=== PATIENT | male | born 1950 | race Caucasian/White ===

== ENCOUNTER 2024-03-02 19:30 | Inpatient (IN) | payer MEDICARE, OTHER, SELFPAY ==
[2024-03-02] VITALS (10 sets, daily range): BP systolic 67–115; BP diastolic 34–63; PULSE 114–160; RESP 18–39; TEMP 37.8–38.9; O2SAT 92–97; BMI 25.2; BMI 23.6
[2024-03-02] MEDS: sodium chloride 0.9% 1,000 ML 999 ML IV ×3 (20:09→20:54)
[2024-03-02] MEDS: ondansetron 2 mg/ML SDV 2 mL 4 MG IVP (20:19)
[2024-03-02] MEDS: morphine 4 mg/mL SDV 1 mL IVP (20:19)
--- NOTE | 2024-03-02 20:19 | XRR_ITS ---
PROCEDURE INFORMATION: Exam: XR Chest Exam date and time: 03/02/2024 8:23 PM Age: 73 years old Clinical indication: Central line, non-tunnelled; TECHNIQUE: Imaging protocol: Radiologic exam of the chest. Views: 1 view. COMPARISON: No relevant prior studies available. FINDINGS: Tubes, catheters and devices: Central venous catheter tip projects over the cavoatrial junction. Lungs: There are prominent interstitial markings. Pleural spaces: Unremarkable. No pleural effusion. No pneumothorax. Heart/Mediastinum: Unremarkable. No cardiomegaly. Bones/joints: Unremarkable. XR/XR chest 1V portable [id number] IMPRESSION: 1. Central venous catheter tip projects over the cavoatrial junction. 2. There are prominent interstitial markings.
[2024-03-02] MEDS: norepinephrine 4 MG/250 ML BAG 18.75 MG IV (20:25)
--- NOTE | 2024-03-02 20:30 | W.ED.AMS ---
HPI - Altered Mental Status General: Chief Complaint: Altered Mental Status Stated Complaint: n/v Time Seen by Provider: 03/02/24 19:32 History of Present Illness: 73-year-old male Evidently with a history of hemolytic anemia. He presents with fever, vomiting, and lethargy. The patient himself is not giving much more history. He did have a large bowel movement on arrival here. Fever is 102. Related Data Home Medications Medication Instructions Recorded Confirmed atorvastatin 20 mg tablet 20 mg PO EVERY OTHER DAY 12/03/23 03/03/24 omeprazole 20 mg capsule,delayed 20 mg PO DAILY 12/03/23 03/03/24 release tamsulosin 0.4 mg capsule 0.4 mg PO DAILY 12/03/23 03/03/24 warfarin 5 mg tablet 7.5 mg PO DAILY 12/03/23 03/03/24 warfarin 5 mg tablet See Rx Instructions .Route .COMPLEX 03/03/24 03/03/24 Previous Rx's Medication Instructions Recorded prednisone 20 mg tablet 40 mg (2 x 20 mg) PO daily #10 tabs 12/03/23 Allergies Allergy/AdvReac Type Severity Reaction Status Date / Time ceftriaxone Allergy rash Verified 12/03/23 11:05 iodine Allergy rash Verified 12/03/23 11:05 Penicillins Allergy Rash Verified 12/03/23 11:01 sertraline Allergy Swelling Verified 12/03/23 11:05 [facility] [place] [facility] PFSH: Medical History GERD (gastroesophageal reflux disease) BPH (benign prostatic hyperplasia) Abnormal cystoscopy Pulmonary embolism Surgical History S/P cholecystectomy Social History Smoking and tobacco/nicotine status: former use of tobacco/nicotine Physical Exam Const: COMMON NORMALS: no acute distress EXAM LIMITATIONS: altered mental status GENERAL APPEARANCE: cooperative, ill appearing and frail appearing ORIENTATION/CONSCIOUSNESS: Yes awake and Yes oriented to person HENMT: COMMON NORMALS: normocephalic and atraumatic HEAD & SCALP: normocephalic and atraumatic FACE & SINUS: normal facial exam Eye: COMMON NORMALS: Equal, round and reactive pupils present and EOMs intact bilaterally PUPIL: Yes Equal, round and reactive pupils present Chest: CHEST: Yes Symmetrical chest wall rise Resp: COMMON NORMALS: clear to auscultation bilaterally EFFORT & INSPECTION: Yes tachypneic, Yes labored and No retractions AUSCULTATION: clear to auscultation bilaterally Cardio: COMMON NORMALS: regular rhythm RATE: tachycardic RHYTHM: regular rhythm GI: COMMON NORMALS: Soft to palpation INSPECTION: Yes normal to inspection and No abdominal wall ecchymosis PALPATION: Yes Soft to palpation, Yes Tenderness to palpation present (GI) (diffusely) and Yes Guarding due to palpation present (GI) Extremity: NARRATIVE EXTREMITY EXAM: cool, atraumatic Neuro: SENSORIUM/ORIENTATION: Yes oriented to person Procedures Central Line Placement Right IJ: Time Out Performed: No Patient Placed on Monitor/Pulse Ox: Yes MD Prep: mask, gown and gloves Central Line Prep: Chlorhexidine scrub Local Anesthetic: lidocaine 1% Amount of anesthesia used (mL): 3 Ultrasound Used for Placement: Yes Central Line Lumen Inserted: triple Post Procedure: sutured in place, good blood return, all ports aspirated, flushed, capped and sterile dressing applied Post Procedure X-Ray: tip of catheter in good position and no pneumothorax seen Patient Tolerated Procedure: well and no complications Complications: none Additional Comments: completed by Dr. Toney Course Vital Signs: Vital signs: Vital Signs Temperature 99.3 F 03/03/24 02:20 Pulse Rate 109 H 03/03/24 02:15 Respiratory Rate 26 H 03/03/24 02:15 Blood Pressure 78/50 03/03/24 02:15 Pulse Oximetry 93 03/03/24 02:15 Oxygen Delivery Me thod Nasal Cannula 03/02/24 23:45 Oxygen Flow Rate 2 03/02/24 21:53 MDM - Altered Mental Status Medical Decision Making 73-year-old patient presenting with vomiting and diarrhea and an elevated temperature. He has mild mental status changes as well, and is in unreliable historian at the point of exam. His blood pressure is significantly low, in the 60s and 70s systolic. He is given well over a 30 mL/kg sepsis bolus IV. He started on pressors, Levophed and vasopressin at 1 point. Levaquin and vancomycin are given. Central line placed. The patient is significantly improved after these interventions. Is now normotensive. CBC is normal. His potassium is 3.1. His bicarb is 17. His lactic is significantly elevated. However, CT of the chest abdomen pelvis does not reveal a cause of sepsis. His CRP is only 3. Leukocyte esterase is negative. Hematuria is present, but there are no obstructive stones present. He would have the ICU. Continue blood pressure support with fluid and pressors as needed. Continue antibiotics. Hospitalist has seen the patient in the ER. Lab Data 03/02/24 20:09 03/02/24 20:09 Radiology Impressions Chest X-Ray 03/02/24 20:19 IMPRESSION: 1. Central venous catheter tip projects over the cavoatrial junction. 2. There are prominent interstitial markings. Chest/Abdomen/Pelvis CT 03/02/24 21:12 IMPRESSION: 1. No pulmonary emboli. 2. Retained secretions in the esophagus up to the level of the thoracic inlet. IMPRESSION: 1. No bowel obstruction or inflammatory process associated with the bowel. 2. No free air or significant free fluid in the abdomen or pelvis. 3. No evidence of appendicitis. 4. Periportal edema which can be seen the setting of acute hepatitis. Laboratory Results WBC 11.13 10^3/uL (3.29-11.43) 03/02/24 20:09 RBC 3.91 10^6/uL (3.85-5.65) 03/02/24 20:09 Hgb 12.60 g/dL (11.27-16.99) 03/02/24 20:09 Hct 38.0 % (37-53) 03/02/24 20:09 MCV 97.2 fl (82-101) 03/02/24 20:09 MCH 32.2 pg (27-33) 03/02/24 20:09 MCHC 33.2 g/dL (30-55) 03/02/24 20: RDW 13.5 % (12.1-15.1) 03/02/24 20:09 Plt Count 346 10^3/cmm (157-399) 03/02/24 20:09 MPV 10.4 fL (7.4-10.4) 03/02/24 20:09 Neut % (Auto) 95.6 % 03/02/24 20:09 Lymph % (Auto) 2.2 % 03/02/24 20:09 [place] % (Auto) 0.4 % 03/02/24 20:09 Eos % (Auto) 0.1 % 03/02/24 20:09 Baso % (Auto) 0.2 % 03/02/24 20:09 Neut # (Auto) 10.64 10^3/uL (1.8-7.7) H 03/02/24 20:09 Lymph # (Auto) 0.2 10^3/uL (0.8-4.8) L 03/02/24 20:09 [place] # (Auto) 0.1 10^3/uL (0.2-0.9) L 03/02/24 20:09 Eos # (Auto) 0.0 10^3/uL (0.0-0.8) 03/02/24 20:09 Baso # (Auto) 0.0 10^3/uL (0.0-0.1) 03/02/24 20:09 Nucleated RBC % (auto) 0.3 % 03/02/24 20:09 Nucleated RBCs # 0.0 /100WBC 03/02/24 20:09 Sodium 139 mmol/L (136-145) 03/02/24 20:09 Potassium 3.1 mmol/L (3.5-5.1) L 03/02/24 20:09 Chloride 106 mmol/L (98-107) 03/02/24 20:09 Carbon Dioxide 17 mmol/L (22-29) L 03/02/24 20:09 Anion Gap 19.1 (5-19) H 03/02/24 20:09 BUN 23 mg/dL (8-23) 03/02/24 20:09 Creatinine 1.1 mg/dL (0.7-1.2) 03/02/24 20:09 GFR Calculation Not Reportable 03/02/24 20:09 Glucose 121 mg/dL (65-115) H 03/02/24 20:09 Estimat Average Glucose 94 03/02/24 20:09 Hemoglobin A1c 4.9 % (4.0-6.0) 03/02/24 20:09 Calculated Osmolality 293 mOsm/kg (285-295) 03/02/24 20:09 Lactic Acid 6.7 mmol/L (0.5-2.2) H* 03/02/24 20:09 Lactic Acid (Sepsis) 7.2 mmol/L (0.5-2.2) H* 03/02/24 22:06 Calcium 8.4 mg/dL (8.5-10.5) L 03/02/24 20:09 Total Bilirubin 0.7 mg/dL (0.15-1.2) 03/02/24 20:09 AST 19 U/L (0-40) 03/02/24 20:09 ALT 20 U/L (0-41) 03/02/24 20:09 Alkaline Phosphatase 77 U/L (40-130) 03/02/24 20:09 Troponin T Baseline 17 ng/L (0-15) H 03/02/24 20:31 Troponin T 120 Minute 36.91 ng/L (0-15) H 03/02/24 22:06 Delta Troponin T 19.91 ABS# (0-10) H* 03/02/24 22:06 C-Reactive Protein 3.0 mg/L (0.0-4.9) 03/02/24 20:09 NT-Pro-B Natriuret Pep 256 pg/mL (0-450) 03/02/24 20:31 Total Protein 5.4 g/dL (6.6-8.7) L 03/02/24 20:09 Albumin 3.3 g/dL (3.5-5.2) L 03/02/24 20:09 Globulin 2.1 g/dL (1.3-4.6) 03/02/24 20:09 Lipase 28 U/L (13-60) 03/02/24 20:09 Vitamin B12 238 pg/mL (232-1245) 03/02/24 20:31 TSH 6.53 uIU/mL (0.27-4.20) H 03/02/24 20:31 Urine Color Yellow (Yellow) 03/02/24 20:41 Urine Appearance Clear (CLEAR) 03/02/24 20:41 Urine pH 5.5 (5-7) 03/02/24 20:41 Ur Specific [place] 1.021 (1.005-1.030) 03/02/24 20:41 Urine Protein 1+ (Negative) A 03/02/24 20:41 Urine Glucose (UA) 2+ (Normal) H 03/02/24 20:41 Urine Ketones Negative (Negative) 03/02/24 20:41 Urine Blood 3+ (Negative) A 03/02/24 20:41 Urine Nitrate Negative (Negative) 03/02/24 20:41 Urine Bilirubin Negative (Negative) 03/02/24 20:41 Urine Urobilinogen 0.2 mg/dL (Negative) 03/02/24 20:41 Ur Leukocyte Esterase Negative (Negative) 03/02/24 20:41 Urine RBC 10-15 /hpf (0-2) H 03/02/24 20:41 Urine WBC 0-4 /hpf (0-5) H 03/02/24 20:41 Ur Squamous Epith Cells 0-4 /hpf (0-5) H 03/02/24 20:41 Amorphous Sediment Not Reportable 03/02/24 20:41 Urine Bacteria Trace /hpf (NONE) 03/02/24 20:41 Coronavirus (PCR) Negative (Negative) 03/02/24 20:05 Influenza A (PCR) Negative (Negative) 03/02/24 20:05 Influenza Type B (PCR) Negative (Negative) 03/02/24 20:05 RSV (PCR) Negative (Negative) 03/02/24 20:05 All radiology interpretation(s) finalized by discharge Critical Care Time Critical Care Time: Critical Care Time: Yes Total Critical Care Time: 40 Attestation: This case had a high probability of a clinically significant, sudden, or life threatening deterioration of this patient's condition which required my full and direct attention, intervention and personal management. Time spent does not include any procedures performed. Discharge Plan Discharge Patient Disposition: Admitted As Inpatient Admit Provider: Addis Nath Clinical Impression: Non-STEMI (non-ST elevated myocardial infarction), Septic shock Condition: Critical Coding Level of Care Code ED Field Clinical Engineer for José Antonio Vasquez
[2024-03-02] MEDS: levofloxacin-dextrose 5 % 750 MG/150 ML PREMIX 100 MG IV (20:31)
[2024-03-02 20:32] LABS: Basophils % 0.2 %; Eosinophils % 0.1 %; Lymphocytes # 0.2 10^3/uL (0.8-4.8); Lymphocytes % 2.2 %; Mean Corpuscular HGB Conc 33.2 g/dL (30-55); Mean Corpuscular Hemoglobin 32.2 pg (27-33); Mean Corpuscular Volume 97.2 fl (82-101); Mean Platelet Volume 10.4 fL (7.4-10.4); Monocytes # 0.1 10^3/uL (0.2-0.9); Monocytes % 0.4 %; Neutrophils # 10.64 10^3/uL (1.8-7.7); Neutrophils % 95.6 %; Nucleated Red Blood Cells % 0.3 %; Platelet Count 346 10^3/cmm (157-399); Red Blood Count 3.91 10^6/uL (3.85-5.65); Red Cell Distribution Width 13.5 % (12.1-15.1); White Blood Count 11.13 10^3/uL (3.29-11.43)
[2024-03-02 20:46] LABS: Alanine Aminotransferase 20 U/L (0-41); Albumin Level 3.3 g/dL (3.5-5.2); Alkaline Phosphatase 77 U/L (40-130); Aspartate Amino Transferase 19 U/L (0-40); Blood Urea Nitrogen 23 mg/dL (8-23); Calcium 8.4 mg/dL (8.5-10.5); Carbon Dioxide 17 mmol/L (22-29); Chloride 106 mmol/L (98-107); Creatinine Clr Calc Pharmacy 64.0316; Globulin 2.1 g/dL (1.3-4.6); Glucose 121 mg/dL (65-115); Lipase 28 U/L (13-60); Osmolality Calculated 293 mOsm/kg (285-295); Sodium 139 mmol/L (136-145); Total Bilirubin 0.7 mg/dL (0.15-1.2); Total Protein 5.4 g/dL (6.6-8.7)
[2024-03-02 20:46] LABS: Bilirubin Urine Negative (Negative); Blood Urine 3+ (Negative); Glucose Urine UA 2+ (Normal); Ketones Urine Negative (Negative); Leukocyte Esterase Urine Negative (Negative); Nitrate Urine Negative (Negative); Protein Urine 1+ (Negative); Specific Gravity, Urine 1.021 (1.005-1.030); Urine Appearance Clear (CLEAR); Urine Color Yellow (Yellow); Urobilinogen Urine 0.2 mg/dL (Negative); pH Urine 5.5 (5-7)
[2024-03-02 20:47] LABS: Anion Gap 19.1 (5-19); Potassium 3.1 mmol/L (3.5-5.1)
[2024-03-02 20:58] LABS: Lactic Sepsis W/Reflex 6.7 mmol/L (0.5-2.2)
[2024-03-02 21:01] LABS: Add Urine Microscopic? YES; Bacteria Urine TRACE /hpf; Squamous Epithelial Cell Urine 0-4 /hpf (0-5); UA Manual Slide Review YES; WBC Urine 0-4 /hpf (0-5)
[2024-03-02] MEDS: ketorolac 30 mg/mL INJ 15 MG IVP (21:05)
[2024-03-02] MEDS: vasopressin 40 UNIT/100 ML PREMIX IV (21:10)
--- NOTE | 2024-03-02 21:12 | CTR_ITS ---
PROCEDURE INFORMATION: Exam: CTA Chest With Contrast Exam date and time: 03/02/2024 9:37 PM Age: 73 years old Clinical indication: Nausea and vomiting; Abdominal pain; Generalized; Shortness of breath; Other: N/a; Prior surgery; Surgery date: 6+ months; Surgery type: Splenectomy. Gb. Patient HX: Tachycardia with hypoxia and hypotension. Diffuse abd pain with n/v. History of lymphoma. ; Additional info: Tachycardia, hypoxia, abd pain vomiting TECHNIQUE: Imaging protocol: Computed tomographic angiography of the chest with contrast. Exam focused on the arteries. 3D rendering (Not supervised by radiologist): MIP and/or 3D reconstructed images were created by the technologist. Radiation optimization: All CT scans at this facility use at least one of these dose optimization techniques: automated exposure control; mA and/or kV adjustment per patient size (includes targeted exams where dose is matched to clinical indication); or iterative reconstruction. Contrast material: OMNI 350; Contrast volume: 167 ml; Contrast route: INTRAVENOUS (IV); COMPARISON: CR (CHEST, ) 03/02/2024 8:23 PM RADIATION DOSE METRICS: Total DLP (mGy-cm): 2409.1 FINDINGS: Pulmonary arteries: No pulmonary emboli. Aorta: Unremarkable. No aortic aneurysm. No aortic dissection. Lungs: Unremarkable. No consolidation. No masses. Pleural spaces: Unremarkable. No pneumothorax. No pleural effusion. Heart: Unremarkable. No cardiomegaly. No pericardial effusion. Coronary arteries: Coronary arterial atherosclerotic calcifications are present. Esophagus: Air-fluid level in the esophagus up to the level of the thoracic inlet. Small hiatal hernia Lymph nodes: Multiple prominent left axillary lymph nodes measuring up to 9 mm in short axis which may be reactive in nature. Bones/joints: Unremarkable. No acute fracture. Soft tissues: Unremarkable. PROCEDURE INFORMATION: Exam: CT Abdomen And Pelvis With Contrast Exam date and time: 03/02/2024 9:37 PM Age: 73 years old Clinical indication: Nausea and vomiting; Abdominal pain; Generalized; Shortness of breath; Other: N/a; Prior surgery; Surgery date: 6+ months; Surgery type: Splenectomy. Gb. Patient HX: Tachycardia with hypoxia and hypotension. Diffuse abd pain with n/v. History of lymphoma. ; Additional info: Tachycardia, hypoxia, abd pain vomiting TECHNIQUE: Imaging protocol: Computed tomography of the abdomen and pelvis with contrast. Radiation optimization: All CT scans at this facility use at least one of these dose optimization techniques: automated exposure control; mA and/or kV adjustment per patient size (includes targeted exams where dose is matched to clinical indication); or iterative reconstruction. Contrast material: OMNI 350; Contrast volume: 167 ml; Contrast route: INTRAVENOUS (IV); COMPARISON: CR (CHEST, ) 03/02/2024 8:23 PM RADIATION DOSE METRICS: Total DLP (mGy-cm): 2409.1 FINDINGS: Liver: Periportal edema. No mass. Gallbladder and biliary ducts: The gallbladder is absent. Pancreas: Normal. No ductal dilation. Spleen: The spleen is absent. Adrenal glands: Normal. No mass. Kidneys and ureters: Multiple nonobstructing stones in the right kidney measuring up to 7 mm and multiple nonobstructing stones in the left kidney measuring up to 6 mm. No hydronephrosis. Stomach and bowel: Unremarkable. No obstruction. No mucosal thickening. Appendix: No evidence of appendicitis. Intraperitoneal space: Unremarkable. No free air. No significant fluid collection. Vasculature: Unremarkable. No abdominal aortic aneurysm. Lymph nodes: Unremarkable. No enlarged lymph nodes. Urinary bladder: There is a Burroughs catheter in the bladder. The bladder is decompressed. Reproductive: Unremarkable as visualized. Bones/joints: Unremarkable. No acute fracture. Soft tissues: Unremarkable. CT/CT angio chest w abd pel w con IMPRESSION: 1. No pulmonary emboli. 2. Retained secretions in the esophagus up to the level of the thoracic inlet. IMPRESSION: 1. No bowel obstruction or inflammatory process associated with the bowel. 2. No free air or significant free fluid in the abdomen or pelvis. 3. No evidence of appendicitis. 4. Periportal edema which can be seen the setting of acute hepatitis.
[2024-03-02 21:22] LABS: Covid PCR NEGATIVE (Negative); Influenza A NEGATIVE (Negative); Influenza B NEGATIVE (Negative); Respiratory Syncytial Virus Ce NEGATIVE (Negative)
[2024-03-02 21:26] LABS: Troponin(5th) Baseline 17 ng/L (0-15)
[2024-03-02 21:28] LABS: Reflex Lactate Order REFLEX LACTIC ORDERD
[2024-03-02 21:35] LABS: NT Pro B Type Natriuretic Pept 256 pg/mL (0-450)
[2024-03-02] MEDS: iohexol 350 mg/mL 500 mL Btl (per mL) IV (21:40)
[2024-03-02] MEDS: methylPREDNISolone sod succ 40 mg/mL INJ IVP (21:52)
[2024-03-02] MEDS: diphenhydrAMINE 50 mg/mL SDV 1mL IVP (21:52)
--- NOTE | 2024-03-02 22:00 | ECG_ITS ---
[facility] Test Date: 2024-03-02 Pat Name: Solis Johnston Department: Room: Gender: Male Psychiatrist: : 1950 Requested By: Manuel Toney Order Number: [id number] Reading MD: HENRY IYER Measurements Intervals [place] Rate: 138 P: 85 UT: 168 QRS: 12 QRSD: 86 T: 84 QT: 329 QTc: 499 Interpretive Statements SINUS TACHYCARDIA POSSIBLE RIGHT VENTRICULAR CONDUCTION DELAY [RSR (QR) IN V1/V2] NONSPECIFIC ST & T-WAVE ABNORMALITY ABNORMAL RHYTHM ECG No previous ECG available for comparison Electronically Signed On 03-04-2024 16:16:58 SCREEN PRINTER HELPER by HENRY IYER [email or web address]
[2024-03-02] MEDS: VANCOMYCIN ADD-Vantage 1,000 MG in 0.9% NaCl ADD-Vantage 250 ML 250 MG IV (22:15)
[2024-03-02 22:45] LABS: Troponin 5 2HR 36.91 ng/L (0-15)
[2024-03-02 22:46] LABS: Troponin 5 2HR Delta 19.91 ABS# (0-10)
[2024-03-02 22:51] LABS: Lactic Acid level (Lactate) 7.2 mmol/L (0.5-2.2)
--- NOTE | 2024-03-02 22:53 | P.HP_ITS ---
Providers/Chief Complaint 2 Chief Complaint: n/v History of Present Illness Solis Johnston is a 73 year old male with history of kidney stones, urine incontinence recently had cystoscopy at [facility], history of PE takes Coumadin presented to the hospital with chief complaint of generalized weakness fatigue rigors and chills. Family is at the bedside, is stating that Solis was working all day outside because it was very pleasant today, he came inside around 6 PM and then started complaining of weakness fatigue lethargy with chills. He was shivering. Patient is not endorsing any dysuria. Patient had 1-2 episode of emesis. Patient not endorsing shortness of breath or chest pain. Patient is showing signs of sepsis, no source has been identified, as per the he had similar incident in the past and no source was identified as well he had a CT chest abdomen pelvis which is showing nonobstructive kidney stones no signs of appendicitis, patient does not have a gallbladder, he was put on vasopressors in the ER by the time I saw him he was taken off pressors, he is getting IV fluids, Patient is not encephalopathic, suspicion for meningitis is low Review of Systems 2 Const: Reports: fever(s), chills, body aches and fatigue Eyes: Denies: change in vision ENMT: Denies: throat pain Card: Denies: chest pain Resp: Denies: dyspnea GI: Reports: nausea and vomiting; Denies: abdominal pain : Denies: flank pain Musc: Denies: neck pain Medications/Allergies Home Medications Medication Instructions Recorded Confirmed Last Taken Type atorvastatin 20 mg tablet 20 mg PO DAILY 12/03/23 12/03/23 Unknown History azithromycin 250 mg tablet See Rx Instructions PO .COMPLEX #6 12/03/23 12/03/23 Unknown Rx tabs omeprazole 20 mg capsule,delayed 20 mg PO DAILY 12/03/23 12/03/23 Unknown History release potassium chloride 10 mEq 10 meq PO DAILY 12/03/23 12/03/23 Unknown History capsule,extended release prednisone 20 mg tablet 40 mg (2 x 20 mg) PO daily #10 tabs 12/03/23 12/03/23 Unknown Rx tamsulosin 0.4 mg capsule 0.4 mg PO DAILY 12/03/23 12/03/23 Unknown History warfarin 5 mg tablet 5 mg PO DAILY 12/03/23 12/03/23 Unknown History Allergies Allergy/AdvReac Type Severity Reaction Status Date / Time ceftriaxone Allergy rash Verified 12/03/23 11:05 iodine Allergy rash Verified 12/03/23 11:05 Penicillins Allergy Rash Verified 12/03/23 11:01 sertraline Allergy Swelling Verified 12/03/23 11:05 PFSH Acute 2 PFSH: Medical History GERD (gastroesophageal reflux disease) BPH (benign prostatic hyperplasia) Abnormal cystoscopy Pulmonary embolism Surgical History S/P cholecystectomy Social History Smoking and tobacco/nicotine status: former use of tobacco/nicotine Vitals/I&O/Wt Last Vital Signs Temp 100.1 F H 03/02/24 21:53 Pulse 140 H 03/02/24 21:53 Resp 35 H 03/02/24 21:53 BP 115/56 03/02/24 21:53 Pulse Ox 95 03/02/24 21:53 O2 Del Method Nasal Cannula 03/02/24 21:53 O2 Flow Rate 2 03/02/24 21:53 03/02/24 03/02/24 03/02/24 06:59 14:59 22:59 Intake Total 2197.363 / 2197.363 Balance 2197.363 / 2197.363 Weight last 48 hrs Weight 82.1 kg Physical Exam 2 Narrative: Patient is awake and alert GCS 15 I do not suspect meningitis Clinical looks dehydrated Abdomen soft No active chest pain Currently on 2 L nasal cannula Febrile with tachycardia Stable blood pressure off pressors Tachypneic tachycardic Able to answer my questions Family at the bedside Burroughs catheter in place Cap refill less than 3 seconds No signs of encephalopathy Urinary Catheter Management: Burroughs: Cath Placed During This Visit: yes Urinary Catheter Date of Insertion: 03/02/24 Urinary Catheter Time of Insertion: 21:00 Data 03/02/24 20:09 03/02/24 20:09 Micro: Microbiology 03/02/24 20:31 Blood Culture - Preliminary Blood SPECIMEN COLLECTED 03/02/24 20:09 Blood Culture - Preliminary Blood SPECIMEN COLLECTED A&P Assessment and plan (1) Septic shock: (2) Bilateral kidney stones: (3) Lymph nodes enlarged: (4) Esophagitis: (5) Hiatal hernia: (6) Non-STEMI (non-ST elevated myocardial infarction): Plan Septic shock Patient required pressors in the ER for couple of hours, Criteria met with tachypnea tachycardia fever high lactic acid, Patient is not encephalopathic Does not suspect meningitis Nonobstructing kidney stones no significant signs of UTI Start patient on broad-spectrum antibiotics Patient has been taken off pressors in the ER, admit to ICU Left axillary lymphadenitis Esophagitis Add Protonix Non-STEMI No active chest pain EKG showing sinus tachycardia Serial troponin EKG Start ACS protocol Requested echo Hematuria related to kidney stones nonobstructing no sign of hydronephrosis, white count is not high on urinalysis to either Acute hypoxia: Interstitial markings on lung imaging: Currently requiring 2 L, Currently on broad-spectrum antibiotics for atypical pneumonia Patient worked outside all day today, Resp panel negative Full code GI soft diet GI prophylaxis Protonix DVT prophylaxis covered with therapeutic Lovenox Admit to ICU Attestations 2 Medical Necessity Statement*: More than 2 midnights anticipated Diagnoses Septic shock A41.9; R65.21 Bilateral kidney stones N20.0 Lymph nodes enlarged R59.9 Esophagitis K20.90 Hiatal hernia K44.9 Non-STEMI (non-ST elevated myocardial infarction) I21.4
[2024-03-03] VITALS (100 sets, daily range): BP systolic 78–115; BP diastolic 42–67; PULSE 105–136; RESP 15–47; TEMP 36.6–37.4; O2SAT 88–96
[2024-03-03 00:16] LABS: Estmated Average Glucose 94; Hemoglobin A1C 4.9 % (4.0-6.0)
[2024-03-03] MEDS: aspirin 325 mg EC Tablet PO (00:30)
[2024-03-03] MEDS: sodium chloride 0.9% 1,000 ML 999 ML IV (00:32)
[2024-03-03 00:35] LABS: Thyroid Stimulating Hormone 6.53 uIU/mL (0.27-4.20); Vitamin B12 238 pg/mL (232-1245)
[2024-03-03] MEDS: aztreonam 2,000 MG in sodium chloride 0.9% (plus) 100 ML 200 MG IV (00:39)
[2024-03-03] MEDS: acetaminophen 500 mg Tablet PO (00:53)
[2024-03-03 01:20] LABS: INR 3.04 (0.8-1.2)
[2024-03-03] MEDS: clopidogrel 300 mg Tablet PO (01:32)
[2024-03-03] MEDS: sodium chloride 0.9% 1,000 ML 75 ML IV ×2 (01:33→14:23)
[2024-03-03] MEDS: norepinephrine 4 MG/250 ML BAG 7.5 MG IV (02:05)
[2024-03-03] MEDS: hydrocortisone 100 mg/2 mL SDV IVP ×4 (03:28→22:09)
[2024-03-03 03:36] LABS: Hematocrit 32.2 % (37-53); Mean Corpuscular HGB Conc 32.3 g/dL (30-55); Mean Corpuscular Hemoglobin 32.1 pg (27-33); Mean Corpuscular Volume 99.4 fl (82-101); Mean Platelet Volume 10.6 fL (7.4-10.4); Platelet Count 235 10^3/cmm (157-399); Red Blood Count 3.24 10^6/uL (3.85-5.65); Red Cell Distribution Width 13.6 % (12.1-15.1); White Blood Count 21.05 10^3/uL (3.29-11.43)
--- NOTE | 2024-03-03 03:49 | ECG_ITS ---
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
[2024-03-03 03:50] LABS: INR 3.03 (0.8-1.2)
[2024-03-03 03:59] LABS: Alanine Aminotransferase 200 U/L (0-41); Albumin Level 2.7 g/dL (3.5-5.2); Alkaline Phosphatase 82 U/L (40-130); Anion Gap 17.1 (5-19); Aspartate Amino Transferase 461 U/L (0-40); Blood Urea Nitrogen 24 mg/dL (8-23); C Reactive Protein 31.3 mg/L (0.0-4.9); Calcium 7.6 mg/dL (8.5-10.5); Carbon Dioxide 18 mmol/L (22-29); Chloride 109 mmol/L (98-107); Creatinine Clr Calc Pharmacy 47.4603; Globulin 1.7 g/dL (1.3-4.6); Glucose 42 mg/dL (65-115); Magnesium 1.2 mg/dL (1.7-2.3); Osmolality Calculated 293 mOsm/kg (285-295); Phosphorus 2.1 mg/dL (2.5-4.5); Potassium 3.1 mmol/L (3.5-5.1); Sodium 141 mmol/L (136-145); Total Bilirubin 2.2 mg/dL (0.15-1.2); Total Protein 4.4 g/dL (6.6-8.7)
[2024-03-03 04:09] LABS: Procalcitonin 62.33 ng/mL (0-0.5)
[2024-03-03 04:11] LABS: Troponin 5 6HR 147.5 ng/L (0-15); Troponin 5 6HR Delta 130.5 ng/L (0-12)
[2024-03-03 04:20] LABS: Absolute Neutrophil 19.4 10^3/cmm (1.4-6.5); Absolute Segmented Neutrophil 15.8 10/cmm (1.6-7.1); Band Neutrophils Absolute 3.6 10^3/cmm (0.0-1.2); Eosinophils 0 %; Lymphocytes 1 %; Lymphocytes Absolute 0.2 10^3/cmm (1.2-3.4); Monocytes Absolute 0.4 10^3/cmm (0.1-0.6); Platelet Estimate Normal (Normal); Segmented Neutrophils 75 %; Slide Review Slide Review Perform; Total Cells Counted 100 (0-100)
[2024-03-03] MEDS: norepinephrine 4 MG/250 ML BAG 45 MG IV ×4 (08:34→23:40)
[2024-03-03] MEDS: VANCOMYCIN ADD-Vantage 1,000 MG in 0.9% NaCl ADD-Vantage 250 ML 250 MG IV ×2 (08:34→20:06)
[2024-03-03] MEDS: tamsulosin 0.4 mg Capsule PO (08:35)
[2024-03-03] MEDS: pantoprazole 40 mg SDV IVP ×2 (08:35→16:43)
[2024-03-03] MEDS: aspirin 81 mg EC Tablet PO (08:35)
[2024-03-03] MEDS: clopidogrel 75 mg Tablet PO (08:35)
--- NOTE | 2024-03-03 08:55 | PHA.VACGOAL ---
Vancomycin Goal - Goal Vancomycin Goal:: 15-20 mg/L Vancomycin Indication:: Other (SEPSIS) - Therapy Current therapy:: Other Antibiotic (AZTREONAM) Day of therpy:: Day []of [] . Actual body weight (kg): 165 lb 5.547 oz - Data Labs: WBC 21.05 10^3/uL (3.29-11.43) H 03/03/24 02:52 RBC 3.24 10^6/uL (3.85-5.65) L 03/03/24 02:52 Hgb 10.40 g/dL (11.27-16.99) L 03/03/24 02:52 Hct 32.2 % (37-53) L 03/03/24 02:52 MCV 99.4 fl (82-101) 03/03/24 02:52 MCH 32.1 pg (27-33) 03/03/24 02:52 MCHC 32.3 g/dL (30-55) 03/03/24 02:52 RDW 13.6 % (12.1-15.1) 03/03/24 02:52 Sodium 141 mmol/L (136-145) 03/03/24 02:52 Potassium 3.1 mmol/L (3.5-5.1) L 03/03/24 02:52 Chloride 109 mmol/L (98-107) H 03/03/24 02:52 Carbon Dioxide 18 mmol/L (22-29) L 03/03/24 02:52 Anion Gap 17.1 (5-19) 03/03/24 02:52 BUN 24 mg/dL (8-23) H 03/03/24 02:52 Creatinine 1.4 mg/dL (0.7-1.2) H 03/03/24 02:52 GFR Calculation Not Reportable 03/03/24 02:52 Last dialysis session:: N/A Treatment plan:: new consult Regimen:: TELEPHARMACY: INITIAL DOSE 1000mg Q12H Follow up:: WILL CONTINUE TO MONITOR AND FOLLOW UP DAILY
[2024-03-03 09:27] LABS: Glucose Point of Care 90 mg/dL (70-110)
--- NOTE | 2024-03-03 10:10 | P.PN_ITS ---
Subjective 2 Subjective: Overnight labs and H&P reviewed. 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 It appears that his biopsy in May of this year was inconclusive but due to high suspicion of lymphoma he has started chemotherapy with rituximab. He received cycle 3 of rituximab on Monday (today is Monday). 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 He is up-to-date with all postsplenectomy immunizations and follows with infectious disease at [facility] typically. He was recently diagnosed with autoimmune hemolytic anemia for which he is on a steroid taper currently. About 3 weeks ago he started treatment with prednisone 80 mg daily and has been tapered down gradually to prednisone 20 mg daily currently. Review of his LFTs from [facility] show that his AST ALT T. bili were elevated with maximum numbers of 170, 70, 3.5 respectively in January of this year, with treatment all of the above numbers had normalized by March 01, 2024. Patient appears to have some degree of chronic leukocytosis with white blood cell count ranging between 10-17 most recently. His states that high leukocyte count predates the use of steroids. He is on long-term warfarin due to a history of DVT and inability to afford Eliquis. He has been having intermittent diarrhea over the past few days. No known past history of C. difficile. History of strep gallolyticus bacteremia in January 2023 for which she received several weeks of ceftriaxone which she tolerated well. Ceftriaxone was listed as an allergy in his chart. Given this updated information, ceftriaxone has now been removed as an allergy. Patient also has a prescription for amoxicillin 1 g 3 times daily as needed to be initiated with onset of fever given he is high risk however states he has not had to use the prescription in the past year. His reported allergic reaction in the past was that of a rash. There is no underlying cardiac or orthopedic hardware. Medications: Reviewed: Yes Vitals/I&O/Wt Last Vital Signs Temp 98.8 F 03/03/24 06:00 Pulse 111 H 03/03/24 08:30 Resp 22 H 03/03/24 08:30 BP 103/51 03/03/24 08:30 Pulse Ox 96 03/03/24 08:30 O2 Del Method Nasal Cannula 03/02/24 23:45 O2 Flow Rate 2 03/02/24 21:53 03/02/24 03/03/24 03/03/24 22:59 06:59 14:59 Intake Total 2197.363 / 2197.363 575.875 / 2773.238 1514.125 / 1514.125 Output Total 900 / 900 Balance 2197.363 / 2197.363 -324.125 / 8728.397 7188.125 / 1514.125 Weight last 48 hrs Weight 75 kg Weight 74.5 kg Weight 82.1 kg Physical Exam 2 Narrative: General: No acute distress, AO x3 HEENT: PERRLA, pupils bilaterally equal and reactive, dry parched mucous membranes with coated tongue. Chest: Normal vesicular breath sounds, no added sounds, equal good air entry bilaterally CVS: S1-S2 regular, no murmurs, no tachycardia, no gallops, no rubs Abdomen: Soft, nontender, no organomegaly, bowel sounds present Neuro: No focal deficits, no facial deformity, AO x3, power 5/5 in all limbs lines: RIJ placed at admission Urinary Catheter Management: Burroughs: Cath Placed During This Visit: yes Reason for Continuing Indwelling Catheter: Accurate Measurement of Urinary Output in Critically Ill Patients Urinary Catheter Date of Insertion: 03/02/24 Urinary Catheter Time of Insertion: 21:00 Data 03/03/24 02:52 03/03/24 02:52 Micro: Microbiology 03/02/24 20:31 Blood Culture - Preliminary Blood Streptococcus species 03/02/24 20:09 Blood Culture - Preliminary Blood Streptococcus species A&P Assessment and plan (1) Septic shock: 73-year-old male with lymphoma, currently on chemotherapy with rituximab, 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 Please see admitting hospitalist note with regards to criteria for septic shock. Overnight blood cultures have revealed presence of Streptococcus species, pending further identification. History of strep gallolyticus bacteremia 1 year ago. Currently patient continues to be on Levophed at 12 mics. Continued need for fluids with normal saline at 75 cc an hour at patient is clinically hypovolemic. Discontinue aztreonam. Change antibiotics to meropenem 2 g IV every 12 hours until blood cultures finalized. Continue vancomycin for now until streptococcal susceptibility available. Review of patient's prior notes from [facility] showed that he has tolerated ceftriaxone in the past without issues. He also has a as needed prescription for amoxicillin. Repeat blood cultures with a.m. labs to determine clearance. Given recent history of high-dose steroid use, will place patient on stress dose steroids with hydrocortisone 100 mg IV every 6 hours until clinically improving. 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 CT of the chest abdomen and pelvis without any obvious consolidation or other abdominal source. Patient had several teeth extracted in May of this year and now wears dentures due to suspected source of Streptococcus gallolyticus bacteremia in the past related to poor dentition. He has had several fittings for dentures throughout this year but none recently. There are noted to be some shallow excoriations over his hard palate. He denies any mucositis with recent rituximab use. UA unremarkable. No recent urinary intervention. Last cystoscopy was 1 month ago which appears close a routine procedure for surgical planning for a bladder lift. He has prostatomegaly without any history of prostatitis. He does not have a port, he gets his Rituxan infusions via peripheral line. No replaced cardiac valves, no orthopedic hardware. (3) Non-STEMI (non-ST elevated myocardial infarction): Denies any chest pain currently EKG without acute ST-T wave changes 6-hour troponin delta at nearly 140. Suspect this to be type II [place] from septic shock No known history of CAD He has received aspirin 325 mg overnight, will continue with aspirin 81 mg p.o. daily. Patient typically on warfarin, current INR is 3. He has been transitioned to Lovenox 1 mg/kg every 12 hours subcutaneously. Discontinue Plavix for now pending cardiology assessment. Has a history of ? Presumed GI bleeding last year. Will consult cardiology. 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 Protonix 40 mg IV every 12 hours (5) Transaminitis: Elevated AST ALT T. bili. Patient has a history of autoimmune hemolytic anemia. Check LDH, check haptoglobin. High-dose steroids hydrocortisone 100 mg every 6 hours Most recent LFTs from outpatient review were normal. Currently transaminitis may be related to shock liver. Will closely monitor for any changes. Plan DVT prophylaxis: Currently on therapeutic anticoagulation Full code Attestations 2 Medical Necessity Statement*: Needs continued ICU admission for pressor support, IV antibiotics, stress dose steroids, patient critically ill Critical Care Time: The high probability of a clinically significant, sudden or life threatening deterioration of the patient's [GI, ID, heme] system(s) required my full and direct attention, intervention and personal management. The critical care time is as shown. 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
[2024-03-03] MEDS: MEROPENEM 2,000 MG in sodium chloride 0.9% (plus) 50 ML 100 MG IV ×2 (10:37→22:08)
[2024-03-03] MEDS: diphenhydrAMINE 12.5 mg/5 mL UDC 10 mL 25 MG PO ×2 (14:12→22:46)
[2024-03-03] MEDS: morphine IR 15 mg Tablet PO (15:17)
--- NOTE | 2024-03-03 16:06 | P.CONIM_ITS ---
Providers/Reason For Consult 2 Consulting Physician/Specialty*: Addis Tolliver MD Reason for Consult*: Elevated cardiac markers and the patient with sepsis Requesting Physician: Dr. Pena Attending Physician: Tania Naranjo MD History of Present Illness History of Present Illness Solis Johnston is a 73 year old male past medical history significant for no major cardiac problem such as coronary artery disease cardiomyopathy CHF atrial fibrillation recently had renal stone underwent cystoscopy and removal, history of pulmonary embolism on Coumadin presented with generalized weakness fatigue noted to be in sepsis, troponin came back trending up with delta increasing, EKG showed sinus rhythm right bundle branch block incomplete otherwise no significant ST's ST changes, patient continues to remain stable hemodynamically denies categorically chest pain, it is the reason we have been asked to assist in his care. Medications/Allergies Home Medications Medication Instructions Recorded Confirmed Last Taken Type atorvastatin 20 mg tablet 20 mg PO EVERY OTHER DAY 12/03/23 03/03/24 03/01/24 07:00 History omeprazole 20 mg capsule,delayed 20 mg PO DAILY 12/03/23 03/03/24 03/02/24 07:00 History release prednisone 20 mg tablet 40 mg (2 x 20 mg) PO daily #10 tabs 12/03/23 03/03/24 03/02/24 07:00 Rx tamsulosin 0.4 mg capsule 0.4 mg PO DAILY 12/03/23 03/03/24 03/02/24 07:00 History warfarin 5 mg tablet 7.5 mg PO DAILY 12/03/23 03/03/24 03/01/24 07:00 History warfarin 5 mg tablet See Rx Instructions .Route .COMPLEX 03/03/24 03/03/24 03/02/24 07:00 History Allergies Allergy/AdvReac Type Severity Reaction Status Date / Time iodine Allergy rash Verified 12/03/23 11:05 Penicillins Allergy Rash Verified 12/03/23 11:01 sertraline Allergy Swelling Verified 12/03/23 11:05 Current Medications Generic Name Dose Route Start Last Admin Trade Name Freq PRN Reason Stop Dose Admin Acetaminophen 500 mg 03/02/24 23:55 03/03/24 00:53 Acetaminophen 500 Mg Tablet PO 500 mg Q4H PRN Administration fever Aspirin 81 mg 03/03/24 09:00 03/03/24 08:35 Aspirin 81 Mg Ec Tablet PO 81 mg DAILY ENIO Administration Diphenhydramine HCl 25 mg 03/03/24 10:06 03/03/24 14:12 Diphenhydramine 12.5 Mg/5 Ml Udc 10 Ml PO 25 mg Q8H PRN Administration sleep Hydrocortisone Sodium Succinate 100 mg 03/03/24 10:30 03/03/24 10:50 Hydrocortisone 100 Mg/2 Ml Sdv IVP Not Given Q6H ENIO Norepinephrine Bitartrate 4 mg in 250 mls @ 0 mls/hr 03/02/24 20:00 03/03/24 14:12 Levophed IV 12 mcg/min .Q0M ENIO 45 mls/hr Administration Protocol Per Protocol Sodium Chloride 1,000 mls @ 75 mls/hr 03/02/24 23:55 03/03/24 14:23 Sodium Chloride 0.9% IV 75 mls/hr .[id number] ENIO Administration Vancomycin HCl 1,000 mg/ 250 mls @ 250 mls/hr 03/03/24 09:00 03/03/24 10:05 Sodium Chloride IV Infused Q12H ENIO Infusion Meropenem 2,000 mg/ Sodium 50 mls @ 100 mls/hr 03/03/24 10:30 03/03/24 11:15 Chloride IV Infused Q12H ENIO Infusion Protocol Morphine Sulfate 15 mg 03/02/24 23:55 03/03/24 15:17 Morphine Ir 15 Mg Tablet PO 15 mg Q6H PRN Administration MODERATE PAIN Pantoprazole Sodium 40 mg 03/03/24 08:00 03/03/24 08:35 Pantoprazole 40 Mg Sdv IVP 40 mg BID@08,16 ENIO Administration Tamsulosin HCl 0.4 mg 03/03/24 09:00 03/03/24 08:35 Tamsulosin 0.4 Mg Capsule PO 0.4 mg DAILY ENIO Administration PFSH Acute 2 PFSH: Medical History GERD (gastroesophageal reflux disease) BPH (benign prostatic hyperplasia) Abnormal cystoscopy Pulmonary embolism Surgical History S/P cholecystectomy Social History Smoking and tobacco/nicotine status: former use of tobacco/nicotine Vitals/I&O/Wt Last Vital Signs Temp 98 F 03/03/24 15:00 Pulse 118 H 03/03/24 15:15 Resp 28 H 03/03/24 15:17 BP 96/63 03/03/24 15:15 Pulse Ox 92 03/03/24 15:15 O2 Del Method Nasal Cannula 03/03/24 10:42 O2 Flow Rate 2 03/03/24 10:42 03/03/24 03/03/24 03/03/24 06:59 14:59 22:59 Intake Total 575.875 / 2773.238 3076.625 / 3076.625 Output Total 900 / 900 Balance -324.125 / 8693.706 2410.625 / 3076.625 Weight last 48 hrs Weight 165 lb 5.547 oz Weight 164 lb 3.91 oz Weight 181 lb Physical Exam 2 Const: OTHER: GENERAL: Patient is alert, awake and oriented x3. HEART: Regular S1 and S2. No murmur, rub or gallop. LUNGS: Clear to auscultate bilaterally. CENTRAL NERVOUS SYSTEM: Grossly nonfocal. EXTREMITIES: Lower extremities with out edema bilaterally. Urinary Catheter Management: Burroughs: Cath Placed During This Visit: yes Reason for Continuing Indwelling Catheter: Accurate Measurement of Urinary Output in Critically Ill Patients Urinary Catheter Date of Insertion: 03/02/24 Urinary Catheter Time of Insertion: 21:00 Data 03/03/24 02:52 03/03/24 02:52 Micro: Microbiology 03/02/24 20:31 Blood Culture - Preliminary Blood Streptococcus species 03/02/24 20:09 Blood Culture - Preliminary Blood Streptococcus species A&P Assessment and plan (1) Non-STEMI (non-ST elevated myocardial infarction): Given not mended risk factor for acute coronary syndrome no prior personal history of heart problem it appeared to me that non-STEMI could be type II and secondary to sepsis will ask for echocardiogram to assess LV function any wall motion abnormality. Further plan be devised then. (2) Septic shock: Continue treatment with antibiotics as recommended Consult Attestations 2 Medical Necessity Statement: As per medicine Coding Level of Care Code Acute Code for [facility] Fwd Diagnoses Non-STEMI (non-ST elevated myocardial infarction) I21.4 Septic shock A41.9; R65.21
[2024-03-03 17:12] LABS: Glucose Point of Care 98 mg/dL (70-110)
[2024-03-03] MEDS: lidocaine 5% Patch 1 PATCH TOPICAL (18:00)
[2024-03-03 20:26] LABS: Glucose Point of Care 160 mg/dL (70-110)
[2024-03-03] MEDS: ipratropium-albuterol 3 mL Neb INHALATION (23:35)
[2024-03-04] VITALS (97 sets, daily range): BP systolic 84–117; BP diastolic 58–81; PULSE 101–163; RESP 14–36; TEMP 36.4–37.2; O2SAT 89–97; BMI 24.3
--- NOTE | 2024-03-04 00:22 | XRR_ITS ---
PROCEDURE INFORMATION: Exam: XR Chest Exam date and time: 03/04/2024 12:49 AM Age: 73 years old Clinical indication: Shortness of breath; Prior surgery; Surgery date: 6+ months; Surgery type: Gb. Splenectomy. Patient HX: SOB with audible rales. History of lymphoma. RT central line in place. ; Additional info: Crackles in lungs TECHNIQUE: Imaging protocol: Radiologic exam of the chest. Views: 1 view. COMPARISON: CT angio chest w abd pel w con 03/02/2024 9:37 PM FINDINGS: Tubes, catheters and devices: Right IJ catheter terminates at the superior cavoatrial junction. Lungs: Left basilar atelectasis. Slightly increased bilateral interstitial thickening. New small focal density in the right midlung. Pleural spaces: No pleural effusion. No pneumothorax. Heart/Mediastinum: Cardiomegaly. Bones/joints: No acute findings. XR/XR chest 1V portable [id number] IMPRESSION: 1. New small focal airspace opacity in the right midlung. 2. Similar background of increased bilateral interstitial thickening which may represent a mild component of interstitial pulmonary edema or atypical infection.
--- NOTE | 2024-03-04 00:30 | PC.NURSE ---
Crackles Patient short of breath with a RR in the mid 20s with visible use of accessory muscles and new crackles auscultated in the right lung. Nasal cannula titrated from 2 L to 4 L previously in shift, RT notified of increased work of breathing. NS administering at 75 ml/hr. Dr. Nath contacted; orders received for a chest xray and to hold the maintenance fluids.
[2024-03-04] MEDS: morphine IR 15 mg Tablet PO (00:57)
--- NOTE | 2024-03-04 03:35 | PC.NURSE ---
Lasix/Bipap Patient's respiratory effort still labored with accessory muscle use and a RR maintaining in the mid 20s. Patient still stating that he feels short of breath and is uncomfortable. Dr. Nath contacted, xray results discussed; order received to place patient on bipap and give 20 mg lasix IVP once.
[2024-03-04] MEDS: hydrocortisone 100 mg/2 mL SDV IVP ×3 (04:42→18:07)
[2024-03-04] MEDS: FUROsemide 10 mg/mL SDV 2mL 20 MG IVP (04:42)
[2024-03-04] MEDS: norepinephrine 4 MG/250 ML BAG 37.5 MG IV ×2 (05:26→12:16)
[2024-03-04 05:46] LABS: Basophils # 0.2 10^3/uL (0.0-0.1); Basophils % 0.5 %; Eosinophils % 0.1 %; Lymphocytes # 0.1 10^3/uL (0.8-4.8); Lymphocytes % 0.3 %; Mean Platelet Volume 10.2 fL (7.4-10.4); Monocytes # 1.1 10^3/uL (0.2-0.9); Monocytes % 2.7 %; Neutrophils # 35.99 10^3/uL (1.8-7.7); Neutrophils % 86.3 %; Nucleated Red Blood Cells # 0.1 /100WBC; Nucleated Red Blood Cells % 0.1 %; Platelet Count 171 10^3/cmm (157-399); Red Cell Distribution Width 14.1 % (12.1-15.1)
[2024-03-04 05:55] LABS: INR 2.39 (0.8-1.2)
[2024-03-04 06:03] LABS: Alanine Aminotransferase 162 U/L (0-41); Albumin Level 2.9 g/dL (3.5-5.2); Alkaline Phosphatase 78 U/L (40-130); Anion Gap 17.6 (5-19); Aspartate Amino Transferase 154 U/L (0-40); Blood Urea Nitrogen 38 mg/dL (8-23); Calcium 7.2 mg/dL (8.5-10.5); Carbon Dioxide 17 mmol/L (22-29); Chloride 110 mmol/L (98-107); Creatinine Clr Calc Pharmacy 41.6406; Globulin 2.4 g/dL (1.3-4.6); Glucose 148 mg/dL (65-115); Lactate Dehydrogenase 336 U/L (135-225); Magnesium 1.5 mg/dL (1.7-2.3); Osmolality Calculated 304 mOsm/kg (285-295); Potassium 3.6 mmol/L (3.5-5.1); Sodium 141 mmol/L (136-145); Total Bilirubin 0.9 mg/dL (0.15-1.2); Total Protein 5.3 g/dL (6.6-8.7)
[2024-03-04 06:29] LABS: White Blood Count 41.72 10^3/uL (3.29-11.43)
[2024-03-04 06:30] LABS: Slide Review Slide Review Perform
[2024-03-04] MEDS: tamsulosin 0.4 mg Capsule PO (08:49)
[2024-03-04] MEDS: pantoprazole 40 mg SDV IVP ×2 (08:49→16:31)
[2024-03-04] MEDS: aspirin 81 mg EC Tablet PO (08:49)
[2024-03-04] MEDS: lidocaine 5% Patch 1 PATCH TOPICAL (08:49)
[2024-03-04] MEDS: VANCOMYCIN ADD-Vantage 1,000 MG in 0.9% NaCl ADD-Vantage 250 ML 250 MG IV ×2 (09:10→21:41)
--- NOTE | 2024-03-04 10:00 | PM.PN ---
Subjective Subjective: Leukocytosis worsening today. Overnight patient became hypoxic, short of breath. Needed to be placed on BiPAP. IV fluids were discontinued. X-ray showed bilateral infiltrates appearing to be pulmonary edema. He received Lasix. Creatinine at 1.6 today. Urine output has been over 2500 cc. Patient more lethargic today. LFTs are stable. Medications: Reviewed: Yes Vitals/I&O/Wt Last Vital Signs Temp 99.0 F 03/04/24 16:00 Pulse 105 H 03/04/24 16:30 Resp 21 H 03/04/24 16:30 BP 112/76 03/04/24 16:30 Pulse Ox 95 03/04/24 16:30 O2 Del Method Nasal Cannula 03/04/24 16:00 O2 Flow Rate 4 03/04/24 16:00 FiO2 40 03/04/24 06:15 03/04/24 03/04/24 03/04/24 06:59 14:59 22:59 Intake Total 1236.50 / 5051.375 825 / 825 157.25 / 982.25 Output Total 1550 / 2550 1100 / 1100 Balance -313.50 / 2501.375 825 / 825 -942.75 / -117.75 Weight last 48 hrs Weight 77 kg Weight 75 kg Weight 74.5 kg Weight 82.1 kg Physical Exam Narrative: General: Appearing to be more lethargic today. HEENT: PERRLA, pupils bilaterally equal and reactive, dry parched mucous membranes with coated tongue. Chest: Normal vesicular breath sounds, no added sounds, equal good air entry bilaterally CVS: S1-S2 regular, no murmurs, no tachycardia, no gallops, no rubs Abdomen: Soft, nontender, no organomegaly, bowel sounds present Neuro: No focal deficits, no facial deformity, AO x3, power 5/5 in all limbs lines: RIJ placed at admission Urinary Catheter Management: Ubrroughs: Cath Placed During This Visit: yes Reason for Continuing Indwelling Catheter: Accurate Measurement of Urinary Output in Critically Ill Patients Urinary Catheter Date of Insertion: 03/02/24 Urinary Catheter Time of Insertion: 21:00 Data 03/04/24 05:31 03/04/24 05:31 Micro: Microbiology 03/04/24 05:31 Blood Culture - Preliminary Blood SPECIMEN COLLECTED 03/04/24 05:37 Blood Culture - Preliminary Blood SPECIMEN COLLECTED A&P Assessment and plan (1) Septic shock: 73-year-old male with lymphoma, currently on chemotherapy with rituximab, 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 Please see admitting hospitalist note with regards to criteria for septic shock. Overnight blood cultures have revealed presence of Streptococcus species, pending further identification. History of strep gallolyticus bacteremia 1 year ago. Currently patient continues to be on Levophed at 12 mics. Continued need for fluids with normal saline at 75 cc an hour at patient is clinically hypovolemic. Discontinue aztreonam. Change antibiotics to meropenem 2 g IV every 12 hours until blood cultures finalized. Continue vancomycin for now until streptococcal susceptibility available. Review of patient's prior notes from [facility] showed that he has tolerated ceftriaxone in the past without issues. He also has a as needed prescription for amoxicillin. Repeat blood cultures with a.m. labs to determine clearance. Given recent history of high-dose steroid use, will place patient on stress dose steroids with hydrocortisone 100 mg IV every 6 hours until clinically improving. 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 CT of the chest abdomen and pelvis without any obvious consolidation or other abdominal source. Patient had several teeth extracted in May of this year and now wears dentures due to suspected source of Streptococcus gallolyticus bacteremia in the past related to poor dentition. He has had several fittings for dentures throughout this year but none recently. There are noted to be some shallow excoriations over his hard palate. He denies any mucositis with recent rituximab use. UA unremarkable. No recent urinary intervention. Last cystoscopy was 1 month ago which appears close a routine procedure for surgical planning for a bladder lift. He has prostatomegaly without any history of prostatitis. He does not have a port, he gets his Rituxan infusions via peripheral line. No replaced cardiac valves, no orthopedic hardware. (3) Non-STEMI (non-ST elevated myocardial infarction): Denies any chest pain currently EKG without acute ST-T wave changes 6-hour troponin delta at nearly 140. Suspect this to be type II [place] from septic shock No known history of CAD He has received aspirin 325 mg overnight, will continue with aspirin 81 mg p.o. daily. Patient typically on warfarin, current INR is 3. He has been transitioned to Lovenox 1 mg/kg every 12 hours subcutaneously. Discontinue Plavix for now pending cardiology assessment. Has a history of ? Presumed GI bleeding last year. Will consult cardiology. 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 Protonix 40 mg IV every 12 hours (5) Transaminitis: Elevated AST ALT T. bili. Patient has a history of autoimmune hemolytic anemia. Check LDH, check haptoglobin. High-dose steroids hydrocortisone 100 mg every 6 hours Most recent LFTs from outpatient review were normal. Currently transaminitis may be related to shock liver. Will closely monitor for any changes. Plan DVT prophylaxis: Currently on therapeutic anticoagulation Full code 03/04/2024 Patient continues to be critically ill. Currently on Levophed at 10 mics. White blood cell count worsened at 41,000 today. May potentially also be contributed by high-dose steroids. Tmax 99 Fahrenheit. Overnight events as above. IV fluids discontinued. With elevated WBC count, concern for potential tumor lysis. Check uric acid, phosphorus, ionized calcium levels to further assess. Additionally check ammonia levels, check C. difficile PCR from stool. He is yet to have a bowel movement since admission. INR down to 2.3 today. Will be starting Lovenox 1 mg/kg subcutaneously. Slightly worsening kidney function however urine output remains adequate at over 2500 cc Continuing meropenem and vancomycin for now while pending final identification from blood cultures. Continue stress dose steroids hydrocortisone 100 mg IV every 8 hours. Discontinue Benadryl as needed which was started yesterday as patient appearing to be more lethargic today. Hypomagnesemia replaced. Transaminitis improving. T. bili normal. Haptoglobin normal. Less likely to be hemolysis. awaiting echocardiogram for NSTEMI. Attestations Medical Necessity Statement*: continued ICU asmission , pt critically illl Critical Care Time: The high probability of a clinically significant, sudden or life threatening deterioration of the patient's [cardiac, resp, heme, ID] system(s) required my full and direct attention, intervention and personal management. The critical care time is as shown. 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
[2024-03-04] MEDS: MEROPENEM 2,000 MG in sodium chloride 0.9% (plus) 50 ML 100 MG IV ×2 (10:23→21:29)
[2024-03-04] MEDS: magnesium sulfate premix 1 GM/100 ML PIGGYBACK IV (10:34)
[2024-03-04 10:54] LABS: LAB Peripheral Smear Sent for Review
[2024-03-04 11:02] LABS: Phosphorus 5.3 mg/dL (2.5-4.5); Uric Acid 4.6 mg/dL (3.4-7.0)
[2024-03-04] MEDS: enoxaparin 80 mg/0.8 mL Syringe 70 MG SUBCUT ×2 (11:04→21:51)
[2024-03-04 12:50] LABS: ABG PCO2 34.6 mmHg (35-45); ABG PH Result 7.32 (7.35-7.45); Arterial Blood Gas Hematocrit 38.8 % (42-52); Base Excess ABG -7.4 mmol/L (-2.0-2.0); Blood Gas Allen Test Pos; Blood Gas Operator Identificat GD; Blood Gas Sample Site Radial, left; Blood Gas Sample Type Arterial; HCO3 ABG 17.9 mmol/L (22-26); Oxygen Device NC; PO2 FiO2 Ratio Arterial Blood 217
[2024-03-04 14:29] LABS: Lactate (Lactic Acid level) 2.7 mmol/L (0.5-2.2)
[2024-03-04 14:30] LABS: Ammonia 154 umol/L (16-60)
--- NOTE | 2024-03-04 14:36 | P.PN_ITS ---
<Statement entered by Addis Tolliver MD - 03/04/24 22:23> Patient was evaluated and cared for in conjunction with an advanced practice practitioner. I personally examined the patient and reviewed the chart and all pertinent data including imaging, telemetry, and laboratory results. I discussed the patient in detail with the advanced practice practitioner. Please see their note for complete H&P testing result and agreed upon plan of care for the patient. Subjective 2 Subjective: Patient continues to remain chest pain-free. WBC continues to climb. Vitals/I&O/Wt Last Vital Signs Temp 97.8 F 03/04/24 12:00 Pulse 104 H 03/04/24 12:30 Resp 16 03/04/24 12:30 BP 104/71 03/04/24 12:30 Pulse Ox 94 03/04/24 12:30 O2 Del Method Nasal Cannula 03/04/24 12:00 O2 Flow Rate 4 03/04/24 12:00 FiO2 40 03/04/24 06:15 03/03/24 03/04/24 03/04/24 22:59 06:59 14:59 Intake Total 738.25 / 3814.875 1236.50 / 5051.375 825 / 825 Output Total 1000 / 1000 1550 / 2550 Balance -261.75 / 2814.875 -313.50 / 2501.375 825 / 825 Weight last 48 hrs Weight 169 lb 12.095 oz Weight 165 lb 5.547 oz Weight 164 lb 3.91 oz Weight 181 lb Physical Exam 2 Narrative: General: No apparent distress, Muskuloskeletal: Full ROM Lymphatic: no lymphedema noted Respiratory: Normal respiratory effort, left lower lobe diminished right lobe clear, no use of accessory muscles Cardio: No JVD, regular rate, regular rhythm, S1 S2 normal, no murmurs, peripheral pulses 2+ throughout GI: Normal to inspection, nondistended Extremities: Full ROM, normal, normal capillary refill, no cyanosis or edema Neuro: Alert and oriented x4, no focal motor deficits Psych: Affect normal, denies suicidal ideation, mental status grossly normal Skin: No rashes or lesions noted, no wounds Urinary Catheter Management: Burroughs: Cath Placed During This Visit: yes Reason for Continuing Indwelling Catheter: Accurate Measurement of Urinary Output in Critically Ill Patients Urinary Catheter Date of Insertion: 03/02/24 Urinary Catheter Time of Insertion: 21:00 Data 03/04/24 05:31 03/04/24 05:31 Micro: Microbiology 03/04/24 05:31 Blood Culture - Preliminary Blood SPECIMEN COLLECTED 03/04/24 05:37 Blood Culture - Preliminary Blood SPECIMEN COLLECTED 03/02/24 20:31 Blood Culture - Preliminary Blood Streptococcus species 03/02/24 20:09 Blood Culture - Preliminary Blood Streptococcus species A&P Assessment and plan (1) Non-STEMI (non-ST elevated myocardial infarction): Given not mended risk factor for acute coronary syndrome no prior personal history of heart problem it appeared to me that non-STEMI could be type II and secondary to sepsis Awaiting echo. Further recommendations after this. Patient did have diminished left lower lobe. X-ray showed possible pulmonary edema. Patient given lasix 20 mg. (2) Septic shock: Continue treatment with antibiotics as recommended Plan As stated above. Attestations 2 Medical Necessity Statement*: Deferred to primary Coding Level of Care Code Acute Code for [facility] Diagnoses Non-STEMI (non-ST elevated myocardial infarction) I21.4 Septic shock A41.9; R65.21
[2024-03-04] MEDS: lactulose oral liq 20 gm/30 mL UDC PO (18:07)
--- NOTE | 2024-03-04 22:28 | ECG_ITS ---
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 Measurements Intervals [place] Rate: 161 P: 0 UT: 0 QRS: -15 QRSD: 89 T: -15 QT: 273 QTc: 447 Interpretive Statements ATRIAL FIBRILLATION WITH RAPID VENTRICULAR RESPONSE WITH ABERRANT CONDUCTION OR VENTRICULAR PREMATURE COMPLEXES NONSPECIFIC T-WAVE ABNORMALITY CRITICAL TEST RESULT INTERPRETATION BASED ON A DEFAULT AGE OF 40 YEARS Compared to ECG 03/03/2024 03:49:05 Ventricular premature complex(es) now present Aberrant conduction of supraventricular beat(s) now present Sinus tachycardia no longer present Incomplete right bundle-branch block no longer present T-wave abnormality still present Electronically Signed On 03-06-2024 01:01:31 [employer]AL TEMPLATE [employer] by Mana Multani M.D. [id number]
--- NOTE | 2024-03-04 22:30 | PC.NURSE ---
AFib Patient's heart rate increased into the 160s. EKG obtained resulting afib with RVR. Dr. Nath on unit; order received to administer an amio bolus followed by an amio drip per protocol.
[2024-03-04] MEDS: amiodarone 150 MG/100 ML PREMIX 400 MG IV (22:38)
[2024-03-04 23:33] LABS: Glucose Point of Care 196 mg/dL (70-110)
--- NOTE | 2024-03-04 23:40 | PC.NURSE ---
Digoxin Patient's heart rhythm still afib RVR with a rate in the 140-150s. Additionally, patient complaining of blurry vision. Patient alert and oriented with equal bilateral setter cold rolling machine strength and no facial droop noted. Dr. Nath notified; physician to place order for digoxin IVP. No other orders received.
[2024-03-04] MEDS: digoxin 250 mcg/ml INJ 2 mL IVP (23:47)
[2024-03-05] VITALS (91 sets, daily range): BP systolic 80–131; BP diastolic 60–85; PULSE 105–157; RESP 14–34; TEMP 36.6–36.8; O2SAT 93–99; BMI 24.3
--- NOTE | 2024-03-05 01:40 | PC.NURSE ---
Afib Patient's heart rate maintaining 140-150s while patient complaining of additional shortness of breath. Patient's oxygen saturation remaining in the low 90s on 4L NC. Dr. Nath notified; no additional orders received.
[2024-03-05] MEDS: norepinephrine 4 MG/250 ML BAG 22.5 MG IV (01:49)
[2024-03-05] MEDS: hydrocortisone 100 mg/2 mL SDV IVP ×3 (01:52→23:56)
[2024-03-05 03:26] LABS: C.Diff PCR (Lab) NEGATIVE (Negative)
[2024-03-05 05:39] LABS: Hematocrit 30.5 % (37-53); Mean Corpuscular HGB Conc 31.8 g/dL (30-55); Mean Corpuscular Hemoglobin 31.6 pg (27-33); Mean Corpuscular Volume 99.3 fl (82-101); Mean Platelet Volume 11.8 fL (7.4-10.4); Platelet Count 73 10^3/cmm (157-399); Red Blood Count 3.07 10^6/uL (3.85-5.65); Red Cell Distribution Width 14.3 % (12.1-15.1)
[2024-03-05 05:50] LABS: INR 2.28 (0.8-1.2)
--- NOTE | 2024-03-05 06:00 | USCV_ITS ---
Solis Johnston Age: 73 Gender: M : 1950 Exam Date: 03/05/2024 15:26 Ordering Phys: Addis Nath MD Technologist: Exam Location: [facility] Indication: tach BP: 101 / 69 HR: Rhythm: Sinus Technical Quality: Adequate MEASUREMENTS (Male / Female) Normal Values 2D ECHO LV Diastolic Diameter PLAX 4.6 cm 4.2 - 5.9 / 3.9 - 5.3 cm IVS Diastolic Thickness 1.3 cm 0.6 - 1.0 / 0.6 - 0.9 cm IVS Systolic Thickness 1.8 cm LVPW Diastolic Thickness 1.2 cm 0.6 - 1.0 / 0.6 - 0.9 cm LVPW Systolic Thickness 1.2 cm LVOT Diameter 2.0 cm LV Ejection Fraction 2D Teich 50.3 % LV Ejection Fraction MOD 4C 57.0 % LV Ejection Fraction MOD 2C 42.3 % LV Ejection Fraction 2C AL 46.1 % LA Diameter 3.9 cm RA Systolic Volume 4C AL 23.4 ml RA Systolic Volume 4C MOD 25.3 ml Aorta at Sinotubular Diameter 2.8 cm IVC Diameter 2.1 cm M-MODE LA Ao Ratio MM 1.1 AV Cusp Separation MM 1.7 cm FINDINGS Left Ventricle Right Ventricle Right Atrium Left Atrium Mitral Valve Aortic Valve Tricuspid Valve Pulmonic Valve Pericardium Aorta IVC CONCLUSIONS Limited echocardiogram performed because of patient's tachycardia. Grossly LV systolic function is normal with estimated EF of 50 to 55%. Regional wall motion abnormalities cannot accurately be assessed because of tachycardia. Once patient's heart rate is well-controlled, repeat complete echocardiogram Pérez Vasquez MD (Electronically Signed) Final Date: 05 March 2024 16:10 S
[2024-03-05 06:03] LABS: Ammonia 26 umol/L (16-60)
[2024-03-05 06:13] LABS: Magnesium 2.1 mg/dL (1.7-2.3); Phosphorus 4.4 mg/dL (2.5-4.5)
[2024-03-05 06:14] LABS: Alanine Aminotransferase 170 U/L (0-41); Albumin Level 2.8 g/dL (3.5-5.2); Alkaline Phosphatase 96 U/L (40-130); Anion Gap 17.4 (5-19); Aspartate Amino Transferase 159 U/L (0-40); Blood Urea Nitrogen 48 mg/dL (8-23); Calcium 7.2 mg/dL (8.5-10.5); Carbon Dioxide 18 mmol/L (22-29); Chloride 111 mmol/L (98-107); Creatinine Clr Calc Pharmacy 35.4459; Globulin 1.8 g/dL (1.3-4.6); Glucose 192 mg/dL (65-115); Osmolality Calculated 314 mOsm/kg (285-295); Potassium 3.4 mmol/L (3.5-5.1); Sodium 143 mmol/L (136-145); Total Bilirubin 0.9 mg/dL (0.15-1.2); Total Protein 4.6 g/dL (6.6-8.7)
[2024-03-05 06:16] LABS: NT Pro B Type Natriuretic Pept 22363 pg/mL (0-450)
[2024-03-05 06:17] LABS: Slide Review Slide Review Perform
[2024-03-05 06:19] LABS: Absolute Neutrophil 46.7 10^3/cmm (1.4-6.5); Absolute Segmented Neutrophil 30.8 10/cmm (1.6-7.1); Band Neutrophils Absolute 15.9 10^3/cmm (0.0-1.2); Eosinophils 0 %; Lymphocytes 1 %; Platelet Estimate Decreased (Normal); Segmented Neutrophils 64 %; Total Cells Counted 100 (0-100)
[2024-03-05 08:31] LABS: Vancomycin Trough 25.7 ug/mL (10-15)
[2024-03-05] MEDS: tamsulosin 0.4 mg Capsule PO (09:04)
[2024-03-05] MEDS: pantoprazole 40 mg SDV IVP ×2 (09:04→16:02)
[2024-03-05] MEDS: lidocaine 5% Patch 1 PATCH TOPICAL ×2 (09:04→23:53)
[2024-03-05] MEDS: aspirin 81 mg EC Tablet PO (09:04)
[2024-03-05] MEDS: digoxin 250 mcg/ml INJ 2 mL 125 MCG IVP (10:30)
[2024-03-05] MEDS: MEROPENEM 2,000 MG in sodium chloride 0.9% (plus) 50 ML 100 MG IV ×2 (10:31→23:55)
--- NOTE | 2024-03-05 11:00 | P.PN_ITS ---
Subjective 2 Subjective: levophed requirement down to 2 mcg today. Leukocytosis worsening, macrina worsening but urine output > 1600 cc. overnight went into a fib with rvr . 5Bm overnight after lactulose, ammonia normalized Medications: Reviewed: Yes Vitals/I&O/Wt Last Vital Signs Temp 98 F 03/05/24 12:45 Pulse 130 H 03/05/24 16:00 Resp 16 03/05/24 16:00 BP 103/66 03/05/24 16:00 Pulse Ox 96 03/05/24 16:00 O2 Del Method Nasal Cannula 03/05/24 16:00 O2 Flow Rate 4 03/05/24 16:00 FiO2 40 03/04/24 06:15 03/05/24 03/05/24 03/05/24 06:59 14:59 22:59 Intake Total 714.032 / 1864.720 431.50 / 431.50 177.78 / 609.28 Output Total 500 / 1600 Balance 214.032 / 264.720 431.50 / 431.50 177.78 / 609.28 Weight last 48 hrs Weight 77 kg Weight 77 kg Physical Exam 2 Narrative: General: awake, alert, chronically ill HEENT: PERRLA, pupils bilaterally equal and reactive, dry parched mucous membranes with coated tongue. Chest: Normal vesicular breath sounds, no added sounds, equal good air entry bilaterally CVS: S1-S2 regular, no murmurs, no tachycardia, no gallops, no rubs Abdomen: Soft, nontender, no organomegaly, bowel sounds present Neuro: No focal deficits, no facial deformity, AO x3, power 5/5 in all limbs lines: RIJ placed at admission Urinary Catheter Management: Burroughs: Cath Placed During This Visit: yes Reason for Continuing Indwelling Catheter: Accurate Measurement of Urinary Output in Critically Ill Patients Urinary Catheter Date of Insertion: 03/02/24 Urinary Catheter Time of Insertion: 21:00 Data 03/05/24 05:21 03/05/24 05:21 Micro: Microbiology 03/04/24 05:37 Blood Culture - Preliminary Blood NEGATIVE TO DATE 03/04/24 05:31 Blood Culture - Preliminary Blood NEGATIVE TO DATE A&P Assessment and plan (1) Septic shock: 73-year-old male with lymphoma, currently on chemotherapy with rituximab, 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 Please see admitting hospitalist note with regards to criteria for septic shock. Overnight blood cultures have revealed presence of Streptococcus species, pending further identification. History of strep gallolyticus bacteremia 1 year ago. Currently patient continues to be on Levophed at 12 mics. Continued need for fluids with normal saline at 75 cc an hour at patient is clinically hypovolemic. Discontinue aztreonam. Change antibiotics to meropenem 2 g IV every 12 hours until blood cultures finalized. Continue vancomycin for now until streptococcal susceptibility available. Review of patient's prior notes from [facility] showed that he has tolerated ceftriaxone in the past without issues. He also has a as needed prescription for amoxicillin. Repeat blood cultures with a.m. labs to determine clearance. Given recent history of high-dose steroid use, will place patient on stress dose steroids with hydrocortisone 100 mg IV every 6 hours until clinically improving. 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 CT of the chest abdomen and pelvis without any obvious consolidation or other abdominal source. Patient had several teeth extracted in May of this year and now wears dentures due to suspected source of Streptococcus gallolyticus bacteremia in the past related to poor dentition. He has had several fittings for dentures throughout this year but none recently. There are noted to be some shallow excoriations over his hard palate. He denies any mucositis with recent rituximab use. UA unremarkable. No recent urinary intervention. Last cystoscopy was 1 month ago which appears close a routine procedure for surgical planning for a bladder lift. He has prostatomegaly without any history of prostatitis. He does not have a port, he gets his Rituxan infusions via peripheral line. No replaced cardiac valves, no orthopedic hardware. (3) Non-STEMI (non-ST elevated myocardial infarction): Denies any chest pain currently EKG without acute ST-T wave changes 6-hour troponin delta at nearly 140. Suspect this to be type II MN from septic shock No known history of CAD He has received aspirin 325 mg overnight, will continue with aspirin 81 mg p.o. daily. Patient typically on warfarin, current INR is 3. He has been transitioned to Lovenox 1 mg/kg every 12 hours subcutaneously. Discontinue Plavix for now pending cardiology assessment. Has a history of ? Presumed GI bleeding last year. Will consult cardiology. 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 Protonix 40 mg IV every 12 hours (5) Transaminitis: Elevated AST ALT T. bili. Patient has a history of autoimmune hemolytic anemia. Check LDH, check haptoglobin. High-dose steroids hydrocortisone 100 mg every 6 hours Most recent LFTs from outpatient review were normal. Currently transaminitis may be related to shock liver. Will closely monitor for any changes. Plan DVT prophylaxis: Currently on therapeutic anticoagulation Full code 03/04/2024 Patient continues to be critically ill. Currently on Levophed at 10 mics. White blood cell count worsened at 41,000 today. May potentially also be contributed by high-dose steroids. Tmax 99 Fahrenheit. Overnight events as above. IV fluids discontinued. With elevated WBC count, concern for potential tumor lysis. Check uric acid, phosphorus, ionized calcium levels to further assess. Additionally check ammonia levels, check C. difficile PCR from stool. He is yet to have a bowel movement since admission. INR down to 2.3 today. Will be starting Lovenox 1 mg/kg subcutaneously. Slightly worsening kidney function however urine output remains adequate at over 2500 cc Continuing meropenem and vancomycin for now while pending final identification from blood cultures. Continue stress dose steroids hydrocortisone 100 mg IV every 8 hours. Discontinue Benadryl as needed which was started yesterday as patient appearing to be more lethargic today. Hypomagnesemia replaced. Transaminitis improving. T. bili normal. Haptoglobin normal. Less likely to be hemolysis. awaiting echocardiogram for NSTEMI. 03/05/24: Awake and alert. Ammonia level at ~150 yesterday, overnight had 5 BM post lactulose, ammonia now normalized. improving parameters are reduced pressor requirement with levophed now down to 2 from 12 yesterday. Worsening labs include leukocytosis now at 48K, platelets down to ~75, cr at 1.9. Transaminitis stable. Concern for possible tumor lysis given elevated phos, hypocalcemia, though normal uric acid. Possible TTP , patient is on high dose steroids, pernding peripheral smear to look for schistocytes. 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 Above findings may be related to high dose steroids and post splenectomy state. repeat blood cx negative. d/c vancomycin. continue meropenem. pending susceptibility. continue pressors to maintain MAP > 65. overnight with a fib on amio infusion. continues to have tachycardia, recived digoxin 250 mcg , repeat 125 mcg now. dig level in am . hold lovenox today for falling platelets Attestations 2 Medical Necessity Statement*: needs continued critical care management, need for pressors Critical Care Time: The high probability of a clinically significant, sudden or life threatening deterioration of the patient's [heme,ID,cardiac] system(s) required my full and direct attention, intervention and personal management. The critical care time is as shown. 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
--- NOTE | 2024-03-05 19:48 | PC.NURSE ---
Addendum entered by Mireya Moore RN 03/05/24 19:54: He has picked at his meals. He may have consumed , at most, 50% of each meal. Original Note: Shift summary: Pt rested in bed throughout shift. He remains in A-Fib. Heart rate 135 this am. He is now bouncing between 110-125. Digoxin 125 mcg admin, no change at all in rate or rhythm noted this am. Levophed weaned off, that did decreased heart rate , but only by 10-20 bpm. Amiodarone remains infusing at 0.5mg/min. He is alert and oriented x 4 . He is extremely weak and per him exhausted. Lungs have remained clear throughout this shift. He is using oxygen at 4lpm/NC, no changes in that today. He has had 650ml of lear yellow urinary output. He has been incontinent of very loose stools twice this shift.
--- NOTE | 2024-03-05 20:08 | P.PN_ITS ---
<Statement entered by Addis Tolliver MD - 03/06/24 09:15> Patient was evaluated and cared for in conjunction with an advanced practice practitioner. I personally examined the patient and reviewed the chart and all pertinent data including imaging, telemetry, and laboratory results. I discussed the patient in detail with the advanced practice practitioner. Please see their note for complete H&P testing result and agreed upon plan of care for the patient. Patient appeared to be hypotensive and tachycardic with A-fib He denies any chest pain GENERAL: Patient is lethargic but arousable and oriented x3. HEART: Regular S1 and S2. No murmur, rub or gallop. LUNGS: Clear to auscultate bilaterally. CENTRAL NERVOUS SYSTEM: Grossly nonfocal. EXTREMITIES: Lower extremities with out edema bilaterally. Assessment plan Sepsis Type II non-STEMI Normal left ventricular ejection fraction without significant wall motion abnormality Plan patient can be given IV fluid for hypotension and sepsis, continue antibiotics. IV amiodarone along with digoxin can be used to control the heart rate. Subjective 2 Subjective: Patient white cell continues to rise. At this time, patient is without distress. He did have tachycardia rates in 120s-130s. He was given digoxin IVP, amio bolus with drip. Echo was done that showed normal EF. No signs of fluid overload. Medications: Reviewed: Yes Vitals/I&O/Wt Last Vital Signs Temp 98.3 F 03/05/24 16:45 Pulse 105 H 03/05/24 19:30 Resp 18 03/05/24 19:30 BP 92/73 03/05/24 19:30 Pulse Ox 97 03/05/24 19:30 O2 Del Method Nasal Cannula 03/05/24 19:30 O2 Flow Rate 4 03/05/24 19:30 FiO2 40 03/04/24 06:15 03/05/24 03/05/24 03/05/24 06:59 14:59 22:59 Intake Total 714.032 / 1864.720 431.50 / 431.50 577.78 / 1009.28 Output Total 500 / 1600 650 / 650 Balance 214.032 / 264.720 431.50 / 431.50 -72.22 / 359.28 Weight last 48 hrs Weight 169 lb 12.095 oz Weight 169 lb 12.095 oz Physical Exam 2 Narrative: General: No apparent distress, Muskuloskeletal: Full ROM Lymphatic: no lymphedema noted Respiratory: Normal respiratory effort, left lower lobe diminished right lobe clear, no use of accessory muscles Cardio: No JVD, regular rate, regular rhythm, S1 S2 normal, no murmurs, peripheral pulses 2+ throughout GI: Normal to inspection, nondistended Extremities: Full ROM, normal, normal capillary refill, no cyanosis or edema Neuro: Alert and oriented x4, no focal motor deficits Psych: Affect normal, denies suicidal ideation, mental status grossly normal Skin: No rashes or lesions noted, no wounds Urinary Catheter Management: Burroughs: Cath Placed During This Visit: yes Reason for Continuing Indwelling Catheter: Accurate Measurement of Urinary Output in Critically Ill Patients Urinary Catheter Date of Insertion: 03/02/24 Urinary Catheter Time of Insertion: 21:00 Data 03/05/24 05:21 03/05/24 05:21 Micro: Microbiology 03/04/24 05:37 Blood Culture - Preliminary Blood NEGATIVE TO DATE 03/04/24 05:31 Blood Culture - Preliminary Blood NEGATIVE TO DATE A&P Assessment and plan (1) Non-STEMI (non-ST elevated myocardial infarction): Given not mended risk factor for acute coronary syndrome no prior personal history of heart problem it appeared to me that non-STEMI could be type II and secondary to sepsis Echo with normal EF. Will need repeat complete echo once tachycardia is controlled. He may need another fluid bolus. (2) Septic shock: Continue treatment with antibiotics as recommended Plan As stated above. Attestations 2 Medical Necessity Statement*: Deferred to primary Coding Level of Care Code Acute Code for [facility] Diagnoses Non-STEMI (non-ST elevated myocardial infarction) I21.4 Septic shock A41.9; R65.21
[2024-03-05] MEDS: enoxaparin 80 mg/0.8 mL Syringe 70 MG SUBCUT (23:56)
[2024-03-06] VITALS (73 sets, daily range): BP systolic 89–121; BP diastolic 65–86; PULSE 76–126; RESP 15–26; TEMP 36.3–36.6; O2SAT 92–99
[2024-03-06 05:04] LABS: Eosinophils # 0.1 10^3/uL (0.0-0.8); Eosinophils % 0.1 %; Hematocrit 29.7 % (37-53); Lymphocytes # 0.3 10^3/uL (0.8-4.8); Lymphocytes % 0.8 %; Mean Corpuscular Hemoglobin 31.8 pg (27-33); Mean Corpuscular Volume 99.3 fl (82-101); Mean Platelet Volume 12.6 fL (7.4-10.4); Monocytes # 1.7 10^3/uL (0.2-0.9); Monocytes % 3.8 %; Neutrophils # 38.93 10^3/uL (1.8-7.7); Neutrophils % 88.7 %; Nucleated Red Blood Cells # 0.4 /100WBC; Nucleated Red Blood Cells % 0.9 %; Platelet Count 43 10^3/cmm (157-399); Red Blood Count 2.99 10^6/uL (3.85-5.65); Red Cell Distribution Width 14.4 % (12.1-15.1)
[2024-03-06 05:19] LABS: INR 1.85 (0.8-1.2)
[2024-03-06 05:27] LABS: Alanine Aminotransferase 227 U/L (0-41); Albumin Level 2.5 g/dL (3.5-5.2); Alkaline Phosphatase 107 U/L (40-130); Anion Gap 16.4 (5-19); Aspartate Amino Transferase 176 U/L (0-40); Blood Urea Nitrogen 61 mg/dL (8-23); Carbon Dioxide 19 mmol/L (22-29); Chloride 110 mmol/L (98-107); Creatinine Clr Calc Pharmacy 32.0701; Globulin 2.7 g/dL (1.3-4.6); Glucose 166 mg/dL (65-115); Magnesium 2.3 mg/dL (1.7-2.3); Osmolality Calculated 315 mOsm/kg (285-295); Phosphorus 4.1 mg/dL (2.5-4.5); Potassium 3.4 mmol/L (3.5-5.1); Sodium 142 mmol/L (136-145); Total Bilirubin 0.7 mg/dL (0.15-1.2); Total Protein 5.2 g/dL (6.6-8.7)
[2024-03-06 05:29] LABS: Digoxin 1.2 ng/mL (0.6-1.2)
[2024-03-06 05:39] LABS: Slide Review Slide Review Perform
[2024-03-06 05:40] LABS: White Blood Count 43.88 10^3/uL (3.29-11.43)
[2024-03-06] MEDS: tamsulosin 0.4 mg Capsule PO (08:09)
[2024-03-06] MEDS: aspirin 81 mg EC Tablet PO (08:09)
[2024-03-06] MEDS: lidocaine 5% Patch 1 PATCH TOPICAL ×2 (08:09→21:26)
[2024-03-06] MEDS: pantoprazole 40 mg SDV IVP ×2 (08:09→16:50)
[2024-03-06] MEDS: MEROPENEM 2,000 MG in sodium chloride 0.9% (plus) 50 ML 100 MG IV (10:03)
[2024-03-06] MEDS: enoxaparin 80 mg/0.8 mL Syringe 70 MG SUBCUT (10:05)
[2024-03-06] MEDS: hydrocortisone 100 mg/2 mL SDV IVP (10:05)
--- NOTE | 2024-03-06 12:03 | PC.SOCIAL ---
IMM Update Pg. 2 of IMM updated. Initialed, dated, and timed, copy provided at bedside.
[2024-03-06] MEDS: cefTRIAXone 2,000 mg SDV 2000 MG IVP (14:18)
[2024-03-06] MEDS: sodium chloride 0.9% 1,000 ML 30 ML IV (14:19)
--- NOTE | 2024-03-06 15:15 | P.PN_ITS ---
<Statement entered by Addis Tolliver MD - 03/07/24 22:00> Patient was evaluated and cared for in conjunction with an advanced practice practitioner. I personally examined the patient and reviewed the chart and all pertinent data including imaging, telemetry, and laboratory results. I discussed the patient in detail with the advanced practice practitioner. Please see their note for complete H&P testing result and agreed upon plan of care for the patient. Patient had A-fib with RVR Lethargic but arousable alert, awake and oriented x3. HEART: Regular S1 and S2. No murmur, rub or gallop. LUNGS: Clear to auscultate bilaterally. CENTRAL NERVOUS SYSTEM: Grossly nonfocal. EXTREMITIES: Lower extremities with out edema bilaterally. Assessment and plan Sepsis Type II non-STEMI Atrial fibrillation Continue amiodarone IV fluid can be given since ejection fraction normal IV antibiotic continue IV digoxin can be used Subjective 2 Subjective: Patient doing much better than yesterday. Currently in sinus rhythm with rate controlled after digoxin IVP. Currently on amiodarone drip. Denies any chest pain or shortness of breath at this time. Medications: Reviewed: Yes Vitals/I&O/Wt Last Vital Signs Temp 97.4 F L 03/06/24 09:02 Pulse 80 03/06/24 12:00 Resp 16 03/06/24 12:00 BP 106/80 03/06/24 12:00 Pulse Ox 97 03/06/24 12:00 O2 Del Method Nasal Cannula 03/06/24 08:36 O2 Flow Rate 4 03/06/24 08:36 FiO2 40 03/04/24 06:15 03/06/24 03/06/24 03/06/24 06:59 14:59 22:59 Intake Total 420 / 1741.78 670.3 / 670.3 Output Total 200 / 1050 Balance 220 / 691.78 670.3 / 670.3 Weight last 48 hrs Weight 172 lb Weight 169 lb 12.095 oz Physical Exam 2 Narrative: General: No apparent distress, Muskuloskeletal: Full ROM Lymphatic: no lymphedema noted Respiratory: Normal respiratory effort, left lower lobe diminished right lobe clear, no use of accessory muscles Cardio: No JVD, regular rate, regular rhythm, S1 S2 normal, no murmurs, peripheral pulses 2+ throughout GI: Normal to inspection, nondistended Extremities: Full ROM, normal, normal capillary refill, no cyanosis or edema Neuro: Alert and oriented x4, no focal motor deficits Psych: Affect normal, denies suicidal ideation, mental status grossly normal Skin: No rashes or lesions noted, no wounds Urinary Catheter Management: Burroughs: Cath Placed During This Visit: yes Reason for Continuing Indwelling Catheter: Accurate Measurement of Urinary Output in Critically Ill Patients Urinary Catheter Date of Insertion: 03/02/24 Urinary Catheter Time of Insertion: 21:00 Data 03/06/24 04:35 03/06/24 04:35 Micro: Microbiology 03/02/24 20:09 Blood Culture - Preliminary Blood Streptococcus bovis i#2 A&P Assessment and plan (1) Non-STEMI (non-ST elevated myocardial infarction): Given not mended risk factor for acute coronary syndrome no prior personal history of heart problem it appeared to me that non-STEMI could be type II and secondary to sepsis Complete echo ordered now that heart rate is under control. (2) Septic shock: Continue treatment with antibiotics as recommended (3) Afib: Currently in sinus rhythm rate controlled. Platelets are low so from cardiology standpoint okay to hold Lovenox for now. Recommend transitioning to oral amnio at 400 twice daily x 5 days then decrease to 400 daily for 7 days then 200 daily from then on. Qualifiers: Atrial fibrillation type: paroxysmal Qualified Code(s): I48.0 - Paroxysmal atrial fibrillation Plan As stated above. Attestations 2 Medical Necessity Statement*: Deferred to primary Coding Level of Care Code Acute Code for [facility] Diagnoses Non-STEMI (non-ST elevated myocardial infarction) I21.4 Septic shock A41.9; R65.21 Paroxysmal atrial fibrillation I48.0 Atrial fibrillation type: paroxysmal
--- NOTE | 2024-03-06 16:00 | P.PN_ITS ---
Subjective 2 Subjective: HR is better controlled today, off levophed , more alert Medications: Reviewed: Yes Vitals/I&O/Wt Last Vital Signs Temp 97.8 F 03/07/24 04:00 Pulse 75 03/07/24 04:00 Resp 17 03/07/24 04:00 BP 116/66 03/07/24 04:00 Pulse Ox 97 03/07/24 04:00 O2 Del Method Nasal Cannula 03/07/24 04:00 O2 Flow Rate 4 03/07/24 04:00 FiO2 40 03/04/24 06:15 03/06/24 03/06/24 03/07/24 14:59 22:59 06:59 Intake Total 670.3 / 670.3 90 / 760.3 200 / 960.3 Output Total 850 / 850 300 / 1150 Balance 670.3 / 670.3 -760 / -89.7 -100 / -189.7 Weight last 48 hrs Weight 78.018 kg Physical Exam 2 Narrative: General: No acute distress, AO x3 HEENT: PERRLA, pupils bilaterally equal and reactive, pallors not present Chest: Normal vesicular breath sounds, no added sounds, equal good air entry bilaterally CVS: S1-S2 regular, no murmurs, no tachycardia, no gallops, no rubs Abdomen: Soft, nontender, no organomegaly, bowel sounds present Neuro: No focal deficits, no facial deformity, AO x3, power 5/5 in all limbs Urinary Catheter Management: Burroughs: Cath Placed During This Visit: yes Reason for Continuing Indwelling Catheter: Accurate Measurement of Urinary Output in Critically Ill Patients Urinary Catheter Date of Insertion: 03/02/24 Urinary Catheter Time of Insertion: 21:00 Data 03/06/24 04:35 03/06/24 04:35 Micro: Microbiology 03/02/24 20:09 Blood Culture - Preliminary Blood Streptococcus bovis i#2 A&P Assessment and plan (1) Septic shock: 73-year-old male with lymphoma, currently on chemotherapy with rituximab, 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 Please see admitting hospitalist note with regards to criteria for septic shock. Overnight blood cultures have revealed presence of Streptococcus species, pending further identification. History of strep gallolyticus bacteremia 1 year ago. Currently patient continues to be on Levophed at 12 mics. Continued need for fluids with normal saline at 75 cc an hour at patient is clinically hypovolemic. Discontinue aztreonam. Change antibiotics to meropenem 2 g IV every 12 hours until blood cultures finalized. Continue vancomycin for now until streptococcal susceptibility available. Review of patient's prior notes from [facility] showed that he has tolerated ceftriaxone in the past without issues. He also has a as needed prescription for amoxicillin. Repeat blood cultures with a.m. labs to determine clearance. Given recent history of high-dose steroid use, will place patient on stress dose steroids with hydrocortisone 100 mg IV every 6 hours until clinically improving. 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 CT of the chest abdomen and pelvis without any obvious consolidation or other abdominal source. Patient had several teeth extracted in May of this year and now wears dentures due to suspected source of Streptococcus gallolyticus bacteremia in the past related to poor dentition. He has had several fittings for dentures throughout this year but none recently. There are noted to be some shallow excoriations over his hard palate. He denies any mucositis with recent rituximab use. UA unremarkable. No recent urinary intervention. Last cystoscopy was 1 month ago which appears close a routine procedure for surgical planning for a bladder lift. He has prostatomegaly without any history of prostatitis. He does not have a port, he gets his Rituxan infusions via peripheral line. No replaced cardiac valves, no orthopedic hardware. (3) Non-STEMI (non-ST elevated myocardial infarction): Denies any chest pain currently EKG without acute ST-T wave changes 6-hour troponin delta at nearly 140. Suspect this to be type II [place] from septic shock No known history of CAD He has received aspirin 325 mg overnight, will continue with aspirin 81 mg p.o. daily. Patient typically on warfarin, current INR is 3. He has been transitioned to Lovenox 1 mg/kg every 12 hours subcutaneously. Discontinue Plavix for now pending cardiology assessment. Has a history of ? Presumed GI bleeding last year. Will consult cardiology. 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 Protonix 40 mg IV every 12 hours (5) Transaminitis: Elevated AST ALT T. bili. Patient has a history of autoimmune hemolytic anemia. Check LDH, check haptoglobin. High-dose steroids hydrocortisone 100 mg every 6 hours Most recent LFTs from outpatient review were normal. Currently transaminitis may be related to shock liver. Will closely monitor for any changes. Plan DVT prophylaxis: Currently on therapeutic anticoagulation Full code 03/04/2024 Patient continues to be critically ill. Currently on Levophed at 10 mics. White blood cell count worsened at 41,000 today. May potentially also be contributed by high-dose steroids. Tmax 99 Fahrenheit. Overnight events as above. IV fluids discontinued. With elevated WBC count, concern for potential tumor lysis. Check uric acid, phosphorus, ionized calcium levels to further assess. Additionally check ammonia levels, check C. difficile PCR from stool. He is yet to have a bowel movement since admission. INR down to 2.3 today. Will be starting Lovenox 1 mg/kg subcutaneously. Slightly worsening kidney function however urine output remains adequate at over 2500 cc Continuing meropenem and vancomycin for now while pending final identification from blood cultures. Continue stress dose steroids hydrocortisone 100 mg IV every 8 hours. Discontinue Benadryl as needed which was started yesterday as patient appearing to be more lethargic today. Hypomagnesemia replaced. Transaminitis improving. T. bili normal. Haptoglobin normal. Less likely to be hemolysis. awaiting echocardiogram for NSTEMI. 03/05/24: Awake and alert. Ammonia level at ~150 yesterday, overnight had 5 BM post lactulose, ammonia now normalized. improving parameters are reduced pressor requirement with levophed now down to 2 from 12 yesterday. Worsening labs include leukocytosis now at 48K, platelets down to ~75, cr at 1.9. Transaminitis stable. Concern for possible tumor lysis given elevated phos, hypocalcemia, though normal uric acid. Possible TTP , patient is on high dose steroids, pernding peripheral smear to look for schistocytes. will discuss case with patient's alteration hand today additionally. Above findings may be related to high dose steroids and post splenectomy state. repeat blood cx negative. d/c vancomycin. continue meropenem. pending susceptibility. continue pressors to maintain MAP > 65. overnight with a fib on amio infusion. continues to have tachycardia, recived digoxin 250 mcg , repeat 125 mcg now. dig level in am . hold lovenox today for falling platelets 03/06/2024. more alert, feels slightly better, off levophed today. leukocytosis at 43, platelet dropped to 43K. peripheral smear now available- shows leukamoid reaction, no schistocytes or tear drop cells. Less likely TTP. Discussed the case with oncology SYNTHETIC CHEMIST at [facility] - had requested peripheral smear prior to assess for TTP. Less likely tumor lysis syndrome as patient has possibly low grade lymphoma. HIs biopsy was inconclusive. He is on Rituxan for ITP, not lymphoma. Kidney function with worsening cr at 2.1 today, urine output 1100cc, electrolytes currently WNL. suspect ATN from sepsis. 02 requirement stable at 4lpm today. Start very gentle IVF hydration at 30 cc/hr. Blood cx updated to reflect Strep bovis sensitive to PCN. d/c meropenem. start ceftriaxone 2g iv every 24hrs. Considering recurrent strep bacteremia with no other apparent source, consideration for possible endocarditis. TTE without gross vegetations. MYA deferred due to thrombocytopenia, 02 requirements, unlikely to ticket dispenser changer. Will plan to treat patient with additional 4 weeks of iv Ceftriaxone. Thereafter consideration for chronic suppression given recurrent streptococcal sepsis. OOB today, encourage ambulation. d/c amiodarone gtt. switch to po amiodarone. Attestations 2 Medical Necessity Statement*: transition amio gtt to po amiodarone. narrow abx to ceftriaxone Critical Care Time: The high probability of a clinically significant, sudden or life threatening deterioration of the patient's [ID, cardiac, respiratory] system(s) required my full and direct attention, intervention and personal management. The critical care time is as shown. 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
[2024-03-06] MEDS: amiodarone 200 mg Tablet 400 MG PO (17:13)
[2024-03-07] VITALS (15 sets, daily range): BP systolic 104–138; BP diastolic 62–88; PULSE 67–83; RESP 16–24; TEMP 36.6–36.9; O2SAT 91–98
[2024-03-07 05:48] LABS: INR 1.35 (0.8-1.2)
[2024-03-07] MEDS: amiodarone 200 mg Tablet 400 MG PO ×2 (08:03→17:49)
[2024-03-07] MEDS: predniSONE 20 mg Tablet 40 MG PO (08:03)
[2024-03-07] MEDS: aspirin 81 mg EC Tablet PO (08:04)
[2024-03-07] MEDS: pantoprazole 40 mg SDV IVP ×2 (08:04→17:49)
[2024-03-07] MEDS: tamsulosin 0.4 mg Capsule PO (08:04)
--- NOTE | 2024-03-07 09:37 | PM.PN ---
Subjective Subjective: Leukocytosis improving to 31,000. Platelets down to 30. Patient remains off of Levophed. Creatinine plateaued at 2.0. Medications: Reviewed: Yes Vitals/I&O/Wt Last Vital Signs Temp 97.9 F 03/07/24 06:00 Pulse 68 03/07/24 08:40 Resp 16 03/07/24 08:40 BP 117/62 03/07/24 06:00 Pulse Ox 93 03/07/24 08:40 O2 Del Method Nasal Cannula 03/07/24 08:40 O2 Flow Rate 4 03/07/24 08:40 FiO2 4 03/07/24 06:00 03/06/24 03/07/24 03/07/24 22:59 06:59 14:59 Intake Total 90 / 760.3 200 / 960.3 Output Total 850 / 850 300 / 1150 Balance -760 / -89.7 -100 / -189.7 Weight last 48 hrs Weight 77.836 kg Weight 78.018 kg Physical Exam Narrative: General: No acute distress, AO x3 HEENT: PERRLA, pupils bilaterally equal and reactive, pallors not present Chest: Normal vesicular breath sounds, no added sounds, equal good air entry bilaterally CVS: S1-S2 regular, no murmurs, no tachycardia, no gallops, no rubs Abdomen: Soft, nontender, no organomegaly, bowel sounds present Neuro: No focal deficits, no facial deformity, AO x3, power 5/5 in all limbs Urinary Catheter Management: Burroughs: Cath Placed During This Visit: yes Reason for Continuing Indwelling Catheter: Accurate Measurement of Urinary Output in Critically Ill Patients Urinary Catheter Date of Insertion: 03/02/24 Urinary Catheter Time of Insertion: 21:00 Data 03/08/24 02:48 03/08/24 02:48 Micro: Microbiology 03/02/24 20:09 Blood Culture - Preliminary Blood Streptococcus bovis i#2 A&P Assessment and plan (1) Septic shock: 73-year-old male with lymphoma, currently on chemotherapy with rituximab, 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 Please see admitting hospitalist note with regards to criteria for septic shock. Overnight blood cultures have revealed presence of Streptococcus species, pending further identification. History of strep gallolyticus bacteremia 1 year ago. Currently patient continues to be on Levophed at 12 mics. Continued need for fluids with normal saline at 75 cc an hour at patient is clinically hypovolemic. Discontinue aztreonam. Change antibiotics to meropenem 2 g IV every 12 hours until blood cultures finalized. Continue vancomycin for now until streptococcal susceptibility available. Review of patient's prior notes from [facility] showed that he has tolerated ceftriaxone in the past without issues. He also has a as needed prescription for amoxicillin. Repeat blood cultures with a.m. labs to determine clearance. Given recent history of high-dose steroid use, will place patient on stress dose steroids with hydrocortisone 100 mg IV every 6 hours until clinically improving. 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 CT of the chest abdomen and pelvis without any obvious consolidation or other abdominal source. Patient had several teeth extracted in May of this year and now wears dentures due to suspected source of Streptococcus gallolyticus bacteremia in the past related to poor dentition. He has had several fittings for dentures throughout this year but none recently. There are noted to be some shallow excoriations over his hard palate. He denies any mucositis with recent rituximab use. UA unremarkable. No recent urinary intervention. Last cystoscopy was 1 month ago which appears close a routine procedure for surgical planning for a bladder lift. He has prostatomegaly without any history of prostatitis. He does not have a port, he gets his Rituxan infusions via peripheral line. No replaced cardiac valves, no orthopedic hardware. (3) Non-STEMI (non-ST elevated myocardial infarction): Denies any chest pain currently EKG without acute ST-T wave changes 6-hour troponin delta at nearly 140. Suspect this to be type II TN from septic shock No known history of CAD He has received aspirin 325 mg overnight, will continue with aspirin 81 mg p.o. daily. Patient typically on warfarin, current INR is 3. He has been transitioned to Lovenox 1 mg/kg every 12 hours subcutaneously. Discontinue Plavix for now pending cardiology assessment. Has a history of ? Presumed GI bleeding last year. Will consult cardiology. 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 Protonix 40 mg IV every 12 hours (5) Transaminitis: Elevated AST ALT T. bili. Patient has a history of autoimmune hemolytic anemia. Check LDH, check haptoglobin. High-dose steroids hydrocortisone 100 mg every 6 hours Most recent LFTs from outpatient review were normal. Currently transaminitis may be related to shock liver. Will closely monitor for any changes. (6) Leukemoid reaction: (7) Thrombocytopenia: Plan DVT prophylaxis: Currently on therapeutic anticoagulation Full code 03/04/2024 Patient continues to be critically ill. Currently on Levophed at 10 mics. White blood cell count worsened at 41,000 today. May potentially also be contributed by high-dose steroids. Tmax 99 Fahrenheit. Overnight events as above. IV fluids discontinued. With elevated WBC count, concern for potential tumor lysis. Check uric acid, phosphorus, ionized calcium levels to further assess. Additionally check ammonia levels, check C. difficile PCR from stool. He is yet to have a bowel movement since admission. INR down to 2.3 today. Will be starting Lovenox 1 mg/kg subcutaneously. Slightly worsening kidney function however urine output remains adequate at over 2500 cc Continuing meropenem and vancomycin for now while pending final identification from blood cultures. Continue stress dose steroids hydrocortisone 100 mg IV every 8 hours. Discontinue Benadryl as needed which was started yesterday as patient appearing to be more lethargic today. Hypomagnesemia replaced. Transaminitis improving. T. bili normal. Haptoglobin normal. Less likely to be hemolysis. awaiting echocardiogram for NSTEMI. 03/05/24: Awake and alert. Ammonia level at ~150 yesterday, overnight had 5 BM post lactulose, ammonia now normalized. improving parameters are reduced pressor requirement with levophed now down to 2 from 12 yesterday. Worsening labs include leukocytosis now at 48K, platelets down to ~75, cr at 1.9. Transaminitis stable. Concern for possible tumor lysis given elevated phos, hypocalcemia, though normal uric acid. Possible TTP , patient is on high dose steroids, pernding peripheral smear to look for schistocytes. will discuss case with patient's retirement administrator today additionally. Above findings may be related to high dose steroids and post splenectomy state. repeat blood cx negative. d/c vancomycin. continue meropenem. pending susceptibility. continue pressors to maintain MAP > 65. overnight with a fib on amio infusion. continues to have tachycardia, recived digoxin 250 mcg , repeat 125 mcg now. dig level in am . hold lovenox today for falling platelets 03/06/2024. more alert, feels slightly better, off levophed today. leukocytosis at 43, platelet dropped to 43K. peripheral smear now available- shows leukamoid reaction, no schistocytes or tear drop cells. Less likely TTP. Discussed the case with oncology BEVERAGE INSPECTION MACHINE TENDER at [facility] - had requested peripheral smear prior to assess for TTP. Less likely tumor lysis syndrome as patient has possibly low grade lymphoma. HIs biopsy was inconclusive. He is on Rituxan for ITP, not lymphoma. Kidney function with worsening cr at 2.1 today, urine output 1100cc, electrolytes currently WNL. suspect ATN from sepsis. 02 requirement stable at 4lpm today. Start very gentle IVF hydration at 30 cc/hr. Blood cx updated to reflect Strep bovis sensitive to PCN. d/c meropenem. start ceftriaxone 2g iv every 24hrs. Considering recurrent strep bacteremia with no other apparent source, consideration for possible endocarditis. TTE without gross vegetations. MYA deferred due to thrombocytopenia, 02 requirements, unlikely to exchange mechanic. Will plan to treat patient with additional 4 weeks of iv Ceftriaxone. Thereafter consideration for chronic suppression given recurrent streptococcal sepsis. OOB today, encourage ambulation. d/c amiodarone gtt. switch to po amiodarone. 03/07/2024 Patient had diarrhea overnight. Will recheck C. difficile. He remains off Levophed. Heart rate well-controlled on oral amiodarone. Leukocytosis is trending down. Platelets still falling at 30,000. Continue to hold anticoagulation today. Appears to be slowly improving. Encourage out of bed. PT OT eval and treat. Attestations Medical Necessity Statement*: Continued admission for IV antibiotics, slowly improving. Closely monitor renal function, trend leukocytosis and platelet count. 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
[2024-03-07 09:59] LABS: Hematocrit 32.4 % (37-53); Mean Corpuscular HGB Conc 31.2 g/dL (30-55); Mean Corpuscular Hemoglobin 31.8 pg (27-33); Mean Corpuscular Volume 101.9 fl (82-101); Mean Platelet Volume 14.6 fL (7.4-10.4); Platelet Count 36 10^3/cmm (157-399); Red Blood Count 3.18 10^6/uL (3.85-5.65); Red Cell Distribution Width 14.6 % (12.1-15.1)
[2024-03-07 10:16] LABS: Alanine Aminotransferase 148 U/L (0-41); Albumin Level 2.3 g/dL (3.5-5.2); Alkaline Phosphatase 132 U/L (40-130); Aspartate Amino Transferase 63 U/L (0-40); Blood Urea Nitrogen 60 mg/dL (8-23); Calcium 7.8 mg/dL (8.5-10.5); Carbon Dioxide 21 mmol/L (22-29); Chloride 110 mmol/L (98-107); Creatinine Clr Calc Pharmacy 33.8246; Globulin 2.6 g/dL (1.3-4.6); Glucose 134 mg/dL (65-115); Osmolality Calculated 315 mOsm/kg (285-295); Sodium 143 mmol/L (136-145); Total Bilirubin 0.4 mg/dL (0.15-1.2); Total Protein 4.9 g/dL (6.6-8.7)
[2024-03-07 10:38] LABS: Slide Review Slide Review Perform; White Blood Count 31.74 10^3/uL (3.29-11.43)
[2024-03-07 10:39] LABS: Absolute Neutrophil 27.3 10^3/cmm (1.4-6.5); Absolute Segmented Neutrophil 20.9 10/cmm (1.6-7.1); Band Neutrophils Absolute 6.3 10^3/cmm (0.0-1.2); Eosinophils 0 %; Lymphocytes 9 %; Lymphocytes Absolute 2.9 10^3/cmm (1.2-3.4); Monocytes Absolute 1.6 10^3/cmm (0.1-0.6); Platelet Estimate Decreased (Normal); Segmented Neutrophils 66 %; Total Cells Counted 100 (0-100)
--- NOTE | 2024-03-07 11:01 | USCV_ITS ---
Solis Johnston Age: 73 Gender: M : 1950 Exam Date: 03/07/2024 18:49 Ordering Phys: Hellen Rutherford NP Technologist: MORGAN Exam Location: [facility] Indication: infection of unknown source, afib, patient is minimally responsive in ICU-11 BP: 115 / 74 HR: 69 Rhythm: Sinus Technical Quality: Adequate MEASUREMENTS (Male / Female) Normal Values 2D ECHO LV Diastolic Diameter PLAX 4.6 cm 4.2 - 5.9 / 3.9 - 5.3 cm IVS Diastolic Thickness 1.3 cm 0.6 - 1.0 / 0.6 - 0.9 cm IVS Systolic Thickness 2.0 cm LVPW Diastolic Thickness 1.1 cm 0.6 - 1.0 / 0.6 - 0.9 cm LVPW Systolic Thickness 1.5 cm LVOT Diameter 2.0 cm LV Ejection Fraction 2D Teich 56.1 % LV Ejection Fraction MOD 4C 63.4 % LV Ejection Fraction MOD 2C 50.4 % LV Ejection Fraction 2C AL 49.3 % LA Diameter 4.0 cm Aorta at Sinotubular Diameter 3.0 cm IVC Diameter 1.8 cm M-MODE LA Ao Ratio MM 1.4 AV Cusp Separation MM 1.8 cm DOPPLER AV Peak Velocity 118.0 cm/s LVOT Peak Velocity 82.0 cm/s AV Area Cont Eq vti 2.3 cm squared AV Area Cont Eq pk 2.3 cm squared MV Peak Velocity 128.0 cm/s MV Area PHT 3.2 cm squared Mitral E to A Ratio 2.0 TV Peak Velocity 238.3 cm/s TR Peak Velocity 251.0 cm/s TR Peak Gradient 25.2 mmHg TV Peak E Velocity 60.0 cm/s PV Peak Velocity 97.0 cm/s FINDINGS Left Ventricle LV systolic size is normal in size. LV systolic function is mildly reduced with EF of 45-50%. Mild global hypokinesis. Right Ventricle Normal in size and function Right Atrium Normal in size Left Atrium Normal in size Mitral Valve Structurally normal mitral valve. Moderate eccenteric mitral regurgitation. Aortic Valve Structurally normal aortic valve. Trace aortic regurgitation. Tricuspid Valve Mild tricuspid regurgitation. Pulmonary artery systolic pressure is normal. Pulmonic Valve Trace pulmonic regurgitation. Pericardium Normal Aorta Normal in size IVC Appears to be normal CONCLUSIONS LV systolic function is mildly reduced with EF of 45 to 50%. Moderate eccentric mitral regurgitation. Trace aortic regurgitation. Mild tricuspid regurgitation. Trace pulmonic regurgitation. Pérez Vasquez MD (Electronically Signed) Final Date: 08 March 2024 08:05 S
[2024-03-07 11:48] LABS: C.Diff PCR (Lab) NEGATIVE (Negative)
[2024-03-07] MEDS: lidocaine 1% 5 ML in potassium chloride premix 100 ML 26.25 ML IV (12:29)
[2024-03-07] MEDS: cefTRIAXone 2,000 mg SDV 2000 MG IVP (12:40)
--- NOTE | 2024-03-07 13:31 | XR_ITS ---
WS: [id number] Exam: XR chest 1V portable [id number] Date/Time of Exam: 03/07/2024 2:25 PM Reason For Exam: PICC placement Comparison 03/04/2024. A right-sided PICC line has been placed and appears to end in the right atrium in satisfactory locati on. A RIGHT IJ catheter ends at the region of the cavoatrial junction. Again noted are diffuse inters titial infiltrates and pulmonary vascular congestion showing little change. Fluid in the minor fissur e on the RIGHT. Small bibasal pleural effusions. Mild cardiac enlargement. The mediastinum is normal in contour. Bony structures are intact. Monitoring leads superimpose the chest. XR/XR chest 1V portable [id number] IMPRESSION: 1. Right-sided PICC line ending in the RIGHT atrium in satisfactory position. R IGHT IJ catheter probably ending in the region of the cavoatrial junction. 2. Mild cardiac enlargement with pulmonary vascular congestion and small pleura l effusions. No significant change.
--- NOTE | 2024-03-07 21:00 | P.PN_ITS ---
<Statement entered by Addis Tolliver MD - 03/07/24 21:19> Patient was evaluated and cared for in conjunction with an advanced practice practitioner. I personally examined the patient and reviewed the chart and all pertinent data including imaging, telemetry, and laboratory results. I discussed the patient in detail with the advanced practice practitioner. Please see their note for complete H&P testing result and agreed upon plan of care for the patient. On today's visit heart rate is better controlled and blood pressure has improved GENERAL: Patient is arousable and awake HEART: Regular S1 and S2. No murmur, rub or gallop. LUNGS: Clear to auscultate bilaterally. CENTRAL NERVOUS SYSTEM: Grossly nonfocal. EXTREMITIES: Lower extremities with out edema bilaterally. Assessment and plan Sepsis Atrial fibrillation rapid ventricular sponsor Abnormal cardiac markers type II non-STEMI Now in sinus rhythm continue current management Continue anticoagulation Continue IV antibiotic Subjective 2 Subjective: Patient seen and doing well. No episodes of chest pain. Medications: Reviewed: Yes Vitals/I&O/Wt Last Vital Signs Temp 98.5 F 03/07/24 08:00 Pulse 73 03/07/24 18:00 Resp 20 H 03/07/24 18:00 BP 115/74 03/07/24 18:00 Pulse Ox 98 03/07/24 18:00 O2 Del Method Nasal Cannula 03/07/24 08:40 O2 Flow Rate 4 03/07/24 08:40 FiO2 4 03/07/24 06:00 03/07/24 03/07/24 03/07/24 06:59 14:59 22:59 Intake Total 200 / 960.3 275 / 275 105 / 380 Output Total 300 / 1150 1000 / 1000 Balance -100 / -189.7 275 / 275 -895 / -620 Weight last 48 hrs Weight 171 lb 9.6 oz Weight 172 lb Physical Exam 2 Narrative: General: No apparent distress, Muskuloskeletal: Full ROM Lymphatic: no lymphedema noted Respiratory: Normal respiratory effort, left lower lobe diminished right lobe clear, no use of accessory muscles Cardio: No JVD, regular rate, regular rhythm, S1 S2 normal, no murmurs, peripheral pulses 2+ throughout GI: Normal to inspection, nondistended Extremities: Full ROM, normal, normal capillary refill, no cyanosis or edema Neuro: Alert and oriented x4, no focal motor deficits Psych: Affect normal, denies suicidal ideation, mental status grossly normal Skin: No rashes or lesions noted, no wounds Urinary Catheter Management: Burroughs: Cath Placed During This Visit: yes Reason for Continuing Indwelling Catheter: Accurate Measurement of Urinary Output in Critically Ill Patients Urinary Catheter Date of Insertion: 03/02/24 Urinary Catheter Time of Insertion: 21:00 Data 03/07/24 04:38 03/07/24 04:38 A&P Assessment and plan (1) Non-STEMI (non-ST elevated myocardial infarction): Given not mended risk factor for acute coronary syndrome no prior personal history of heart problem it appeared to me that non-STEMI could be type II and secondary to sepsis (2) Septic shock: Continue treatment with antibiotics as recommended (3) Afib: Currently in sinus rhythm rate controlled. Platelets are low so from cardiology standpoint okay to hold Lovenox for now. Restart as soon as platelets normalize. Recommend transitioning to oral amnio at 400 twice daily x 5 days then decrease to 400 daily for 7 days then 200 daily from then on. Qualifiers: Atrial fibrillation type: paroxysmal Qualified Code(s): I48.0 - Paroxysmal atrial fibrillation Plan As stated above. Attestations 2 Medical Necessity Statement*: Deferred to primary Coding Level of Care Code Acute Code for [facility] Diagnoses Non-STEMI (non-ST elevated myocardial infarction) I21.4 Septic shock A41.9; R65.21 Paroxysmal atrial fibrillation I48.0 Atrial fibrillation type: paroxysmal
[2024-03-08] VITALS (40 sets, daily range): BP systolic 120–161; BP diastolic 67–124; PULSE 60–80; RESP 11–27; TEMP 36.4–36.9; O2SAT 94–100
[2024-03-08 03:25] LABS: Basophils # 0.1 10^3/uL (0.0-0.1); Basophils % 0.6 %; Eosinophils % 0.1 %; Hematocrit 34.6 % (37-53); Lymphocytes # 1.4 10^3/uL (0.8-4.8); Lymphocytes % 7.1 %; Mean Corpuscular HGB Conc 32.1 g/dL (30-55); Mean Corpuscular Hemoglobin 31.4 pg (27-33); Mean Platelet Volume 13.8 fL (7.4-10.4); Monocytes # 1.6 10^3/uL (0.2-0.9); Monocytes % 7.7 %; Neutrophils # 17.07 10^3/uL (1.8-7.7); Neutrophils % 83.9 %; Nucleated Red Blood Cells # 0.3 /100WBC; Nucleated Red Blood Cells % 1.2 %; Platelet Count 61 10^3/cmm (157-399); Red Blood Count 3.53 10^6/uL (3.85-5.65); Red Cell Distribution Width 14.3 % (12.1-15.1); White Blood Count 20.35 10^3/uL (3.29-11.43)
[2024-03-08 03:58] LABS: Alanine Aminotransferase 108 U/L (0-41); Albumin Level 2.5 g/dL (3.5-5.2); Alkaline Phosphatase 120 U/L (40-130); Blood Urea Nitrogen 57 mg/dL (8-23); Carbon Dioxide 22 mmol/L (22-29); Chloride 111 mmol/L (98-107); Creatinine Clr Calc Pharmacy 37.5828; Globulin 2.5 g/dL (1.3-4.6); Glucose 182 mg/dL (65-115); Osmolality Calculated 316 mOsm/kg (285-295); Sodium 143 mmol/L (136-145); Total Bilirubin 0.5 mg/dL (0.15-1.2)
[2024-03-08 04:47] LABS: Aspartate Amino Transferase 41 U/L (0-40)
[2024-03-08] MEDS: pantoprazole 40 mg SDV IVP ×2 (07:40→16:06)
[2024-03-08] MEDS: predniSONE 20 mg Tablet 40 MG PO (08:13)
[2024-03-08] MEDS: amiodarone 200 mg Tablet 400 MG PO ×2 (08:13→18:01)
[2024-03-08] MEDS: aspirin 81 mg EC Tablet PO (08:13)
[2024-03-08] MEDS: tamsulosin 0.4 mg Capsule PO (08:13)
[2024-03-08] MEDS: lidocaine 5% Patch 1 PATCH TOPICAL (08:15)
--- NOTE | 2024-03-08 12:15 | P.PN_ITS ---
Subjective 2 Subjective: Afebrile. Trending towards hypertension now. Remains off of Levophed. Medications: Reviewed: Yes Vitals/I&O/Wt Last Vital Signs Temp 97.5 F L 03/08/24 08:00 Pulse 64 03/08/24 12:00 Resp 20 H 03/08/24 12:00 BP 161/95 03/08/24 12:00 Pulse Ox 97 03/08/24 12:00 O2 Del Method Nasal Cannula 03/08/24 12:00 O2 Flow Rate 3 03/08/24 10:22 FiO2 4 03/07/24 06:00 03/07/24 03/08/24 03/08/24 22:59 06:59 14:59 Intake Total 105 / 380 1000 / 1380 125 / 125 Output Total 1000 / 1000 1000 / 2000 300 / 300 Balance -895 / -620 0 / -620 -175 / -175 Weight last 48 hrs Weight 77.337 kg Weight 77.836 kg Physical Exam 2 Narrative: General: No acute distress, AO x3, extremely deconditioned HEENT: PERRLA, pupils bilaterally equal and reactive, pallors not present Chest: Normal vesicular breath sounds, no added sounds, equal good air entry bilaterally CVS: S1-S2 regular, no murmurs, no tachycardia, no gallops, no rubs Abdomen: Soft, nontender, no organomegaly, bowel sounds present Neuro: No focal deficits, no facial deformity, AO x3, power 5/5 in all limbs Urinary Catheter Management: Burroughs: Cath Placed During This Visit: yes Reason for Continuing Indwelling Catheter: Accurate Measurement of Urinary Output in Critically Ill Patients Urinary Catheter Date of Insertion: 03/02/24 Urinary Catheter Time of Insertion: 21:00 Data 03/08/24 02:48 03/08/24 02:48 A&P Assessment and plan (1) Septic shock: 73-year-old male with lymphoma, currently on chemotherapy with rituximab, 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 Please see admitting hospitalist note with regards to criteria for septic shock. Overnight blood cultures have revealed presence of Streptococcus species, pending further identification. History of strep gallolyticus bacteremia 1 year ago. Currently patient continues to be on Levophed at 12 mics. Continued need for fluids with normal saline at 75 cc an hour at patient is clinically hypovolemic. Discontinue aztreonam. Change antibiotics to meropenem 2 g IV every 12 hours until blood cultures finalized. Continue vancomycin for now until streptococcal susceptibility available. Review of patient's prior notes from [facility] showed that he has tolerated ceftriaxone in the past without issues. He also has a as needed prescription for amoxicillin. Repeat blood cultures with a.m. labs to determine clearance. Given recent history of high-dose steroid use, will place patient on stress dose steroids with hydrocortisone 100 mg IV every 6 hours until clinically improving. 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 CT of the chest abdomen and pelvis without any obvious consolidation or other abdominal source. Patient had several teeth extracted in May of this year and now wears dentures due to suspected source of Streptococcus gallolyticus bacteremia in the past related to poor dentition. He has had several fittings for dentures throughout this year but none recently. There are noted to be some shallow excoriations over his hard palate. He denies any mucositis with recent rituximab use. UA unremarkable. No recent urinary intervention. Last cystoscopy was 1 month ago which appears close a routine procedure for surgical planning for a bladder lift. He has prostatomegaly without any history of prostatitis. He does not have a port, he gets his Rituxan infusions via peripheral line. No replaced cardiac valves, no orthopedic hardware. (3) Non-STEMI (non-ST elevated myocardial infarction): Denies any chest pain currently EKG without acute ST-T wave changes 6-hour troponin delta at nearly 140. Suspect this to be type II ME from septic shock No known history of CAD He has received aspirin 325 mg overnight, will continue with aspirin 81 mg p.o. daily. Patient typically on warfarin, current INR is 3. He has been transitioned to Lovenox 1 mg/kg every 12 hours subcutaneously. Discontinue Plavix for now pending cardiology assessment. Has a history of ? Presumed GI bleeding last year. Will consult cardiology. 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 Protonix 40 mg IV every 12 hours (5) Transaminitis: Elevated AST ALT T. bili. Patient has a history of autoimmune hemolytic anemia. Check LDH, check haptoglobin. High-dose steroids hydrocortisone 100 mg every 6 hours Most recent LFTs from outpatient review were normal. Currently transaminitis may be related to shock liver. Will closely monitor for any changes. (6) Leukemoid reaction: (7) Thrombocytopenia: Plan DVT prophylaxis: Currently on therapeutic anticoagulation Full code 03/04/2024 Patient continues to be critically ill. Currently on Levophed at 10 mics. White blood cell count worsened at 41,000 today. May potentially also be contributed by high-dose steroids. Tmax 99 Fahrenheit. Overnight events as above. IV fluids discontinued. With elevated WBC count, concern for potential tumor lysis. Check uric acid, phosphorus, ionized calcium levels to further assess. Additionally check ammonia levels, check C. difficile PCR from stool. He is yet to have a bowel movement since admission. INR down to 2.3 today. Will be starting Lovenox 1 mg/kg subcutaneously. Slightly worsening kidney function however urine output remains adequate at over 2500 cc Continuing meropenem and vancomycin for now while pending final identification from blood cultures. Continue stress dose steroids hydrocortisone 100 mg IV every 8 hours. Discontinue Benadryl as needed which was started yesterday as patient appearing to be more lethargic today. Hypomagnesemia replaced. Transaminitis improving. T. bili normal. Haptoglobin normal. Less likely to be hemolysis. awaiting echocardiogram for NSTEMI. 03/05/24: Awake and alert. Ammonia level at ~150 yesterday, overnight had 5 BM post lactulose, ammonia now normalized. improving parameters are reduced pressor requirement with levophed now down to 2 from 12 yesterday. Worsening labs include leukocytosis now at 48K, platelets down to ~75, cr at 1.9. Transaminitis stable. Concern for possible tumor lysis given elevated phos, hypocalcemia, though normal uric acid. Possible TTP , patient is on high dose steroids, pernding peripheral smear to look for schistocytes. 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 Above findings may be related to high dose steroids and post splenectomy state. repeat blood cx negative. d/c vancomycin. continue meropenem. pending susceptibility. continue pressors to maintain MAP > 65. overnight with a fib on amio infusion. continues to have tachycardia, recived digoxin 250 mcg , repeat 125 mcg now. dig level in am . hold lovenox today for falling platelets 03/06/2024. more alert, feels slightly better, off levophed today. leukocytosis at 43, platelet dropped to 43K. peripheral smear now available- shows leukamoid reaction, no schistocytes or tear drop cells. Less likely TTP. 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 Less likely tumor lysis syndrome as patient has possibly low grade lymphoma. HIs biopsy was inconclusive. He is on Rituxan for ITP, not lymphoma. Kidney function with worsening cr at 2.1 today, urine output 1100cc, electrolytes currently WNL. suspect ATN from sepsis. 02 requirement stable at 4lpm today. Start very gentle IVF hydration at 30 cc/hr. Blood cx updated to reflect Strep bovis sensitive to PCN. d/c meropenem. start ceftriaxone 2g iv every 24hrs. Considering recurrent strep bacteremia with no other apparent source, consideration for possible endocarditis. TTE without gross vegetations. 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 Will plan to treat patient with additional 4 weeks of iv Ceftriaxone. Thereafter consideration for chronic suppression given recurrent streptococcal sepsis. OOB today, encourage ambulation. d/c amiodarone gtt. switch to po amiodarone. 03/07/2024 Patient had diarrhea overnight. Will recheck C. difficile. He remains off Levophed. Heart rate well-controlled on oral amiodarone. Leukocytosis is trending down. Platelets still falling at 30,000. Continue to hold anticoagulation today. Appears to be slowly improving. Encourage out of bed. PT OT eval and treat. 03/08/2024. PICC line was placed yesterday on 03/07. Right IJ CVC removed on 07 March. Creatinine is improving at 1.8. Net -1 L last 24 hours. Urine output 2300 cc. C. difficile PCR again negative. He had 2 episodes of loose bowel movements overnight. May be antibiotic associated diarrhea. Continue to monitor for now. Leukocytosis down to 20,000 today. Platelet count improving at 61,000. Once closer to 80 -100,000 will resume anticoagulation. For now we will continue only aspirin 81 mg p.o. daily. Continue antibiotic ceftriaxone 2 g IV every 24 hours. LFTs are stable. Patient extremely deconditioned related to his acute illness. Encourage PT OT. Swallow evaluation today in order to advance diet. Incentive spirometer at bedside. Discontinue IV fluids now that kidney function is improving, minimize risk of fluid overload. Heart rate is sinus rhythm, continues to be well-controlled at 64/min. Overall source of strep bovis bacteremia remains unclear. Most likely GI. Patient states he had extensive evaluation in the past year including UGI and LGI endoscopy , had teeth extracted but no overt source was found. CT A/p without any bowel pathology currently. Consideration for chronic suppression to be discussed closer to discharge. Transfer from ICU to [facility]SU. Attestations 2 Medical Necessity Statement*: Continued admission for IV antibiotics, significantly deconditioned, needs therapy evaluations, continued monitoring of thrombocytopenia, leukocytosis. Slowly improving. 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
--- NOTE | 2024-03-08 12:16 | XR_ITS ---
WS: [id number] Exam: XR chest 1V portable [id number] Date/Time of Exam: 03/08/2024 12:18 PM Reason For Exam: assess for pulm edema Comparison 03/07/2024. Mild cardiac enlargement with pulmonary vascular congestion particularly on the RIGHT. There is conso lidating density in the LEFT retrocardiac region suggesting atelectasis and/or infiltrate in the LEFT lower lobe. Slightly increased RIGHT basal pleural effusion. Fluid in the minor fissure on the RIGHT . Right-sided PICC line remains in satisfactory position. RIGHT IJ central line has been removed. The mediastinum is normal in contour. Bony structures are intact. Probable small LEFT pleural effusion. XR/XR chest 1V portable [id number] IMPRESSION: 1. Pulmonary vascular congestion more pronounced on the RIGHT. There is also co nsolidation in the LEFT retrocardiac region suggesting either pneumonia and/or atelectasis. Small bibasal pleural effusions noted with slight increase on the RIGHT. 2. Mild cardiac enlargement unchanged.
[2024-03-08] MEDS: cefTRIAXone 2,000 mg SDV 2000 MG IVP (13:15)
--- NOTE | 2024-03-08 14:47 | PC.SOCIAL ---
IMM Update pg 2 of IMM Updated and reviewed w/ patient. Copy provided and copy dated, initialed and placed in chart.
--- NOTE | 2024-03-08 20:04 | PM.PN ---
Subjective Subjective: Rate controlled, blood pressure normalized and improved Medications: Reviewed: Yes Vitals/I&O/Wt Last Vital Signs Temp 97.5 F L 03/08/24 08:00 Pulse 63 03/08/24 18:30 Resp 11 L 03/08/24 18:30 BP 156/100 03/08/24 18:30 Pulse Ox 100 03/08/24 18:30 O2 Del Method Nasal Cannula 03/08/24 18:30 O2 Flow Rate 4 03/08/24 18:30 FiO2 4 03/07/24 06:00 03/08/24 03/08/24 03/08/24 06:59 14:59 22:59 Intake Total 1000 / 1380 365 / 365 240 / 605 Output Total 1000 / 2000 550 / 550 350 / 900 Balance 0 / -620 -185 / -185 -110 / -295 Weight last 48 hrs Weight 170 lb 8 oz Weight 171 lb 9.6 oz Physical Exam Const: OTHER: GENERAL: Patient is alert, awake and oriented x3. HEART: Regular S1 and S2. No murmur, rub or gallop. LUNGS: Clear to auscultate bilaterally. CENTRAL NERVOUS SYSTEM: Grossly nonfocal. EXTREMITIES: Lower extremities with out edema bilaterally. Urinary Catheter Management: Burroughs: Cath Placed During This Visit: yes Reason for Continuing Indwelling Catheter: Accurate Measurement of Urinary Output in Critically Ill Patients Urinary Catheter Date of Insertion: 03/02/24 Urinary Catheter Time of Insertion: 21:00 Data 03/08/24 02:48 03/08/24 02:48 Micro: Microbiology 03/02/24 20:31 Blood Culture - Final Blood Streptococcus bovis i 03/02/24 20:09 Blood Culture - Final Blood Streptococcus bovis i#2 A&P Assessment and plan (1) Non-STEMI (non-ST elevated myocardial infarction): Patient's type II secondary to sepsis continues to do fine (2) Septic shock: Improved (3) Afib: Sinus rhythm continue to monitor Qualifiers: Atrial fibrillation type: paroxysmal Qualified Code(s): I48.0 - Paroxysmal atrial fibrillation Plan As stated above. Attestations Medical Necessity Statement*: As per medicine Coding Level of Care Code Acute Code for [facility] Diagnoses Non-STEMI (non-ST elevated myocardial infarction) I21.4 Septic shock A41.9; R65.21 Paroxysmal atrial fibrillation I48.0 Atrial fibrillation type: paroxysmal
[2024-03-09] VITALS (22 sets, daily range): BP systolic 130–158; BP diastolic 63–99; PULSE 55–75; RESP 13–24; TEMP 36.1–37.1; O2SAT 92–99
[2024-03-09 04:04] LABS: Basophils # 0.1 10^3/uL (0.0-0.1); Basophils % 0.3 %; Eosinophils % 0.2 %; Hematocrit 35.3 % (37-53); Lymphocytes % 12.4 %; Mean Corpuscular Hemoglobin 31.3 pg (27-33); Mean Corpuscular Volume 97.8 fl (82-101); Mean Platelet Volume 13.8 fL (7.4-10.4); Monocytes # 2.2 10^3/uL (0.2-0.9); Monocytes % 13.5 %; Neutrophils # 11.76 10^3/uL (1.8-7.7); Neutrophils % 72.8 %; Nucleated Red Blood Cells # 0.1 /100WBC; Nucleated Red Blood Cells % 0.6 %; Platelet Count 93 10^3/cmm (157-399); Red Blood Count 3.61 10^6/uL (3.85-5.65); Red Cell Distribution Width 13.9 % (12.1-15.1); White Blood Count 16.16 10^3/uL (3.29-11.43)
[2024-03-09 04:28] LABS: Alanine Aminotransferase 72 U/L (0-41); Albumin Level 2.3 g/dL (3.5-5.2); Alkaline Phosphatase 98 U/L (40-130); Blood Urea Nitrogen 52 mg/dL (8-23); Calcium 7.8 mg/dL (8.5-10.5); Carbon Dioxide 24 mmol/L (22-29); Chloride 108 mmol/L (98-107); Creatinine Clr Calc Pharmacy 48.1921; Globulin 2.7 g/dL (1.3-4.6); Glucose 207 mg/dL (65-115); Osmolality Calculated 310 mOsm/kg (285-295); Sodium 140 mmol/L (136-145); Total Bilirubin 0.4 mg/dL (0.15-1.2)
[2024-03-09 04:35] LABS: Aspartate Amino Transferase 27 U/L (0-40)
[2024-03-09 04:38] LABS: Slide Review Slide Review Perform
[2024-03-09] MEDS: predniSONE 20 mg Tablet 40 MG PO (08:47)
[2024-03-09] MEDS: pantoprazole 40 mg SDV IVP ×2 (08:47→17:40)
[2024-03-09] MEDS: tamsulosin 0.4 mg Capsule PO (08:47)
[2024-03-09] MEDS: amiodarone 200 mg Tablet 400 MG PO (08:47)
[2024-03-09] MEDS: aspirin 81 mg EC Tablet PO (08:47)
--- NOTE | 2024-03-09 11:35 | PC.NURSE ---
Pt reported visual hallucinations stating he was seeing spiders on the wall and floaters reported findings to Dr. Naranjo will continue to closely monitor. Assisted pt back to bed x2 assist after sitting in the chair for 2 hours. Pt tolerated well.
--- NOTE | 2024-03-09 11:37 | P.PN_ITS ---
Subjective 2 Subjective: Patient is feeling better. He has been titrated of supplemental O2. Currently 92% on room air. Chest x-ray taken yesterday shows pulmonary edema right worse than left. He is sitting up in chair today working on his phone. Medications: Reviewed: Yes Vitals/I&O/Wt Last Vital Signs Temp 97.0 F L 03/09/24 08:00 Pulse 73 03/09/24 10:00 Resp 20 H 03/09/24 10:00 BP 144/88 03/09/24 10:00 Pulse Ox 92 03/09/24 10:00 O2 Del Method Room Air 03/09/24 10:00 O2 Flow Rate 4 03/09/24 08:00 FiO2 4 03/07/24 06:00 03/08/24 03/09/24 03/09/24 22:59 06:59 14:59 Intake Total 240 / 605 Output Total 350 / 900 875 / 1775 Balance -110 / -295 -875 / -1170 Weight last 48 hrs Weight 77.337 kg Weight 77.337 kg Physical Exam 2 Narrative: General: No acute distress, AO x3, extremely deconditioned HEENT: PERRLA, pupils bilaterally equal and reactive, pallors not present Chest: Normal vesicular breath sounds, no added sounds, equal good air entry bilaterally CVS: S1-S2 regular, no murmurs, no tachycardia, no gallops, no rubs Abdomen: Soft, nontender, no organomegaly, bowel sounds present Neuro: No focal deficits, no facial deformity, AO x3, power 5/5 in all limbs Urinary Catheter Management: Burroughs: Cath Placed During This Visit: yes Reason for Continuing Indwelling Catheter: Accurate Measurement of Urinary Output in Critically Ill Patients Urinary Catheter Date of Insertion: 03/02/24 Urinary Catheter Time of Insertion: 21:00 Data 03/09/24 03:44 03/09/24 03:44 Micro: Microbiology 03/04/24 05:37 Blood Culture - Final Blood NO GROWTH AFTER 5 DAYS 03/04/24 05:31 Blood Culture - Final Blood NO GROWTH AFTER 5 DAYS 03/02/24 20:31 Blood Culture - Final Blood Streptococcus bovis i 03/02/24 20:09 Blood Culture - Final Blood Streptococcus bovis i#2 A&P Assessment and plan (1) Septic shock: 73-year-old male with lymphoma, currently on chemotherapy with rituximab, 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 Please see admitting hospitalist note with regards to criteria for septic shock. Overnight blood cultures have revealed presence of Streptococcus species, pending further identification. History of strep gallolyticus bacteremia 1 year ago. Currently patient continues to be on Levophed at 12 mics. Continued need for fluids with normal saline at 75 cc an hour at patient is clinically hypovolemic. Discontinue aztreonam. Change antibiotics to meropenem 2 g IV every 12 hours until blood cultures finalized. Continue vancomycin for now until streptococcal susceptibility available. Review of patient's prior notes from [facility] showed that he has tolerated ceftriaxone in the past without issues. He also has a as needed prescription for amoxicillin. Repeat blood cultures with a.m. labs to determine clearance. Given recent history of high-dose steroid use, will place patient on stress dose steroids with hydrocortisone 100 mg IV every 6 hours until clinically improving. 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 CT of the chest abdomen and pelvis without any obvious consolidation or other abdominal source. Patient had several teeth extracted in May of this year and now wears dentures due to suspected source of Streptococcus gallolyticus bacteremia in the past related to poor dentition. He has had several fittings for dentures throughout this year but none recently. There are noted to be some shallow excoriations over his hard palate. He denies any mucositis with recent rituximab use. UA unremarkable. No recent urinary intervention. Last cystoscopy was 1 month ago which appears close a routine procedure for surgical planning for a bladder lift. He has prostatomegaly without any history of prostatitis. He does not have a port, he gets his Rituxan infusions via peripheral line. No replaced cardiac valves, no orthopedic hardware. (3) Non-STEMI (non-ST elevated myocardial infarction): Denies any chest pain currently EKG without acute ST-T wave changes 6-hour troponin delta at nearly 140. Suspect this to be type II OK from septic shock No known history of CAD He has received aspirin 325 mg overnight, will continue with aspirin 81 mg p.o. daily. Patient typically on warfarin, current INR is 3. He has been transitioned to Lovenox 1 mg/kg every 12 hours subcutaneously. Discontinue Plavix for now pending cardiology assessment. Has a history of ? Presumed GI bleeding last year. Will consult cardiology. 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 Protonix 40 mg IV every 12 hours (5) Transaminitis: Elevated AST ALT T. bili. Patient has a history of autoimmune hemolytic anemia. Check LDH, check haptoglobin. High-dose steroids hydrocortisone 100 mg every 6 hours Most recent LFTs from outpatient review were normal. Currently transaminitis may be related to shock liver. Will closely monitor for any changes. (6) Leukemoid reaction: (7) Thrombocytopenia: Plan DVT prophylaxis: Currently on therapeutic anticoagulation Full code 03/04/2024 Patient continues to be critically ill. Currently on Levophed at 10 mics. White blood cell count worsened at 41,000 today. May potentially also be contributed by high-dose steroids. Tmax 99 Fahrenheit. Overnight events as above. IV fluids discontinued. With elevated WBC count, concern for potential tumor lysis. Check uric acid, phosphorus, ionized calcium levels to further assess. Additionally check ammonia levels, check C. difficile PCR from stool. He is yet to have a bowel movement since admission. INR down to 2.3 today. Will be starting Lovenox 1 mg/kg subcutaneously. Slightly worsening kidney function however urine output remains adequate at over 2500 cc Continuing meropenem and vancomycin for now while pending final identification from blood cultures. Continue stress dose steroids hydrocortisone 100 mg IV every 8 hours. Discontinue Benadryl as needed which was started yesterday as patient appearing to be more lethargic today. Hypomagnesemia replaced. Transaminitis improving. T. bili normal. Haptoglobin normal. Less likely to be hemolysis. awaiting echocardiogram for NSTEMI. 03/05/24: Awake and alert. Ammonia level at ~150 yesterday, overnight had 5 BM post lactulose, ammonia now normalized. improving parameters are reduced pressor requirement with levophed now down to 2 from 12 yesterday. Worsening labs include leukocytosis now at 48K, platelets down to ~75, cr at 1.9. Transaminitis stable. Concern for possible tumor lysis given elevated phos, hypocalcemia, though normal uric acid. Possible TTP , patient is on high dose steroids, pernding peripheral smear to look for schistocytes. 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 Above findings may be related to high dose steroids and post splenectomy state. repeat blood cx negative. d/c vancomycin. continue meropenem. pending susceptibility. continue pressors to maintain MAP > 65. overnight with a fib on amio infusion. continues to have tachycardia, recived digoxin 250 mcg , repeat 125 mcg now. dig level in am . hold lovenox today for falling platelets 03/06/2024. more alert, feels slightly better, off levophed today. leukocytosis at 43, platelet dropped to 43K. peripheral smear now available- shows leukamoid reaction, no schistocytes or tear drop cells. Less likely TTP. Discussed the case with oncology [facility]PER at [facility] - had requested peripheral smear prior to assess for TTP. Less likely tumor lysis syndrome as patient has possibly low grade lymphoma. HIs biopsy was inconclusive. He is on Rituxan for ITP, not lymphoma. Kidney function with worsening cr at 2.1 today, urine output 1100cc, electrolytes currently WNL. suspect ATN from sepsis. 02 requirement stable at 4lpm today. Start very gentle IVF hydration at 30 cc/hr. Blood cx updated to reflect Strep bovis sensitive to PCN. d/c meropenem. start ceftriaxone 2g iv every 24hrs. Considering recurrent strep bacteremia with no other apparent source, consideration for possible endocarditis. TTE without gross vegetations. MYA deferred due to thrombocytopenia, 02 requirements, unlikely to change management facilitator. Will plan to treat patient with additional 4 weeks of iv Ceftriaxone. Thereafter consideration for chronic suppression given recurrent streptococcal sepsis. OOB today, encourage ambulation. d/c amiodarone gtt. switch to po amiodarone. 03/07/2024 Patient had diarrhea overnight. Will recheck C. difficile. He remains off Levophed. Heart rate well-controlled on oral amiodarone. Leukocytosis is trending down. Platelets still falling at 30,000. Continue to hold anticoagulation today. Appears to be slowly improving. Encourage out of bed. PT OT eval and treat. 03/08/2024. PICC line was placed yesterday on 03/07. Right IJ CVC removed on 07 March. Creatinine is improving at 1.8. Net -1 L last 24 hours. Urine output 2300 cc. C. difficile PCR again negative. He had 2 episodes of loose bowel movements overnight. May be antibiotic associated diarrhea. Continue to monitor for now. Leukocytosis down to 20,000 today. Platelet count improving at 61,000. Once closer to 80 -100,000 will resume anticoagulation. For now we will continue only aspirin 81 mg p.o. daily. Continue antibiotic ceftriaxone 2 g IV every 24 hours. LFTs are stable. Patient extremely deconditioned related to his acute illness. Encourage PT OT. Swallow evaluation today in order to advance diet. Incentive spirometer at bedside. Discontinue IV fluids now that kidney function is improving, minimize risk of fluid overload. Heart rate is sinus rhythm, continues to be well-controlled at 64/min. Overall source of strep bovis bacteremia remains unclear. Most likely GI. Patient states he had extensive evaluation in the past year including UGI and LGI endoscopy , had teeth extracted but no overt source was found. CT A/p without any bowel pathology currently. Consideration for chronic suppression to be discussed closer to discharge. Transfer from ICU to [facility]. 03/09/2024 Patient is symptomatically better. Saturating 92% on room air. Chest x-ray showed bilateral pulmonary edema right worse than left. Lasix 20 mg IV x 1 today. Closely monitor blood pressure and kidney function with the Lasix. Creatinine improving at 1.4 today. Good urine output. Leukocytosis now down to 16,000. Platelet count improving at 93. Will resume home dose of warfarin today with target INR of 2-3. Continuing steroids prednisone 40 mg p.o. daily, will start titrating tomorrow. Change amiodarone 400 mg p.o. twice daily to metoprolol 25 mg p.o. twice daily. Patient has history of deranged LFTs in the past therefore ideally would want to switch from amiodarone to beta-blockers. Transaminitis is currently improving. Was likely related to hypotension. Currently no beds in [facility]SU therefore patient continuing to be physically located in the ICU in a stepdown bed. Continue aspirin 81 mg p.o. daily. Continue ceftriaxone 2 g IV every 24 hours. Total course to be 4 weeks. Worked with physical therapy today, noted to be extremely deconditioned. He exhibits decreased endurance, decreased strength, poor safety awareness. Likely to benefit from ongoing physical therapy. Does not wish to go to SNF, we will attempt to arrange therapy services at home. Reported visual floaters, feels as if he sees spiders, no visual compromise. no focal motor defictis, suspect related to ICU delirium, criticall illness and high dose steroids. will monitor for now. he is alert awake and oriented otherwise. Attestations 2 Medical Necessity Statement*: continued admission for iv abx, change in medications as noted above, resume a/c, monitor platelets with a/c, monitor cr with iv diuresis today, case management working to arrange home iv abx. 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
[2024-03-09] MEDS: FUROsemide 10 mg/mL SDV 2mL 20 MG IVP (12:11)
[2024-03-09] MEDS: cefTRIAXone 2,000 mg SDV 2000 MG IVP (14:12)
[2024-03-09] MEDS: warfarin 5 mg Tablet PO (14:12)
--- NOTE | 2024-03-09 16:37 | P.PN_ITS ---
Subjective 2 Subjective: Remain stable in sinus rhythm. Medications: Reviewed: Yes Vitals/I&O/Wt Last Vital Signs Temp 97.0 F L 03/09/24 08:00 Pulse 72 03/09/24 14:00 Resp 16 03/09/24 12:00 BP 158/99 03/09/24 12:00 Pulse Ox 94 03/09/24 12:00 O2 Del Method Room Air 03/09/24 12:00 O2 Flow Rate 4 03/09/24 08:00 FiO2 4 03/07/24 06:00 03/09/24 03/09/24 03/09/24 06:59 14:59 22:59 Intake Total 240 / 240 Output Total 875 / 1775 Balance -875 / -1170 240 / 240 Weight last 48 hrs Weight 170 lb 8 oz Weight 170 lb 8 oz Physical Exam 2 Const: OTHER: GENERAL: Patient is alert, awake and oriented x3. HEART: Regular S1 and S2. No murmur, rub or gallop. LUNGS: Clear to auscultate bilaterally. CENTRAL NERVOUS SYSTEM: Grossly nonfocal. EXTREMITIES: Lower extremities with out edema bilaterally. Urinary Catheter Management: Burroughs: Cath Placed During This Visit: yes Reason for Continuing Indwelling Catheter: Accurate Measurement of Urinary Output in Critically Ill Patients Urinary Catheter Date of Insertion: 03/02/24 Urinary Catheter Time of Insertion: 21:00 Data 03/09/24 03:44 03/09/24 03:44 Micro: Microbiology 03/04/24 05:37 Blood Culture - Final Blood NO GROWTH AFTER 5 DAYS 03/04/24 05:31 Blood Culture - Final Blood NO GROWTH AFTER 5 DAYS 03/02/24 20:31 Blood Culture - Final Blood Streptococcus bovis i 03/02/24 20:09 Blood Culture - Final Blood Streptococcus bovis i#2 A&P Assessment and plan (1) Non-STEMI (non-ST elevated myocardial infarction): Patient's type II secondary to sepsis continues management no further testing needed at this point (2) Septic shock: Improved (3) Afib: Remained in sinus rhythm continue beta-angie and anticoagulation Qualifiers: Atrial fibrillation type: paroxysmal Qualified Code(s): I48.0 - Paroxysmal atrial fibrillation Plan As stated above. Attestations 2 Medical Necessity Statement*: At this point we will sign off continue as per recommendation by medicine Coding Level of Care Code Acute Code for Chg Fwd Diagnoses Non-STEMI (non-ST elevated myocardial infarction) I21.4 Septic shock A41.9; R65.21 Paroxysmal atrial fibrillation I48.0 Atrial fibrillation type: paroxysmal
[2024-03-09] MEDS: lactobacillus 1 Tablet 1 TAB PO (17:40)
[2024-03-09] MEDS: metoprolol tartrate 25 mg Tablet PO (20:07)
[2024-03-10] VITALS (13 sets, daily range): BP systolic 122–143; BP diastolic 75–81; PULSE 54–71; RESP 12–26; TEMP 36.6–36.7; O2SAT 93–97
--- NOTE | 2024-03-10 04:44 | PC.NURSE ---
Report called to Chloe MILES, patient transferred to [facility] 105 at [id number]
[2024-03-10 06:14] LABS: Basophils % 0.3 %; Eosinophils # 0.1 10^3/uL (0.0-0.8); Eosinophils % 0.5 %; Hematocrit 34.8 % (37-53); Lymphocytes # 1.9 10^3/uL (0.8-4.8); Lymphocytes % 13.7 %; Mean Corpuscular HGB Conc 33.3 g/dL (30-55); Mean Corpuscular Hemoglobin 31.6 pg (27-33); Mean Corpuscular Volume 94.8 fl (82-101); Mean Platelet Volume 12.6 fL (7.4-10.4); Monocytes # 1.6 10^3/uL (0.2-0.9); Monocytes % 11.6 %; Neutrophils # 10.16 10^3/uL (1.8-7.7); Nucleated Red Blood Cells # 0.1 /100WBC; Nucleated Red Blood Cells % 0.4 %; Platelet Count 154 10^3/cmm (157-399); Red Blood Count 3.67 10^6/uL (3.85-5.65); Red Cell Distribution Width 13.8 % (12.1-15.1)
[2024-03-10 06:32] LABS: Alanine Aminotransferase 53 U/L (0-41); Albumin Level 2.4 g/dL (3.5-5.2); Alkaline Phosphatase 97 U/L (40-130); Aspartate Amino Transferase 19 U/L (0-40); Blood Urea Nitrogen 48 mg/dL (8-23); Calcium 7.9 mg/dL (8.5-10.5); Carbon Dioxide 24 mmol/L (22-29); Chloride 107 mmol/L (98-107); Creatinine Clr Calc Pharmacy 44.9793; Globulin 2.4 g/dL (1.3-4.6); Glucose 212 mg/dL (65-115); Osmolality Calculated 313 mOsm/kg (285-295); Sodium 142 mmol/L (136-145); Total Bilirubin 0.5 mg/dL (0.15-1.2); Total Protein 4.8 g/dL (6.6-8.7)
[2024-03-10 06:33] LABS: Anion Gap 14.6 (5-19); Potassium 3.6 mmol/L (3.5-5.1)
[2024-03-10] MEDS: metoprolol tartrate 25 mg Tablet PO (08:49)
[2024-03-10] MEDS: aspirin 81 mg EC Tablet PO (08:49)
[2024-03-10] MEDS: tamsulosin 0.4 mg Capsule PO (08:49)
[2024-03-10] MEDS: pantoprazole 40 mg SDV IVP (08:49)
[2024-03-10] MEDS: lactobacillus 1 Tablet 1 TAB PO ×2 (08:49→17:45)
[2024-03-10] MEDS: predniSONE 20 mg Tablet 40 MG PO (08:49)
--- NOTE | 2024-03-10 15:36 | PM.PN ---
Subjective Subjective: Continues to feel better. Afebrile, hemodynamically stable. Overnight heart rate in the 50s. Medications: Reviewed: Yes Vitals/I&O/Wt Last Vital Signs Temp 97.8 F 03/10/24 12:00 Pulse 58 L 03/10/24 12:00 Resp 22 H 03/10/24 12:00 BP 130/79 03/10/24 12:00 Pulse Ox 93 03/10/24 12:00 O2 Del Method Room Air 03/10/24 12:00 O2 Flow Rate 4 03/09/24 08:00 FiO2 4 03/07/24 06:00 03/10/24 03/10/24 03/10/24 06:59 14:59 22:59 Output Total 200 / 2700 800 / 800 Balance -200 / -2460 -800 / -800 Weight last 48 hrs Weight 77.337 kg Weight 77.337 kg Physical Exam Narrative: General: No acute distress, AO x3 HEENT: PERRLA, pupils bilaterally equal and reactive, pallors not present Chest: Normal vesicular breath sounds, no added sounds, equal good air entry bilaterally CVS: S1-S2 regular, no murmurs, no tachycardia, no gallops, no rubs Abdomen: Soft, nontender, no organomegaly, bowel sounds present Neuro: No focal deficits, no facial deformity, AO x3, power 5/5 in all limbs Urinary Catheter Management: Burroughs: Cath Placed During This Visit: yes, but has since been removed by the nurse Reason for Continuing Indwelling Catheter: Decision to DC Catheter Urinary Catheter Date of Insertion: 03/02/24 Urinary Catheter Time of Insertion: 21:00 Date Urinary Catheter Removed: 03/09/24 Time Urinary Catheter Discontinued: 18:00 Data 03/10/24 06:02 03/10/24 06:02 A&P Assessment and plan (1) Septic shock: 73-year-old male with lymphoma, currently on chemotherapy with rituximab, 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 Please see admitting hospitalist note with regards to criteria for septic shock. Overnight blood cultures have revealed presence of Streptococcus species, pending further identification. History of strep gallolyticus bacteremia 1 year ago. Currently patient continues to be on Levophed at 12 mics. Continued need for fluids with normal saline at 75 cc an hour at patient is clinically hypovolemic. Discontinue aztreonam. Change antibiotics to meropenem 2 g IV every 12 hours until blood cultures finalized. Continue vancomycin for now until streptococcal susceptibility available. Review of patient's prior notes from [facility] showed that he has tolerated ceftriaxone in the past without issues. He also has a as needed prescription for amoxicillin. Repeat blood cultures with a.m. labs to determine clearance. Given recent history of high-dose steroid use, will place patient on stress dose steroids with hydrocortisone 100 mg IV every 6 hours until clinically improving. 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 CT of the chest abdomen and pelvis without any obvious consolidation or other abdominal source. Patient had several teeth extracted in May of this year and now wears dentures due to suspected source of Streptococcus gallolyticus bacteremia in the past related to poor dentition. He has had several fittings for dentures throughout this year but none recently. There are noted to be some shallow excoriations over his hard palate. He denies any mucositis with recent rituximab use. UA unremarkable. No recent urinary intervention. Last cystoscopy was 1 month ago which appears close a routine procedure for surgical planning for a bladder lift. He has prostatomegaly without any history of prostatitis. He does not have a port, he gets his Rituxan infusions via peripheral line. No replaced cardiac valves, no orthopedic hardware. (3) Non-STEMI (non-ST elevated myocardial infarction): Denies any chest pain currently EKG without acute ST-T wave changes 6-hour troponin delta at nearly 140. Suspect this to be type II AR from septic shock No known history of CAD He has received aspirin 325 mg overnight, will continue with aspirin 81 mg p.o. daily. Patient typically on warfarin, current INR is 3. He has been transitioned to Lovenox 1 mg/kg every 12 hours subcutaneously. Discontinue Plavix for now pending cardiology assessment. Has a history of ? Presumed GI bleeding last year. Will consult cardiology. 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 Protonix 40 mg IV every 12 hours (5) Transaminitis: Elevated AST ALT T. bili. Patient has a history of autoimmune hemolytic anemia. Check LDH, check haptoglobin. High-dose steroids hydrocortisone 100 mg every 6 hours Most recent LFTs from outpatient review were normal. Currently transaminitis may be related to shock liver. Will closely monitor for any changes. (6) Leukemoid reaction: (7) Thrombocytopenia: Plan DVT prophylaxis: Currently on therapeutic anticoagulation Full code 03/04/2024 Patient continues to be critically ill. Currently on Levophed at 10 mics. White blood cell count worsened at 41,000 today. May potentially also be contributed by high-dose steroids. Tmax 99 Fahrenheit. Overnight events as above. IV fluids discontinued. With elevated WBC count, concern for potential tumor lysis. Check uric acid, phosphorus, ionized calcium levels to further assess. Additionally check ammonia levels, check C. difficile PCR from stool. He is yet to have a bowel movement since admission. INR down to 2.3 today. Will be starting Lovenox 1 mg/kg subcutaneously. Slightly worsening kidney function however urine output remains adequate at over 2500 cc Continuing meropenem and vancomycin for now while pending final identification from blood cultures. Continue stress dose steroids hydrocortisone 100 mg IV every 8 hours. Discontinue Benadryl as needed which was started yesterday as patient appearing to be more lethargic today. Hypomagnesemia replaced. Transaminitis improving. T. bili normal. Haptoglobin normal. Less likely to be hemolysis. awaiting echocardiogram for NSTEMI. 03/05/24: Awake and alert. Ammonia level at ~150 yesterday, overnight had 5 BM post lactulose, ammonia now normalized. improving parameters are reduced pressor requirement with levophed now down to 2 from 12 yesterday. Worsening labs include leukocytosis now at 48K, platelets down to ~75, cr at 1.9. Transaminitis stable. Concern for possible tumor lysis given elevated phos, hypocalcemia, though normal uric acid. Possible TTP , patient is on high dose steroids, pernding peripheral smear to look for schistocytes. 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 Above findings may be related to high dose steroids and post splenectomy state. repeat blood cx negative. d/c vancomycin. continue meropenem. pending susceptibility. continue pressors to maintain MAP > 65. overnight with a fib on amio infusion. continues to have tachycardia, recived digoxin 250 mcg , repeat 125 mcg now. dig level in am . hold lovenox today for falling platelets 03/06/2024. more alert, feels slightly better, off levophed today. leukocytosis at 43, platelet dropped to 43K. peripheral smear now available- shows leukamoid reaction, no schistocytes or tear drop cells. Less likely TTP. 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 - had requested peripheral smear prior to assess for TTP. Less likely tumor lysis syndrome as patient has possibly low grade lymphoma. HIs biopsy was inconclusive. He is on Rituxan for ITP, not lymphoma. Kidney function with worsening cr at 2.1 today, urine output 1100cc, electrolytes currently WNL. suspect ATN from sepsis. 02 requirement stable at 4lpm today. Start very gentle IVF hydration at 30 cc/hr. Blood cx updated to reflect Strep bovis sensitive to PCN. d/c meropenem. start ceftriaxone 2g iv every 24hrs. Considering recurrent strep bacteremia with no other apparent source, consideration for possible endocarditis. TTE without gross vegetations. MYA deferred due to thrombocytopenia, 02 requirements, unlikely to address change clerk. Will plan to treat patient with additional 4 weeks of iv Ceftriaxone. Thereafter consideration for chronic suppression given recurrent streptococcal sepsis. OOB today, encourage ambulation. d/c amiodarone gtt. switch to po amiodarone. 03/07/2024 Patient had diarrhea overnight. Will recheck C. difficile. He remains off Levophed. Heart rate well-controlled on oral amiodarone. Leukocytosis is trending down. Platelets still falling at 30,000. Continue to hold anticoagulation today. Appears to be slowly improving. Encourage out of bed. PT OT eval and treat. 03/08/2024. PICC line was placed yesterday on 03/07. Right IJ CVC removed on 07 March. Creatinine is improving at 1.8. Net -1 L last 24 hours. Urine output 2300 cc. C. difficile PCR again negative. He had 2 episodes of loose bowel movements overnight. May be antibiotic associated diarrhea. Continue to monitor for now. Leukocytosis down to 20,000 today. Platelet count improving at 61,000. Once closer to 80 -100,000 will resume anticoagulation. For now we will continue only aspirin 81 mg p.o. daily. Continue antibiotic ceftriaxone 2 g IV every 24 hours. LFTs are stable. Patient extremely deconditioned related to his acute illness. Encourage PT OT. Swallow evaluation today in order to advance diet. Incentive spirometer at bedside. Discontinue IV fluids now that kidney function is improving, minimize risk of fluid overload. Heart rate is sinus rhythm, continues to be well-controlled at 64/min. Overall source of strep bovis bacteremia remains unclear. Most likely GI. Patient states he had extensive evaluation in the past year including UGI and LGI endoscopy , had teeth extracted but no overt source was found. CT A/p without any bowel pathology currently. Consideration for chronic suppression to be discussed closer to discharge. Transfer from ICU to [facility]. 03/09/2024 Patient is symptomatically better. Saturating 92% on room air. Chest x-ray showed bilateral pulmonary edema right worse than left. Lasix 20 mg IV x 1 today. Closely monitor blood pressure and kidney function with the Lasix. Creatinine improving at 1.4 today. Good urine output. Leukocytosis now down to 16,000. Platelet count improving at 93. Will resume home dose of warfarin today with target INR of 2-3. Continuing steroids prednisone 40 mg p.o. daily, will start titrating tomorrow. Change amiodarone 400 mg p.o. twice daily to metoprolol 25 mg p.o. twice daily. Patient has history of deranged LFTs in the past therefore ideally would want to switch from amiodarone to beta-blockers. Transaminitis is currently improving. Was likely related to hypotension. Currently no beds in [facility] therefore patient continuing to be physically located in the ICU in a stepdown bed. Continue aspirin 81 mg p.o. daily. Continue ceftriaxone 2 g IV every 24 hours. Total course to be 4 weeks. Worked with physical therapy today, noted to be extremely deconditioned. He exhibits decreased endurance, decreased strength, poor safety awareness. Likely to benefit from ongoing physical therapy. Does not wish to go to SNF, we will attempt to arrange therapy services at home. Reported visual floaters, feels as if he sees spiders, no visual compromise. no focal motor defictis, suspect related to ICU delirium, criticall illness and high dose steroids. will monitor for now. he is alert awake and oriented otherwise. 03/10/2024. Continues to be better. Remains on room air. Noted to be bradycardic with heart rate in the 50s overnight. Reduce dose of metoprolol to 12.5 mg p.o. twice daily. He is euvolemic today after having received Lasix yesterday. Kidney function is stable at 1.5. Urine output 3500 cc. Continue ceftriaxone 2 g IV every 24 hours. Patient planned to be discharged over the next 24 hours once his home antibiotics get delivered. Would benefit from ongoing physical therapy at home. Reduce prednisone to 20 mg p.o. daily. Diarrhea completely resolved now. Floaters are better. No visual disturbances. Attestations Medical Necessity Statement*: continue iv abx, beta blockers dose adjusted, anticipate discharge in upcoming 24 hrs Coding Level of Care Code Acute Code for [facility] Fwd Diagnoses Septic shock A41.9; R65.21 Disease due to invasive Streptococcus species B95.5 Non-STEMI (non-ST elevated myocardial infarction) I21.4 Pollock esophagus K22.70 Transaminitis R74.01 Leukemoid reaction D72.823 Thrombocytopenia D69.6
[2024-03-10] MEDS: warfarin 5 mg Tablet PO (15:38)
[2024-03-10] MEDS: cefTRIAXone 2,000 mg SDV 2000 MG IVP (15:39)
[2024-03-10] MEDS: warfarin 2.5 mg Tablet PO (17:45)
[2024-03-10] MEDS: pantoprazole DR 40 mg Tablet PO (17:45)
[2024-03-10] MEDS: metoprolol tartrate 25 mg Tablet 12.5 MG PO (19:54)
[2024-03-11] VITALS (10 sets, daily range): BP systolic 133–161; BP diastolic 76–83; PULSE 58–64; RESP 15–24; TEMP 36.5–37; O2SAT 87–97
[2024-03-11 03:46] LABS: Basophils % 0.2 %; Eosinophils % 0.2 %; Hematocrit 33.3 % (37-53); Lymphocytes # 1.7 10^3/uL (0.8-4.8); Lymphocytes % 14.4 %; Mean Corpuscular Hemoglobin 31.3 pg (27-33); Mean Corpuscular Volume 94.6 fl (82-101); Monocytes # 1.1 10^3/uL (0.2-0.9); Monocytes % 9.4 %; Neutrophils # 8.94 10^3/uL (1.8-7.7); Neutrophils % 74.9 %; Nucleated Red Blood Cells % 0.3 %; Platelet Count 250 10^3/cmm (157-399); Red Blood Count 3.52 10^6/uL (3.85-5.65); Red Cell Distribution Width 13.9 % (12.1-15.1); White Blood Count 11.93 10^3/uL (3.29-11.43)
[2024-03-11 04:14] LABS: INR 1.52 (0.8-1.2)
[2024-03-11 04:24] LABS: Alanine Aminotransferase 42 U/L (0-41); Albumin Level 2.3 g/dL (3.5-5.2); Alkaline Phosphatase 88 U/L (40-130); Anion Gap 14.6 (5-19); Aspartate Amino Transferase 16 U/L (0-40); Blood Urea Nitrogen 45 mg/dL (8-23); Calcium 7.8 mg/dL (8.5-10.5); Carbon Dioxide 25 mmol/L (22-29); Chloride 105 mmol/L (98-107); Creatinine Clr Calc Pharmacy 44.9793; Globulin 2.3 g/dL (1.3-4.6); Glucose 243 mg/dL (65-115); Osmolality Calculated 312 mOsm/kg (285-295); Potassium 3.6 mmol/L (3.5-5.1); Sodium 141 mmol/L (136-145); Total Bilirubin 0.4 mg/dL (0.15-1.2); Total Protein 4.6 g/dL (6.6-8.7)
[2024-03-11 04:39] LABS: Slide Review Slide Review Perform
[2024-03-11] MEDS: lactobacillus 1 Tablet 1 TAB PO ×2 (08:27→18:35)
[2024-03-11] MEDS: pantoprazole DR 40 mg Tablet PO ×2 (08:27→18:35)
[2024-03-11] MEDS: metoprolol tartrate 25 mg Tablet 12.5 MG PO (08:27)
[2024-03-11] MEDS: tamsulosin 0.4 mg Capsule PO (08:27)
[2024-03-11] MEDS: aspirin 81 mg EC Tablet PO (08:27)
[2024-03-11] MEDS: predniSONE 20 mg Tablet PO (08:27)
--- NOTE | 2024-03-11 11:27 | P.DS_ITS ---
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 Blood cultures from 9 Streptococcus bovis bacteremia. Patient has a history of additional strep gallolyticus bacteremia 1 year ago. Source evaluation at that time was overall negative. Patient has been on treatment with ceftriaxone 2 g IV every 24 hours and has shown improvement during the treatment course. Hospital course was notable for thrombocytopenia with lowest platelet count of 36, leukocytosis up to 48,000 at its peak. Peripheral smear showing no schistocytes or teardrop cells. Less likely TTP. Features of leukemoid reaction noted. He received stress dose steroids initially which have been tapered down to prednisone 20 mg daily at the time of discharge. With treatment he improved significantly. His white blood cell count at the time of discharge is 11.9. Platelet count has recovered, currently at 250 at the time of discharge. Other notable hospital events included A-fib with RVR for which patient was initially treated with amiodarone infusion. Once his blood pressure stabilized he was switched over to beta-blockers. He has been discharged home with metoprolol 12.5 mg p.o. daily. Is also noted to have a type II NH. Troponins were elevated in the 100s range. Cardiology service was consulted. E chocardiogram Showed LVEF of 45 to 50%, moderate eccentric mitral regurgitation. No prior echocardiograms available to compare. MYA was deferred due to thrombocytopenia. It was decided to treat patient with overall 4 weeks of IV antibiotics. Given that this is the second episode of life-threatening sepsis from invasive streptococcal disease with postsplenectomy status , he is instructed to begin chronic suppression with amoxicillin 500 mg p.o. daily. Patient follows with infectious disease out of [facility]. Advised to follow-up with ID in the next month. While on IV ceftriaxone over the next month, weekly labs including CBC, LFT, creatinine will be obtained via home health and faxed to infectious disease clinic at [facility] for review. Patient was transiently hypoxic earlier in the course of admission which was multifactorial related to sepsis, fluid overload, CHF exacerbation precipitated by rapid A-fib. He has been able to wean off of oxygen. Currently euvolemic. Home oxygen evaluation was completed prior to discharge. He has deconditioning related to his acute illness, being discharged home with recommendations to continue home PT OT. He had frequent episodes of intermittent diarrhea, 1-2 episodes per day. C. difficile testing negative x 2. Likely antibiotic associated diarrhea. He is significantly improved compared to admission. This documentation was created by [employer] mop handle assembler software. Every effort was made to ensure accuracy of mop handle assembler. Any obvious errors or omissions should be clarified with the author of the document. Physical Exam Narrative: General: No acute distress, AO x3 HEENT: PERRLA, pupils bilaterally equal and reactive, pallors not present Chest: Normal vesicular breath sounds, no added sounds, equal good air entry bilaterally CVS: S1-S2 regular, no murmurs, no tachycardia, no gallops, no rubs Abdomen: Soft, nontender, no organomegaly, bowel sounds present Neuro: No focal deficits, no facial deformity, AO x3, power 5/5 in all limbs Urinary Catheter Management: Burroughs: Cath Placed During This Visit: yes, but has since been removed by the nurse Reason for Continuing Indwelling Catheter: Decision to DC Catheter Urinary Catheter Date of Insertion: 03/02/24 Urinary Catheter Time of Insertion: 21:00 Date Urinary Catheter Removed: 03/09/24 Time Urinary Catheter Discontinued: 18:00 Discharge Data Studies Completed and Pending Completed Studies During Hospitalization Category Date Time Status CTA chest CT abdomen pelvis [CT angio chest w abd pel w Cat Scan 03/02/24 21:12 Completed con] Stat CXRP [XR chest 1V portable [id number]] Routine Exams 03/07/24 13:31 Completed CXRP [XR chest 1V portable [id number]] Routine Exams 03/08/24 12:16 Completed XR chest 1V portable [id number] Routine Exams 03/04/24 00:22 Completed XR chest 1V portable [id number] Stat Exams 03/02/24 20:19 Completed CV. echo complete* [id number] Routine Ultrasound 03/07/24 11:01 Completed CV. echo limited [id number] Routine Ultrasound 03/05/24 06:00 Completed Pending at discharge Category Date Time Status Prothrombin Time INR AM LABS Lab 03/12/24 04:00 Ordered Radiology Impressions Chest/Abdomen/Pelvis CT 03/02/24 21:12 IMPRESSION: 1. No pulmonary emboli. 2. Retained secretions in the esophagus up to the level of the thoracic inlet. IMPRESSION: 1. No bowel obstruction or inflammatory process associated with the bowel. 2. No free air or significant free fluid in the abdomen or pelvis. 3. No evidence of appendicitis. 4. Periportal edema which can be seen the setting of acute hepatitis. Chest X-Ray 03/08/24 12:16 IMPRESSION: 1. Pulmonary vascular congestion more pronounced on the RIGHT. There is also consolidation in the LEFT retrocardiac region suggesting either pneumonia and/or atelectasis. Small bibasal pleural effusions noted with slight increase on the RIGHT. 2. Mild cardiac enlargement unchanged. Laboratory Results WBC 11.93 10^3/uL (3.29-11.43) H 03/11/24 03:37 RBC 3.52 10^6/uL (3.85-5.65) L 03/11/24 03:37 Hgb 11.00 g/dL (11.27-16.99) L 03/11/24 03:37 Hct 33.3 % (37-53) L 03/11/24 03:37 MCV 94.6 fl (82-101) 03/11/24 03:37 MCH 31.3 pg (27-33) 03/11/24 03:37 MCHC 33.0 g/dL (30-55) 03/11/24 03:37 RDW 13.9 % (12.1-15.1) 03/11/24 03:37 Plt Count 250 10^3/cmm (157-399) D 03/11/24 03:37 MPV 12.0 fL (7.4-10.4) H 03/11/24 03:37 Neut % (Auto) 74.9 % 03/11/24 03:37 Lymph % (Auto) 14.4 % 03/11/24 03:37 [place] % (Auto) 9.4 % 03/11/24 03:37 Eos % (Auto) 0.2 % 03/11/24 03:37 Baso % (Auto) 0.2 % 03/11/24 03:37 Neut # (Auto) 8.94 10^3/uL (1.8-7.7) H 03/11/24 03:37 Lymph # (Auto) 1.7 10^3/uL (0.8-4.8) 03/11/24 03:37 [place] # (Auto) 1.1 10^3/uL (0.2-0.9) H 03/11/24 03:37 Eos # (Auto) 0.0 10^3/uL (0.0-0.8) 03/11/24 03:37 Baso # (Auto) 0.0 10^3/uL (0.0-0.1) 03/11/24 03:37 Nucleated RBC % (auto) 0.3 % 03/11/24 03:37 Total Counted 100 (0-100) 03/07/24 04:38 Atypical Lymphs % 0.0 % (0-5) 03/07/24 04:38 Absolute Neutrophils 27.3 10^3/cmm (1.4-6.5) H 03/07/24 04:38 Segmented Neutrophils 66 % 03/07/24 04:38 Band Neutrophils 20.0 % 03/07/24 04:38 Absolute Lymphocytes 2.9 10^3/cmm (1.2-3.4) 03/07/24 04:38 Lymphocytes (Manual) 9 % 03/07/24 04:38 Monocytes (Manual) 5.0 % 03/07/24 04:38 Absolute Monocytes 1.6 10^3/cmm (0.1-0.6) H 03/07/24 04:38 Eosinophils (Manual) 0 % 03/07/24 04:38 Absolute Eosinophils 0.0 10^3/cmm (0.0-0.7) 03/07/24 04:38 Basophils (Manual) 0.0 % 03/07/24 04:38 Absolute Basophils 0.0 10^3/cmm (0.0-0.2) 03/07/24 04:38 Metamyelocytes 5.0 % 03/03/24 02:52 Nucleated RBCs 3.0 /100WBC (0-1) H 03/07/24 04:38 Nucleated RBCs # 0.0 /100WBC 03/11/24 03:37 Platelet Estimate Decreased (Normal) 03/07/24 04:38 Peripher Smr Path Cons Sent for review 03/04/24 05:31 Haptoglobin 124.0 mg/L (30-200) 03/04/24 05:31 PT 18.90 SECONDS (12.1-14.9) H 03/11/24 03:37 INR 1.52 (0.8-1.2) H 03/11/24 03:37 Specimen Type Arterial 03/04/24 12:30 Sample Site Radial, left 03/04/24 12:30 ABG pH 7.32 (7.35-7.45) L 03/04/24 12:30 ABG pCO2 34.6 mmHg (35-45) L 03/04/24 12:30 ABG pO2 85.0 mmHg (80.0-100.0) 03/04/24 12:30 ABG PO2/FiO2 Ratio 217 03/04/24 12:30 ABG HCO3 17.9 mmol/L (22-26) L 03/04/24 12:30 ABG Base Excess -7.4 mmol/L (-2.0-2.0) L 03/04/24 12:30 [place] Test Pos 03/04/24 12:30 Hematocrit 38.8 % (42-52) L 03/04/24 12:30 O2 Delivery Device Nc 03/04/24 12:30 O2 Liters/Min 4.0 % 03/04/24 12:30 FiO2 39.0 % 03/04/24 12:30 Ventilating Engineer ID [id number] 03/04/24 12:30 Sodium 141 mmol/L (136-145) 03/11/24 03:37 Potassium 3.6 mmol/L (3.5-5.1) 03/11/24 03:37 Chloride 105 mmol/L (98-107) 03/11/24 03:37 Carbon Dioxide 25 mmol/L (22-29) 03/11/24 03:37 Anion Gap 14.6 (5-19) 03/11/24 03:37 BUN 45 mg/dL (8-23) H 03/11/24 03:37 Creatinine 1.5 mg/dL (0.7-1.2) H 03/11/24 03:37 GFR Calculation Not Reportable 03/11/24 03:37 Glucose 243 mg/dL (65-115) H 03/11/24 03:37 POC Glucose 196 mg/dL (70-110) H 03/04/24 21:53 Estimat Average Glucose 94 03/02/24 20:09 Hemoglobin A1c 4.9 % (4.0-6.0) 03/02/24 20:09 Calculated Osmolality 312 mOsm/kg (285-295) H 03/11/24 03:37 Lactic Acid 6.7 mmol/L (0.5-2.2) H* 03/02/24 20:09 Lactic Acid (Sepsis) 7.2 mmol/L (0.5-2.2) H* 03/02/24 22:06 Lactate 2.7 mmol/L (0.5-2.2) H 03/04/24 13:56 Uric Acid 4.6 mg/dL (3.4-7.0) 03/04/24 05:31 Calcium 7.8 mg/dL (8.5-10.5) L 03/11/24 03:37 Ionized Calcium Narayan 1.0 mmol/L (1.1-1.4) L 03/04/24 13:56 Phosphorus 4.1 mg/dL (2.5-4.5) 03/06/24 04:35 Magnesium 2.3 mg/dL (1.7-2.3) 03/06/24 04:35 Total Bilirubin 0.4 mg/dL (0.15-1.2) 03/11/24 03:37 AST 16 U/L (0-40) 03/11/24 03:37 ALT 42 U/L (0-41) H 03/11/24 03:37 Alkaline Phosphatase 88 U/L (40-130) 03/11/24 03:37 Ammonia 26 umol/L (16-60) 03/05/24 05:21 Lactate Dehydrogenase 336 U/L (135-225) H 03/04/24 05:31 Troponin T Baseline 17 ng/L (0-15) H 03/02/24 20:31 Troponin T 120 Minute 36.91 ng/L (0-15) H 03/02/24 22:06 Delta Troponin T 19.91 ABS# (0-10) H* 03/02/24 22:06 Troponin T Hi Sens 6Hr 147.5 ng/L (0-15) H 03/03/24 02:52 Troponin T Hi Sens 6Hr Delta 130.5 ng/L (0-12) H* 03/03/24 02:52 C-Reactive Protein 31.3 mg/L (0.0-4.9) H 03/03/24 02:52 NT-Pro-B Natriuret Pep 63967 pg/mL (0-450) H 03/05/24 05:21 Total Protein 4.6 g/dL (6.6-8.7) L 03/11/24 03:37 Albumin 2.3 g/dL (3.5-5.2) L 03/11/24 03:37 Globulin 2.3 g/dL (1.3-4.6) 03/11/24 03:37 Lipase 28 U/L (13-60) 03/02/24 20:09 Vitamin B12 238 pg/mL (232-1245) 03/02/24 20:31 Procalcitonin 62.33 ng/mL (0-0.5) H 03/03/24 02:52 TSH 6.53 uIU/mL (0.27-4.20) H 03/02/24 20:31 Urine Color Yellow (Yellow) 03/02/24 20:41 Urine Appearance Clear (CLEAR) 03/02/24 20:41 Urine pH 5.5 (5-7) 03/02/24 20:41 Ur Specific [place] 1.021 (1.005-1.030) 03/02/24 20:41 Urine Protein 1+ (Negative) A 03/02/24 20:41 Urine Glucose (UA) 2+ (Normal) H 03/02/24 20:41 Urine Ketones Negative (Negative) 03/02/24 20:41 Urine Blood 3+ (Negative) A 03/02/24 20:41 Urine Nitrate Negative (Negative) 03/02/24 20:41 Urine Bilirubin Negative (Negative) 03/02/24 20:41 Urine Urobilinogen 0.2 mg/dL (Negative) 03/02/24 20:41 Ur Leukocyte Esterase Negative (Negative) 03/02/24 20:41 Urine RBC 10-15 /hpf (0-2) H 03/02/24 20:41 Urine WBC 0-4 /hpf (0-5) H 03/02/24 20:41 Ur Squamous Epith Cells 0-4 /hpf (0-5) H 03/02/24 20:41 Amorphous Sediment Not Reportable 03/02/24 20:41 Urine Bacteria Trace /hpf (NONE) 03/02/24 20:41 Vancomycin Trough 25.7 ug/mL (10-15) H* 03/05/24 07:53 Digoxin 1.2 ng/mL (0.6-1.2) 03/06/24 04:35 C. difficile (PCR) Negative (Negative) 03/07/24 10:35 Coronavirus (PCR) Negative (Negative) 03/02/24 20:05 Influenza A (PCR) Negative (Negative) 03/02/24 20:05 Influenza Type B (PCR) Negative (Negative) 03/02/24 20:05 RSV (PCR) Negative (Negative) 03/02/24 20:05 Vitals Last Vital Signs Temp 97.8 F 03/11/24 08:44 Pulse 64 03/11/24 08:44 Resp 18 03/11/24 08:44 BP 147/83 03/11/24 08:44 Pulse Ox 95 03/11/24 08:44 O2 Del Method Room Air 03/11/24 08:44 O2 Flow Rate 4 03/09/24 08:00 FiO2 4 03/07/24 06:00 Discharge Plan Discharge Patient Disposition: Home Condition: Fair Prescriptions: New metoprolol succinate 25 mg tablet extended release 24 hr 12.5 mg PO DAILY Qty: 30 0RF aspirin 81 mg Tablet,Delayed Release (Dr/Ec) 81 mg PO DAILY 30 Days Qty: 30 0RF amoxicillin 500 mg capsule 500 mg PO DAILY 30 Days Qty: 30 1RF Continued tamsulosin 0.4 mg capsule 0.4 mg PO DAILY warfarin 5 mg tablet 7.5 mg PO DAILY Rx Instructions: 7.5 mg Monday - Monday omeprazole 20 mg capsule,delayed release(DR/EC) 20 mg PO DAILY atorvastatin 20 mg tablet 20 mg PO EVERY OTHER DAY warfarin 5 mg Tablet See Rx Instructions .ROUTE .COMPLEX Rx Instructions: 5 mg orally Monday & Monday Changed prednisone 20 mg tablet 20 mg PO daily Qty: 10 0RF Rx Instructions: Mon-Mon- Mon 10mg. Discharge Orders: Discharge Order (Routine); Ordered 03/11/24 Ordered By: Tania Naranjo Other Ambulatory Orders: DME: [facility] (Order) Location: None Selected Ordered By: Tania Naranjo Referrals: [place] [Outside] [facility] [Outside] Mau Tucker DO [Primary Care Provider] - 03/14/24 1:30 pm (This appoointment is schedule with Carole CUADRA as Dr. Tucker is booked until mid- March. Thank you) Discharge Diet: Usual diet Discharge Activity: Resume usual activity Patient Instructions: Opioid Safety Activity Restrictions/Additional Instructions: begin amoxicillin 500mg po daily chronic suppression once you complete iv ceftriaxone course. please follow up with your infectious disease provider within the next month. Discharge Attestations Time Spent in Discharge Care*: greater than 30 min Quality Metrics Clinical Quality Measures [ No reported AMI, CVA or VTE this stay] Coding Level of Care Code Acute Code for g Fwd Diagnoses Septic shock A41.9; R65.21 Disease due to invasive Streptococcus species B95.5 Non-STEMI (non-ST elevated myocardial infarction) I21.4 Pollock esophagus K22.70 Transaminitis R74.01 Leukemoid reaction D72.823 Thrombocytopenia D69.6
--- NOTE | 2024-03-11 12:12 | PC.NURSE ---
received a call from [facility] Per GINGER Rivas of [facility], ETA for the pt's home infusion equipment from [employer] will be about 6pm or so.
[2024-03-11] MEDS: cefTRIAXone 2,000 mg SDV 2000 MG IVP (14:57)
--- NOTE | 2024-03-11 18:44 | PC.NURSE ---
[facility] delivered his IV infusion equipments in room. home o2 and walker were delivered.
--- NOTE | 2024-03-11 19:23 | PC.NURSE ---
Discharge Note Patient discharged to home with home health services via private vehicle accompanied by SO. Discharge instructions reviewed with patient and/or artist's representative. Mobile pharmacy medications and/or prescriptions provided. Belongings/home medications returned.
== END 2024-03-11 19:23 | disposition home health service (06) | DRG 871 ==
LOC: ER 20:14 → ICU 23:15 → CSU 03-10 04:44
PROVIDERS: Emergency Medicine; Admitting Provider Internal Medicine; Emergency Provider Emergency Medicine; PCP Family Medicine; Visit Provider Student in an Organized Health Care Education/Training Program
DX: A40.9 Streptococcal sepsis, unspecified (principal); I21.A1 Myocardial infarction type 2; R65.21 Severe sepsis with septic shock; N17.0 Acute kidney failure with tubular necrosis; C85.98 Non-Hodgkin lymphoma, unspecified, lymph nodes of multiple sites; D59.10 Autoimmune hemolytic anemia, unspecified; F05 Delirium due to known physiological condition; K22.70 Barrett's esophagus without dysplasia; D69.6 Thrombocytopenia, unspecified; R74.01 Elevation of levels of liver transaminase levels; I48.0 Paroxysmal atrial fibrillation; I50.9 Heart failure, unspecified; R09.02 Hypoxemia; N20.0 Calculus of kidney; Z87.442 Personal history of urinary calculi; R31.9 Hematuria, unspecified; N40.0 Benign prostatic hyperplasia without lower urinary tract symptoms; K21.9 Gastro-esophageal reflux disease without esophagitis; E83.42 Hypomagnesemia; E87.6 Hypokalemia; R19.7 Diarrhea, unspecified; I95.9 Hypotension, unspecified; R00.1 Bradycardia, unspecified; Z79.01 Long term (current) use of anticoagulants; Z79.69 Long term (current) use of other immunomodulators and immunosuppressants; Z86.718 Personal history of other venous thrombosis and embolism; Z86.711 Personal history of pulmonary embolism; Z90.81 Acquired absence of spleen; Z87.891 Personal history of nicotine dependence
CPT/HCPCS: 0241U; 36415; 36416; 36573; 36592; 36600; 51702; 71045; 71275; 74177; 80053; 80162; 80202; 80503; 81001; 82140; 82330; 82607; 82803; 82962; 83010; 83036; 83605; 83615; 83690; 83735; 83880; 84100; 84145; 84443; 84484; 84550; 85007; 85025; 85610; 86140; 87040; 87077; 87150; 87186; 87205; 87493; 92523; 92526; 92610; 93005; 93306; 93308; 94640; 94660; 94760; 96365; 96366; 96367; 96372; 96374; 96375; 96376; 97110; 97116; 97162; 97166; 97530; 97535; 99285; A4222; J0283; J0696; J1160; J1200; J1650; J1720; J1885; J1940; J1956; J2185; J2270; J2405; J2470; J2598; J2919; J3370; J3475; J3480; J3490; J7030; J7050; J7512

== ENCOUNTER 2024-05-08 07:31 | Inpatient (IN) | payer MEDICARE, OTHER, SELFPAY ==
[2024-05-08] VITALS (11 sets, daily range): BP systolic 110–160; BP diastolic 75–88; PULSE 77–113; RESP 16–18; TEMP 36.7–37.8; O2SAT 91–99; BMI 22.0; BMI 21.7
--- NOTE | 2024-05-08 07:36 | XR_ITS ---
WS: [id number] XR chest 1V portable [id number] REASON FOR EXAM: dyspnea/cough FINDINGS: Moderate tortuosity and ectasia of the thoracic aorta. The heart is within normal limits. Compared to the examination of 03/02/2024 there are noted to be chronic coarse interstitial lung opacities however the overall opacity of the right lower lung field appears increased and there may be a superimposed groundglass density representing an acute or subacute inflammatory process. The chest is otherwise unchanged compared to the previous study. XR/XR chest 1V portable [id number] IMPRESSION: Possibly an acute/subacute pneumonitis superimposed on chronic interstitial gwendolyn g disease.
[2024-05-08 08:36] LABS: Basophils # 0.1 10^3/uL (0.0-0.1); Basophils % 0.4 %; Eosinophils # 0.2 10^3/uL (0.0-0.8); Eosinophils % 1.4 %; Hematocrit 41.8 % (37-53); Lymphocytes # 1.6 10^3/uL (0.8-4.8); Lymphocytes % 10.7 %; Mean Corpuscular Hemoglobin 27.1 pg (27-33); Mean Platelet Volume 11.4 fL (7.4-10.4); Monocytes # 1.6 10^3/uL (0.2-0.9); Monocytes % 10.8 %; Neutrophils # 10.32 10^3/uL (1.8-7.7); Neutrophils % 69.6 %; Nucleated Red Blood Cells % 0.3 %; Platelet Count 424 10^3/cmm (157-399); Red Cell Distribution Width 14.7 % (12.1-15.1); White Blood Count 14.82 10^3/uL (3.29-11.43)
[2024-05-08 08:48] LABS: Alanine Aminotransferase 46 U/L (0-41); Albumin Level 3.2 g/dL (3.5-5.2); Alkaline Phosphatase 81 U/L (40-130); Aspartate Amino Transferase 49 U/L (0-40); Blood Urea Nitrogen 16 mg/dL (8-23); Calcium 8.8 mg/dL (8.5-10.5); Carbon Dioxide 20 mmol/L (22-29); Chloride 93 mmol/L (98-107); Creatinine Clr Calc Pharmacy 55.5563; Globulin 4.3 g/dL (1.3-4.6); Glucose 165 mg/dL (65-115); Osmolality Calculated 275 mOsm/kg (285-295); Sodium 130 mmol/L (136-145); Total Protein 7.5 g/dL (6.6-8.7)
[2024-05-08 09:07] LABS: Slide Review Slide Review Perform
[2024-05-08 09:09] LABS: INR 1.36 (0.8-1.2)
[2024-05-08 09:13] LABS: Lactic Sepsis W/Reflex 1.2 mmol/L (0.5-2.2)
--- NOTE | 2024-05-08 11:10 | W.ED.FEVER ---
HPI - Fever General: Chief Complaint: Fever Stated Complaint: Fever Time Seen by Provider: 05/08/24 07:35 History of Present Illness: 73-year-old male presents emergency room with complaints of fever at home up to 101.7 cough and congestion cough some mildly productivity has been somewhat short of breath intermittently here his oxygen saturation will drop and put him on 2 L. He denies any hemoptysis. No vomiting no diarrhea. Associated symptoms: Reports chills; Deny abdominal pain, chest pain or dysuria Related Data Home Medications ?Medication ?Instructions ?Recorded ?Confirmed atorvastatin 20 mg tablet 20 mg PO EVERY OTHER DAY 12/03/23 05/08/24 omeprazole 20 mg capsule,delayed 20 mg PO DAILY 12/03/23 05/08/24 release apixaban 2.5 mg tablet (Eliquis) 5 mg PO BID 05/08/24 05/08/24 cefadroxil 500 mg capsule 500 mg PO Q12H 05/08/24 05/08/24 hydrocodone 5 mg-acetaminophen 325 1 tab PO Q6H PRN Pain 05/08/24 05/08/24 mg tablet meclizine 25 mg tablet 25 mg PO DAILY PRN Dizziness 05/08/24 05/08/24 ondansetron HCl 8 mg tablet 8 mg PO Q8H PRN Nausea And Vomiting 05/08/24 05/08/24 potassium chloride 10 mEq 10 meq PO QAM 05/08/24 05/08/24 tablet,extended release tizanidine 4 mg tablet 4 mg PO Q8H PRN muscle spasms 05/08/24 05/08/24 Previous Rx's ?Medication ?Instructions ?Recorded metoprolol succinate 25 mg 12.5 mg (1/2 x 25 mg) PO DAILY #30 03/11/24 tablet,extended release 24 hr tabs Allergies Allergy/AdvReac Type Severity Reaction Status Date / Time iodine Allergy rash Verified 12/03/23 11:05 Penicillins Allergy Rash Verified 12/03/23 11:01 sertraline Allergy Swelling Verified 12/03/23 11:05 Review of Systems Const: Reports: fever(s), chills, change in appetite and fatigue Card: Denies: chest pain Resp: Reports: dyspnea, productive cough, wheezing and chest congestion GI: Denies: abdominal pain : Denies: dysuria, urinary frequency or urinary urgency Musc: Denies: neck pain or back pain Skin/Breast: Denies: rash PFSH ED PFSH: Medical History GERD (gastroesophageal reflux disease) BPH (benign prostatic hyperplasia) Abnormal cystoscopy Pulmonary embolism Surgical History S/P cholecystectomy Social History Smoking and tobacco/nicotine status: former use of tobacco/nicotine Physical Exam Const: GENERAL APPEARANCE: cooperative ORIENTATION/CONSCIOUSNESS: Yes awake, Yes oriented to person, Yes oriented to place and Yes oriented to time HENMT: COMMON NORMALS: normocephalic, atraumatic and hearing grossly normal bilaterally HEAD & SCALP: normocephalic and atraumatic Resp: COMMON NORMALS: normal respiratory effort, No retractions, No use of accessory muscles and clear to auscultation bilaterally AUSCULTATION: clear to auscultation bilaterally Cardio: COMMON NORMALS: regular rate, regular rhythm and No murmurs present (Cardio) RATE: regular rate RHYTHM: regular rhythm GI: COMMON NORMALS: Soft to palpation and No hepatosplenomegaly present AUSCULTATION: Yes normoactive bowel sounds PALPATION: Yes Soft to palpation, No Tenderness to palpation present (GI), No Guarding due to palpation present (GI) and Yes No hepatosplenomegaly present Extremity: COMMON NORMALS: normal to inspection, capillary refill normal, no clubbing, cyanosis or edema, no calf tenderness and no pedal edema Neuro: SENSORIUM/ORIENTATION: Yes oriented to person, Yes oriented to place and Yes oriented to time Skin: COMMON NORMALS: no rashes or lesions noted GENERAL SKIN EXAM: no rashes or lesions noted Course Vital Signs: Vital signs: Vital Signs Temperature 98.1 F 05/08/24 07:50 Pulse Rate 84 05/08/24 11:05 Respiratory Rate 18 05/08/24 10:49 Blood Pressure 152/88 05/08/24 13:34 Pulse Oximetry 93 05/08/24 13:34 Oxygen Delivery Me thod Room Air 05/08/24 13:34 MDM - Fever Medical Decision Making By lobar pneumonia on the right. Patient does have leukocytosis not septic at this time intermittently we are seeing oxygen saturations drop below 90 was started on 2 L by nasal cannula. Started on oral antibiotics will admit. Discussed with hospitalist orders written Medical Records I reviewed the patient's medical records. Lab Data I reviewed the patient's lab results. 05/08/24 08:16 05/08/24 08:16 Radiology Impressions Chest X-Ray 05/08/24 07:36 IMPRESSION: Possibly an acute/subacute pneumonitis superimposed on chronic interstitial lung disease. Laboratory Results WBC 14.82 10^3/uL (3.29-11.43) H 05/08/24 08:16 RBC 5.10 10^6/uL (3.85-5.65) 05/08/24 08:16 Hgb 13.80 g/dL (11.27-16.99) 05/08/24 08:16 Hct 41.8 % (37-53) 05/08/24 08:16 MCV 82.0 fl (82-101) 05/08/24 08:16 MCH 27.1 pg (27-33) 05/08/24 08:16 MCHC 33.0 g/dL (30-55) 05/08/24 08:16 RDW 14.7 % (12.1-15.1) 05/08/24 08:16 Plt Count 424 10^3/cmm (157-399) H 05/08/24 08:16 MPV 11.4 fL (7.4-10.4) H 05/08/24 08:16 Neut % (Auto) 69.6 % 05/08/24 08:16 Lymph % (Auto) 10.7 % 05/08/24 08:16 [place] % (Auto) 10.8 % 05/08/24 08:16 Eos % (Auto) 1.4 % 05/08/24 08:16 Baso % (Auto) 0.4 % 05/08/24 08:16 Neut # (Auto) 10.32 10^3/uL (1.8-7.7) H 05/08/24 08:16 Lymph # (Auto) 1.6 10^3/uL (0.8-4.8) 05/08/24 08:16 [place] # (Auto) 1.6 10^3/uL (0.2-0.9) H 05/08/24 08:16 Eos # (Auto) 0.2 10^3/uL (0.0-0.8) 05/08/24 08:16 Baso # (Auto) 0.1 10^3/uL (0.0-0.1) 05/08/24 08:16 Nucleated RBC % (auto) 0.3 % 05/08/24 08:16 Nucleated RBCs # 0.0 /100WBC 05/08/24 08:16 PT 17.70 SECONDS (12.1-14.9) H 05/08/24 08:16 INR 1.36 (0.8-1.2) H 05/08/24 08:16 Sodium 130 mmol/L (136-145) L 05/08/24 08:16 Potassium 3.0 mmol/L (3.5-5.1) L 05/08/24 08:16 Chloride 93 mmol/L (98-107) L 05/08/24 08:16 Carbon Dioxide 20 mmol/L (22-29) L 05/08/24 08:16 Anion Gap 20.0 (5-19) H 05/08/24 08:16 BUN 16 mg/dL (8-23) 05/08/24 08:16 Creatinine 1.2 mg/dL (0.7-1.2) 05/08/24 08:16 GFR Calculation Not Reportable 05/08/24 08:16 Glucose 165 mg/dL (65-115) H 05/08/24 08:16 Calculated Osmolality 275 mOsm/kg (285-295) L 05/08/24 08:16 Lactic Acid 1.2 mmol/L (0.5-2.2) 05/08/24 08:16 Calcium 8.8 mg/dL (8.5-10.5) 05/08/24 08:16 Total Bilirubin 1.0 mg/dL (0.15-1.2) 05/08/24 08:16 AST 49 U/L (0-40) H 05/08/24 08:16 ALT 46 U/L (0-41) H 05/08/24 08:16 Alkaline Phosphatase 81 U/L (40-130) 05/08/24 08:16 Total Protein 7.5 g/dL (6.6-8.7) 05/08/24 08:16 Albumin 3.2 g/dL (3.5-5.2) L 05/08/24 08:16 Globulin 4.3 g/dL (1.3-4.6) 05/08/24 08:16 Procalcitonin 0.38 ng/mL (0-0.5) 05/08/24 08:16 Urine Color Yellow (Yellow) 05/08/24 13:20 Urine Appearance Clear (CLEAR) 05/08/24 13:20 Urine pH 6.5 (5-7) 05/08/24 13:20 Ur Specific [place] 1.020 (1.005-1.030) 05/08/24 13:20 Urine Protein 2+ (Negative) A 05/08/24 13:20 Urine Glucose (UA) Negative (Normal) 05/08/24 13:20 Urine Ketones Negative (Negative) 05/08/24 13:20 Urine Blood Non-haemolysed trace (Negative) 05/08/24 13:20 Urine Nitrate Negative (Negative) 05/08/24 13:20 Urine Bilirubin Negative (Negative) 05/08/24 13:20 Urine Urobilinogen 1.0 mg/dL (Negative) 05/08/24 13:20 Ur Leukocyte Esterase Negative (Negative) 05/08/24 13:20 Urine RBC 6-10 /hpf (0-2) 05/08/24 13:20 Urine WBC 0-5 /hpf (0-5) 05/08/24 13:20 Ur Squamous Epith Cells 0-5 /hpf (0-5) 05/08/24 13:20 Amorphous Sediment Not Reportable 05/08/24 13:20 Urine Bacteria None seen /hpf (NONE) 05/08/24 13:20 Hyaline Casts 2.46 /lpf 05/08/24 13:20 Coronavirus (PCR) Negative (Negative) 05/08/24 10:40 Influenza A (PCR) Negative (Negative) 05/08/24 10:40 Influenza Type B (PCR) Negative (Negative) 05/08/24 10:40 RSV (PCR) Negative (Negative) 05/08/24 10:40 All radiology interpretation(s) finalized by discharge Discharge Plan Discharge Patient Disposition: Admitted As Inpatient Admit Provider: Addis Nath Clinical Impression: Pneumonia, Immunosuppressed status, Post-splenectomy Condition: Stable Coding Level of Care Code ED Cyber Incident Responder for José Antonio Vasquez
[2024-05-08 11:54] LABS: Influenza A NEGATIVE (Negative); Influenza B NEGATIVE (Negative); Respiratory Syncytial Virus Ce NEGATIVE (Negative); SARS-CoV-2 PCR NEGATIVE (Negative)
[2024-05-08] MEDS: levofloxacin-dextrose 5 % 500 MG/100 ML PREMIX 100 MG IV (12:32)
[2024-05-08 13:31] LABS: Bilirubin Urine Negative (Negative); Blood Urine Non-haemolysed trace (Negative); Glucose Urine UA Negative (Normal); Ketones Urine Negative (Negative); Leukocyte Esterase Urine Negative (Negative); Nitrate Urine Negative (Negative); Protein Urine 2+ (Negative); Urine Appearance Clear (CLEAR); Urine Color Yellow (Yellow); pH Urine 6.5 (5-7)
[2024-05-08 13:36] LABS: Add Urine Microscopic? YES; Bacteria Urine None Seen /hpf; Hyaline Casts Urine 2.46 /lpf; Squamous Epithelial Cell Urine 0-5 /hpf (0-5); WBC Urine 0-5 /hpf (0-5)
--- NOTE | 2024-05-08 14:25 | PC.PHAR ---
Isaac states pt is taking Novolog via sliding scale-unable to locate an order for it at any pharmacy.
--- NOTE | 2024-05-08 15:01 | PM.HP ---
Providers/Chief Complaint Admitting Physician: Addis Nath MD Primary Care Provider: Mau Tucker DO Chief Complaint: Fever History of Present Illness Solis Johnston is a 73 year old male presented to the hospital today with complaint of fever 101.1 this morning. The following is patient's discharge summary from previous admission. 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 Blood cultures from 9 Streptococcus bovis bacteremia. Patient has a history of additional strep gallolyticus bacteremia 1 year ago. Source evaluation at that time was overall negative. Patient has been on treatment with ceftriaxone 2 g IV every 24 hours and has shown improvement during the treatment course. Hospital course was notable for thrombocytopenia with lowest platelet count of 36, leukocytosis up to 48,000 at its peak. Peripheral smear showing no schistocytes or teardrop cells. Less likely TTP. Features of leukemoid reaction noted. He received stress dose steroids initially which have been tapered down to prednisone 20 mg daily at the time of discharge. With treatment he improved significantly. His white blood cell count at the time of discharge is 11.9. Platelet count has recovered, currently at 250 at the time of discharge. Other notable hospital events included A-fib with RVR for which patient was initially treated with amiodarone infusion. Once his blood pressure stabilized he was switched over to beta-blockers. He has been discharged home with metoprolol 12.5 mg p.o. daily. Is also noted to have a type II VA. Troponins were elevated in the 100s range. Cardiology service was consulted. Echocardiogram Showed LVEF of 45 to 50%, moderate eccentric mitral regurgitation. No prior echocardiograms available to compare. MYA was deferred due to thrombocytopenia. It was decided to treat patient with overall 4 weeks of IV antibiotics. Given that this is the second episode of life-threatening sepsis from invasive streptococcal disease with postsplenectomy status , he is instructed to begin chronic suppression with amoxicillin 500 mg p.o. daily. Patient follows with infectious disease out of [facility]. Advised to follow-up with ID in the next month. While on IV ceftriaxone over the next month, weekly labs including CBC, LFT, creatinine will be obtained via home health and faxed to infectious disease clinic at [facility] for review. Patient was transiently hypoxic earlier in the course of admission which was multifactorial related to sepsis, fluid overload, CHF exacerbation precipitated by rapid A-fib. He has been able to wean off of oxygen. Currently euvolemic. Home oxygen evaluation was completed prior to discharge. He has deconditioning related to his acute illness, being discharged home with recommendations to continue home PT OT. He had frequent episodes of intermittent diarrhea, 1-2 episodes per day. C. difficile testing negative x 2. Likely antibiotic associated diarrhea. He is significantly improved compared to admission. 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 He has a strep bovis bacteremia, strep gallolyticus bacteremia 1 year ago. He has been given 4 weeks of IV antibiotics in the past. He follows with infectious disease at [facility]. He follows with Dr. Piper. Patient states he chronically has intermittent diarrhea 1-2 episodes per day. C. difficile has been negative in the past. This may be possibly secondary to antibiotic associated diarrhea. Today he presents back to the hospital with complaint of fever this morning 101.7 axillary. Denies phlegm but has been coughing. Patient is hypoxic quiring 3 L nasal cannula at this time. Denies any other complaints. Chest x-ray done in the ER shows acute/subacute pneumonitis superimposed on chronic interstitial lung disease. Echo shows EF 45 to 50% Medications/Allergies Home Medications ?Medication ?Instructions ?Recorded ?Confirmed ?Last Taken ?Type atorvastatin 20 mg tablet 20 mg PO EVERY OTHER DAY 12/03/23 05/08/24 05/06/24 History omeprazole 20 mg capsule,delayed 20 mg PO DAILY 12/03/23 05/08/24 05/07/24 History release metoprolol succinate 25 mg 12.5 mg (1/2 x 25 mg) PO DAILY #30 03/11/24 05/08/24 05/07/24 Rx tablet,extended release 24 hr tabs apixaban 2.5 mg tablet (Eliquis) 5 mg PO BID 05/08/24 05/08/24 05/07/24 History cefadroxil 500 mg capsule 500 mg PO Q12H 05/08/24 05/08/24 05/07/24 History hydrocodone 5 mg-acetaminophen 325 1 tab PO Q6H PRN Pain 05/08/24 05/08/24 Unknown History mg tablet meclizine 25 mg tablet 25 mg PO DAILY PRN Dizziness 05/08/24 05/08/24 Unknown History ondansetron HCl 8 mg tablet 8 mg PO Q8H PRN Nausea And Vomiting 05/08/24 05/08/24 Unknown History potassium chloride 10 mEq 10 meq PO QAM 05/08/24 05/08/24 05/07/24 History tablet,extended release tizanidine 4 mg tablet 4 mg PO Q8H PRN muscle spasms 05/08/24 05/08/24 Unknown History Allergies Allergy/AdvReac Type Severity Reaction Status Date / Time iodine Allergy rash Verified 12/03/23 11:05 Penicillins Allergy Rash Verified 12/03/23 11:01 sertraline Allergy Swelling Verified 12/03/23 11:05 PFSH Acute PFSH: Medical History GERD (gastroesophageal reflux disease) BPH (benign prostatic hyperplasia) Abnormal cystoscopy Pulmonary embolism Surgical History S/P cholecystectomy Social History Smoking and tobacco/nicotine status: former use of tobacco/nicotine Vitals/I&O/Wt Last Vital Signs Temp 98.1 F 05/08/24 07:50 Pulse 84 05/08/24 11:05 Resp 18 05/08/24 10:49 BP 152/88 05/08/24 13:34 Pulse Ox 93 05/08/24 13:34 O2 Del Method Room Air 05/08/24 13:34 Weight last 48 hrs Weight 71.668 kg Physical Exam Narrative: General: No acute distress, AO x3 HEENT: PERRLA, pupils bilaterally equal and reactive, pallors not present Chest: Normal vesicular breath sounds, no added sounds, equal good air entry bilaterally, requiring 3 to nasal cannula at this time. CVS: S1-S2 regular, no murmurs, no tachycardia, no gallops, no rubs Abdomen: Soft, nontender, no organomegaly, bowel sounds present Neuro: No focal deficits, no facial deformity, AO x3, Data 05/08/24 08:16 05/08/24 08:16 Micro: Microbiology 05/08/24 11:40 Blood Culture - Preliminary Blood SPECIMEN COLLECTED 05/08/24 10:48 Blood Culture - Preliminary Blood SPECIMEN COLLECTED A&P Assessment and plan (1) Afib: Qualifiers: Atrial fibrillation type: paroxysmal Qualified Code(s): I48.0 - Paroxysmal atrial fibrillation (2) Thrombocytopenia: (3) Pneumonia: (4) Acute hypoxemic respiratory failure: (5) Supplemental oxygen dependent: (6) Fever: (7) Immunosuppressed status: (8) Post-splenectomy: (9) Goals of care, counseling/discussion: Plan #Fever 101.7, pneumonia versus unknown origin #Acute hypoxia #Acute/subacute pneumonia #On rituximab, immunocompromise status #History of septic shock x 2 with strep bacteremia x 2 invasive. #Has had a UroLift procedure done in the past #History of A-fib #Post splenectomy status -Secondary immunocompromise status will place patient on broad-spectrum antibiotics at this time. Will place on vancomycin and cefepime, add dual pseudomonal coverage with levofloxacin ? Check blood cultures, sputum culture Gram stain, urine culture ? Will request records from [facility] going forward ? White count 14,000 which is most likely chronic for him as his white count 1 week ago at [facility] was also 14,000. It has been chronically elevated. ? Continue Eliquis metoprolol ? Patient might be on chronic suppression for cefadroxil 500 mg every 12 hours. Will need to reach out to his ID physician. ? We currently do not have infectious disease available at our hospital if patient deteriorates or has a continued need for ID consultation may consider transfer to [facility] pending clinical course. Family aware and prefer to go to [facility] however due to the weather they decided to come to [facility]. ? Potassium 3.0 today. Will replete with 40 oral. ? COVID flu RSV are negative. ? Check CT chest abdomen pelvis ? Patient's PICC line was removed 3 weeks ago and completed a 4-week course of antibiotics. Full code DVT prophylaxis: On Eliquis PDMP PDMP Reviewed: Not Reviewed Attestations Medical Necessity Statement*: Patient presented with fever, acute hypoxia requiring supplemental oxygen. Will need broad-spectrum antibiotics and cultures. Will need continued hospitalization for broad-spectrum antibiotics at this time secondary to splenectomy status and immunocompromise due to chemotherapy. Diagnoses Paroxysmal atrial fibrillation I48.0 Atrial fibrillation type: paroxysmal Thrombocytopenia D69.6 Pneumonia J18.9 Acute hypoxemic respiratory failure J96.01 Supplemental oxygen dependent Z99.81 Fever R50.9 Immunosuppressed status D84.9 Post-splenectomy Z90.81 Goals of care, counseling/discussion Z71.89
--- NOTE | 2024-05-08 15:19 | CTR_ITS ---
PROCEDURE INFORMATION: Exam: CT Chest Without Contrast; Diagnostic Exam date and time: 05/08/2024 4:10 PM Age: 73 years old Clinical indication: Fever; Prior surgery; Surgery date: 6+ months; Surgery type: Splenectomy; Additional info: Fever, chemo PT, HX of invasive bacteremia, recent dx of autoimmune hemolytic anemia, fever 104 and diarrhea x 1-2 days TECHNIQUE: Imaging protocol: Diagnostic computed tomography of the chest without contrast. Radiation optimization: All CT scans at this facility use at least one of these dose optimization techniques: automated exposure control; mA and/or kV adjustment per patient size (includes targeted exams where dose is matched to clinical indication); or iterative reconstruction. COMPARISON: CT angio chest w abd pel w con 03/02/2024 9:37 PM RADIATION DOSE METRICS: Total DLP (mGy-cm): 666.1 FINDINGS: Lungs: Right basilar consolidation. No masses. Pleural spaces: Unremarkable. No pneumothorax. No pleural effusion. Heart: Unremarkable. No cardiomegaly. No pericardial effusion. Lymph nodes: Mildly prominent mediastinal lymph nodes, likely reactive to the right basilar pneumonia. Vasculature: Unremarkable. No aortic aneurysm. Bones/joints: Unremarkable. No acute fracture. Soft tissues: Unremarkable. PROCEDURE INFORMATION: Exam: CT Abdomen And Pelvis Without Contrast Exam date and time: 05/08/2024 4:10 PM Age: 73 years old Clinical indication: Fever; Prior surgery; Surgery date: 6+ months; Surgery type: Splenectomy; Additional info: Fever, chemo PT, HX of invasive bacteremia, recent dx of autoimmune hemolytic anemia, fever 104 and diarrhea x 1-2 days TECHNIQUE: Imaging protocol: Computed tomography of the abdomen and pelvis without contrast. Radiation optimization: All CT scans at this facility use at least one of these dose optimization techniques: automated exposure control; mA and/or kV adjustment per patient size (includes targeted exams where dose is matched to clinical indication); or iterative reconstruction. COMPARISON: CT angio chest w abd pel w con 03/02/2024 9:37 PM RADIATION DOSE METRICS: Total DLP (mGy-cm): 666.1 FINDINGS: Liver: Normal. No mass. Gallbladder and biliary ducts: Cholecystectomy. No ductal dilation. Pancreas: Normal. No ductal dilation. Spleen: Normal. No splenomegaly. Adrenal glands: Normal. No mass. Kidneys and ureters: Several nonobstructing stones noted in both kidneys. No hydronephrosis. Stomach and bowel: Unremarkable. No obstruction. No mucosal thickening. Appendix: No evidence of appendicitis. Intraperitoneal space: Unremarkable. No free air. No significant fluid collection. Vasculature: Unremarkable. No abdominal aortic aneurysm. Lymph nodes: Unremarkable. No enlarged lymph nodes. Urinary bladder: Unremarkable as visualized. Reproductive: TURP changes. Bones/joints: No acute fracture. Soft tissues: Unremarkable. CT/[place] [id number] IMPRESSION: Right basilar pneumonia. IMPRESSION: No acute findings.
[2024-05-08 15:53] LABS: Procalcitonin 0.38 ng/mL (0-0.5)
[2024-05-08] MEDS: cefepime 2,000 mg SDV 2000 MG IVP (15:57)
[2024-05-08] MEDS: vancomycin 2,000 MG/400 ML PIGGYBACK 200 MG IV (15:57)
[2024-05-08 16:26] LABS: Lactic Sepsis W/Reflex 1.6 mmol/L (0.5-2.2)
[2024-05-08] MEDS: sodium chloride 0.9% 1,000 ML 75 ML IV (16:48)
--- NOTE | 2024-05-08 19:08 | PHA.VACGOAL ---
Vancomycin Goal - Goal Vancomycin Goal:: 15-20 mg/L Vancomycin Indication:: Pneumonia - Therapy Current therapy:: Cefepime, Other Antibiotic (Levofloxacin) Day of therpy:: Day []of [] . Actual body weight (kg): 71.668 kg - Data Labs: WBC 14.82 10^3/uL (3.29-11.43) H 05/08/24 08:16 RBC 5.10 10^6/uL (3.85-5.65) 05/08/24 08:16 Hgb 13.80 g/dL (11.27-16.99) 05/08/24 08:16 Hct 41.8 % (37-53) 05/08/24 08:16 MCV 82.0 fl (82-101) 05/08/24 08:16 MCH 27.1 pg (27-33) 05/08/24 08:16 MCHC 33.0 g/dL (30-55) 05/08/24 08:16 RDW 14.7 % (12.1-15.1) 05/08/24 08:16 Sodium 130 mmol/L (136-145) L 05/08/24 08:16 Potassium 3.0 mmol/L (3.5-5.1) L 05/08/24 08:16 Chloride 93 mmol/L (98-107) L 05/08/24 08:16 Carbon Dioxide 20 mmol/L (22-29) L 05/08/24 08:16 Anion Gap 20.0 (5-19) H 05/08/24 08:16 BUN 16 mg/dL (8-23) 05/08/24 08:16 Creatinine 1.2 mg/dL (0.7-1.2) 05/08/24 08:16 GFR Calculation Not Reportable 05/08/24 08:16 Treatment plan:: new consult Regimen:: New start vancomycin for pneumonia. Prior history of vancomycin found 03/05/24. Renal function has improved since this previous admission. Baseline Scr 1.4 to 2.1 mg/dL. Current admission Scr 1.2 mg/dL. Trough of 25.7 mg/L obtained with dose of 1000 mg q12h. Received 2000 mg load dose in ER. Started on maintenance dose of 750 mg q12h based on prior vancomycin history and improvement in renal function since last admission.
[2024-05-08] MEDS: ondansetron 2 mg/ML SDV 2 mL 4 MG IVP (19:50)
[2024-05-08] MEDS: apixaban 5 mg Tablet PO (19:50)
[2024-05-09] VITALS (7 sets, daily range): BP systolic 108–142; BP diastolic 61–76; PULSE 62–78; RESP 15–19; TEMP 36.4–37.1; O2SAT 95–97
[2024-05-09] MEDS: VANCOMYCIN ADD-Vantage 750 MG in 0.9% NaCl ADD-Vantage 250 ML 250 MG IV ×2 (03:13→15:35)
[2024-05-09] MEDS: cefepime 2,000 mg SDV 2000 MG IVP ×2 (03:13→15:36)
[2024-05-09] MEDS: potassium chloride ER 10 mEq Tablet PO (05:59)
[2024-05-09 06:10] LABS: Basophils # 0.1 10^3/uL (0.0-0.1); Basophils % 0.7 %; Eosinophils # 0.4 10^3/uL (0.0-0.8); Eosinophils % 2.3 %; Hematocrit 42.8 % (37-53); Lymphocytes # 1.6 10^3/uL (0.8-4.8); Lymphocytes % 9.8 %; Mean Corpuscular HGB Conc 32.2 g/dL (30-55); Mean Corpuscular Hemoglobin 26.6 pg (27-33); Mean Corpuscular Volume 82.6 fl (82-101); Mean Platelet Volume 11.2 fL (7.4-10.4); Monocytes # 1.6 10^3/uL (0.2-0.9); Monocytes % 9.8 %; Neutrophils % 72.4 %; Nucleated Red Blood Cells % 0 %; Platelet Count 421 10^3/cmm (157-399); Red Blood Count 5.18 10^6/uL (3.85-5.65); Red Cell Distribution Width 14.8 % (12.1-15.1); White Blood Count 16.05 10^3/uL (3.29-11.43)
[2024-05-09 06:29] LABS: INR 1.42 (0.8-1.2)
[2024-05-09 06:30] LABS: Alanine Aminotransferase 43 U/L (0-41); Albumin Level 3.1 g/dL (3.5-5.2); Alkaline Phosphatase 75 U/L (40-130); Anion Gap 22.1 (5-19); Aspartate Amino Transferase 54 U/L (0-40); Blood Urea Nitrogen 25 mg/dL (8-23); Calcium 8.7 mg/dL (8.5-10.5); Carbon Dioxide 21 mmol/L (22-29); Chloride 96 mmol/L (98-107); Creatinine Clr Calc Pharmacy 41.3908; Globulin 3.9 g/dL (1.3-4.6); Glucose 113 mg/dL (65-115); Magnesium 1.9 mg/dL (1.7-2.3); Osmolality Calculated 285 mOsm/kg (285-295); Potassium 4.1 mmol/L (3.5-5.1); Sodium 135 mmol/L (136-145); Total Bilirubin 0.6 mg/dL (0.15-1.2)
[2024-05-09] MEDS: sodium chloride 0.9% 1,000 ML 75 ML IV (08:22)
[2024-05-09] MEDS: pantoprazole DR 40 mg Tablet PO (08:22)
[2024-05-09] MEDS: apixaban 5 mg Tablet PO ×2 (08:22→18:09)
[2024-05-09] MEDS: metoprolol succinate ER (24 HR) 25 mg Tablet 12.5 MG PO (08:22)
--- NOTE | 2024-05-09 09:58 | PC.NURSE ---
This nurse approached bedside to administer medication. At this time this nurse mentioned him getting his home o2 setup, to which he responded I refused it. The assisted will only let me come at specific times and I don't wanna mess with it . At this time case management also entered the room and told Evelyn the same. This was expressed to the hospitalist as well.
--- NOTE | 2024-05-09 10:33 | PC.CHAP ---
Pastoral Care Encounter/Spiritual Assessment Type of Contact [] Declined invoicing specialist visit [] Patient/Family/Request visit [] Outpatient visit [] Follow-up visit [] Physician referral [] Code/Alert [] Routine visit [] Staff referral [] Actively dying [] Patient sleeping [] Family support [] [] Out of room [] Palliative care [] [x] Receiving care in room [] Pre-surgical visit [] Trauma [] Long length of stay [] ICU visit [] Other: Relational/Emotional Strength [] Patient feels connected with others/family/visitors/staff [] Distress [] Loneliness/isolation [] Abandonment Spirituality of Patient [] Person of Rocio [] Attends Yarsani of their Rocio [] Believes in Prayer [] Reads Bible or Catholic materials [] There are Spiritual issues to be addressed 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 Interventions [] Prayer [] Active listening [] Non-anxious presence [] Spiritual/emotional support [] Crisis/trauma care [] Spiritual counseling [] Bereavement support [] Provided bereavement packet [] Provided Bible/devotional materials [] Provided toy/stuffed animal, coloring book to patient or family member [] Provided Communion [] Anointing/[place] [] Salvation [] Completed spiritual assessment [] Other: Impact on Illness or Injury [] Angry [] Fearful [] Anxious [] Often cries [] Exhaustion [] Unable to work [] Unable to attend confucianist [] Unable to walk/stand [] Unable to read [] Unable to drive [] Unable to eat/drink [] Unable to sleep [] Unable to be with family [] Patient intubated [] Other: Summary Time spent with patient
--- NOTE | 2024-05-09 11:47 | PM.PN ---
Subjective Subjective: Seen this morning. Febrile overnight. States he is feeling better however still requiring oxygen 2 L nasal cannula at this time. Vitals/I&O/Wt Last Vital Signs Temp 97.7 F 05/09/24 11:33 Pulse 67 05/09/24 11:33 Resp 19 H 05/09/24 11:33 BP 108/61 05/09/24 11:33 Pulse Ox 96 05/09/24 11:33 O2 Del Method Nasal Cannula 05/09/24 11:33 O2 Flow Rate 3 05/09/24 08:00 05/08/24 05/09/24 05/09/24 22:59 06:59 14:59 Intake Total 620 / 620 1155 / 1775 455 / 455 Output Total 200 / 200 360 / 360 Balance 620 / 620 955 / 1575 95 / 95 Weight last 48 hrs Weight 70.443 kg Weight 70.443 kg Weight 71.668 kg Physical Exam Narrative: General: No acute distress, AO x3 HEENT: PERRLA, pupils bilaterally equal and reactive, pallors not present Chest: Normal vesicular breath sounds, no added sounds, equal good air entry bilaterally, requiring 3 to nasal cannula at this time. CVS: S1-S2 regular, no murmurs, no tachycardia, no gallops, no rubs Abdomen: Soft, nontender, no organomegaly, bowel sounds present Neuro: No focal deficits, no facial deformity, AO x3, Data 05/09/24 05:25 05/09/24 05:25 Micro: Microbiology 05/08/24 10:48 Blood Culture - Preliminary Blood NEGATIVE TO DATE 05/08/24 13:20 Urine Culture - Preliminary Urine Catheterized 05/08/24 11:40 Blood Culture - Preliminary Blood SPECIMEN COLLECTED A&P Assessment and plan (1) Afib: Qualifiers: Atrial fibrillation type: paroxysmal Qualified Code(s): I48.0 - Paroxysmal atrial fibrillation (2) Thrombocytopenia: (3) Pneumonia: (4) Acute hypoxemic respiratory failure: (5) Supplemental oxygen dependent: (6) Fever: (7) Immunosuppressed status: (8) Post-splenectomy: (9) Goals of care, counseling/discussion: Plan #Fever 101.7, pneumonia versus unknown origin #Acute hypoxia #Acute/subacute pneumonia #On rituximab, immunocompromise status #History of septic shock x 2 with strep bacteremia x 2 invasive. #Has had a UroLift procedure done in the past #History of A-fib #Post splenectomy status -Secondary immunocompromise status will place patient on broad-spectrum antibiotics at this time. Will place on vancomycin and cefepime, add dual pseudomonal coverage with levofloxacin ? Check blood cultures, sputum culture Gram stain, urine culture ? Will request records from [facility] going forward ? White count 14,000 which is most likely chronic for him as his white count 1 week ago at [facility] was also 14,000. It has been chronically elevated. ? Continue Eliquis metoprolol ? Patient might be on chronic suppression for cefadroxil 500 mg every 12 hours. Will need to reach out to his ID physician. ? We currently do not have infectious disease available at our hospital if patient deteriorates or has a continued need for ID consultation may consider transfer to [facility] pending clinical course. Family aware and prefer to go to [facility] however due to the weather they decided to come to [facility]. ? Potassium 3.0 today. Will replete with 40 oral. ? COVID flu RSV are negative. ? Check CT chest abdomen pelvis ? Patient's PICC line was removed 3 weeks ago and completed a 4-week course of antibiotics. Full code DVT prophylaxis: On Eliquis 05/09/2024 GIAN: Creatinine 1.6 today. WBC count 16,000. Was febrile overnight at 100.3. Continue antibiotics at this time. Await cultures. Patient does have right basilar pneumonia. Check speech therapy evaluation. Patient may have had aspirated. Discussed with . She states she already cuts episode at home. She says he does snore a lot and at times mouth does feel up with saliva. She would not be surprised if he actually did aspirate. Consult nephrology. PDMP PDMP Reviewed: Not Reviewed Attestations Medical Necessity Statement*: Patient presented with fever, acute hypoxia requiring supplemental oxygen. Will need broad-spectrum antibiotics and cultures. Will need continued hospitalization for broad-spectrum antibiotics at this time secondary to splenectomy status and immunocompromise due to chemotherapy. Diagnoses Paroxysmal atrial fibrillation I48.0 Atrial fibrillation type: paroxysmal Thrombocytopenia D69.6 Pneumonia J18.9 Acute hypoxemic respiratory failure J96.01 Supplemental oxygen dependent Z99.81 Fever R50.9 Immunosuppressed status D84.9 Post-splenectomy Z90.81 Goals of care, counseling/discussion Z71.89
--- NOTE | 2024-05-09 13:51 | PM.CONSULT ---
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 He is currently on Rituximab, autoimmune hemolytic anemia for which patient is on a high dose steroid taper, history of DVT admitted to the hospital on 03/03/24 with septic shock and Streptococcus bovis bacteremia. Patient has a history of A-fib, Echocardiogram Showed LVEF of 45 to 50%, moderate eccentric mitral regurgitation.+ type 2 DM. Patient states he chronically has intermittent diarrhea 1-2 episodes per day. C. difficile has been negative in the past. This may be possibly secondary to antibiotic associated diarrhea. He was admitted to the hospital yesterday with complaints of fevers to 101.7 f. he was started on vanco and cefepime. Cr heidi overnight from 1.2 mg/dl to 1,6 mg/dl and renal was called to consult. In February admission w/ septic shock- pt developed GIAN- peak cr was 2.1 mg/dl. Cr improved to 1.5 mg/dl. Medications/Allergies Home Medications ?Medication ?Instructions ?Recorded ?Confirmed ?Last Taken ?Type atorvastatin 20 mg tablet 20 mg PO EVERY OTHER DAY 12/03/23 05/08/24 05/06/24 History omeprazole 20 mg capsule,delayed 20 mg PO DAILY 12/03/23 05/08/24 05/07/24 History release metoprolol succinate 25 mg 12.5 mg (1/2 x 25 mg) PO DAILY #30 03/11/24 05/08/24 05/07/24 Rx tablet,extended release 24 hr tabs apixaban 2.5 mg tablet (Eliquis) 5 mg PO BID 05/08/24 05/08/24 05/07/24 History cefadroxil 500 mg capsule 500 mg PO Q12H 05/08/24 05/08/24 05/07/24 History hydrocodone 5 mg-acetaminophen 325 1 tab PO Q6H PRN Pain 05/08/24 05/08/24 Unknown History mg tablet meclizine 25 mg tablet 25 mg PO DAILY PRN Dizziness 05/08/24 05/08/24 Unknown History ondansetron HCl 8 mg tablet 8 mg PO Q8H PRN Nausea And Vomiting 05/08/24 05/08/24 Unknown History potassium chloride 10 mEq 10 meq PO QAM 05/08/24 05/08/24 05/07/24 History tablet,extended release tizanidine 4 mg tablet 4 mg PO Q8H PRN muscle spasms 05/08/24 05/08/24 Unknown History Allergies Allergy/AdvReac Type Severity Reaction Status Date / Time iodine Allergy rash Verified 12/03/23 11:05 Penicillins Allergy Rash Verified 12/03/23 11:01 sertraline Allergy Swelling Verified 12/03/23 11:05 Current Medications Generic Name Dose Route Start Last Admin Trade Name Freq PRN Reason Stop Dose Admin Apixaban 5 mg 05/08/24 18:00 05/09/24 08:22 Apixaban 5 Mg Tablet PO 5 mg BID ENIO Administration Cefepime HCl 2,000 mg 05/08/24 15:15 05/09/24 03:13 Cefepime 2,000 Mg Sdv IVP 2,000 mg Q12H ENIO Administration Protocol Sodium Chloride 1,000 mls @ 75 mls/hr 05/08/24 15:30 05/09/24 08:22 Sodium Chloride 0.9% IV 75 mls/hr .[id number] ENIO Administration Vancomycin HCl 750 mg/ Sodium 250 mls @ 250 mls/hr 05/09/24 04:00 05/09/24 04:46 Chloride IV Infused Q12H ENIO Infusion Metoprolol Succinate 12.5 mg 05/09/24 09:00 05/09/24 08:22 Metoprolol Succinate Er (24 Hr) 25 Mg Tablet PO 12.5 mg DAILY ENIO Administration Ondansetron HCl 4 mg 05/08/24 15:19 05/08/24 19:50 Ondansetron 2 Mg/Ml Sdv 2 Ml IVP 4 mg Q8H PRN Administration vomiting, or N/V if npo Pantoprazole Sodium 40 mg 05/09/24 09:00 05/09/24 08:[address] 40 Mg Tablet PO 40 mg DAILY ENIO Administration Potassium Chloride 10 meq 05/09/24 06:00 05/09/24 05:59 Potassium Chloride Er 10 Meq Tablet PO 10 meq QAM ENIO Administration PFSH Acute PFSH: Medical History GERD (gastroesophageal reflux disease) BPH (benign prostatic hyperplasia) Abnormal cystoscopy Pulmonary embolism Surgical History S/P cholecystectomy Social History Smoking and tobacco/nicotine status: former use of tobacco/nicotine Vitals/I&O/Wt Last Vital Signs Temp 97.7 F 05/09/24 11:33 Pulse 67 05/09/24 11:33 Resp 19 H 05/09/24 11:33 BP 108/61 05/09/24 11:33 Pulse Ox 96 05/09/24 11:33 O2 Del Method Nasal Cannula 05/09/24 11:33 O2 Flow Rate 3 05/09/24 08:00 05/08/24 05/09/24 05/09/24 22:59 06:59 14:59 Intake Total 620 / 620 1155 / 1775 815 / 815 Output Total 200 / 200 360 / 360 Balance 620 / 620 955 / 1575 455 / 455 Weight last 48 hrs Weight 70.443 kg Weight 70.443 kg Weight 71.668 kg Physical Exam Narrative: comfortable, TM 100f, vs noted heent- nc/at, eomi, anicteric neck -no jvp lungs clear heart reg abd soft, nt, nd, + bs ext no edema neuro a,a, o x 3 Data 05/09/24 05:25 05/09/24 05:25 Micro: Microbiology 05/08/24 11:40 Blood Culture - Preliminary Blood NEGATIVE TO DATE 05/08/24 10:48 Blood Culture - Preliminary Blood NEGATIVE TO DATE 05/08/24 13:20 Urine Culture - Preliminary Urine Catheterized A&P Assessment and plan (1) GIAN (acute kidney injury): 73 year old male with lymphoma, 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 He is currently on Rituximab, autoimmune hemolytic anemia for which patient is on a high dose steroid taper, history of DVT admitted to the hospital on 03/03/24 with septic shock and Streptococcus bovis bacteremia. Patient has a history of A-fib, Echocardiogram Showed LVEF of 45 to 50%, moderate eccentric mitral regurgitation.+ type 2 DM. Patient is here w/ weakness, nausea, vomiting, fevers. 1. recurrent GIAN- in February 2024- cr peaked at 2.1 mg/dl. improved w/ fluids abx and steroids. -cr of 1.1- 1.2 mg/dl appears to be his baseline renal fxn- likely CKD stage 3a. - diff dx is prerenal azotemia, atn, no obstruction on CT scan -can be AIN from recurrent abx- however, cr was 1.2 mg/dl on 05-08-24 and heidi today to 1.6 mg/dl u/a w/ 2+ protein, 6-10 rbc, hyaline cast- if renal fxn does not improve, then consider sending serologies -check ck- unlikely rhabdomyolysis -monitor on ivf. hyaline casts on u/a is c/w prerenal azotemia -he denies NSAID use PPI can cause AIN 2. mild inc LFT's- check ck. or can be shocked liver from hypotension 3. pt has inc AGMA- will change ivf from NS to LR 4. hyponatremia- likely prerenal is improving please check vanco level and keep trough under 19 seen and examined using audio/ visual equipment- telehealth visit aided by a RN pt consented to telehealth Plan as above- ivf, renal dose meds. PDMP PDMP Reviewed: Not Reviewed Consult Attestations Medical Necessity Statement: gian, fevers Time Spent in Patient Care: Greater than 35 minutes (>than 50% of time spent in counselling and/or direct pt care on unit). Coding Level of Care Code Acute Code for [facility] Fwd Diagnoses GIAN (acute kidney injury) N17.9
[2024-05-09] MEDS: lactated ringers 1,000 ML 100 ML IV (15:36)
[2024-05-09 17:11] LABS: Uric Acid 4.6 mg/dL (3.4-7.0)
[2024-05-09 17:23] LABS: Complement C3 145 mg/dL (90-180); Creatine Phosphokinase 37 U/L (39-308)
[2024-05-09 18:41] LABS: Potassium, Radom Urine 19 mmol/L; Urine Creatinine 49 mg/dL (39-259); Urine Random Chloride 22 mmol/L; Urine Random Sodium 43 mmol/L
[2024-05-09 18:42] LABS: Chloride Urine Random 22 mmol/L
[2024-05-09 18:45] LABS: Urine Random Sodium 43 mmol/L
[2024-05-09 21:12] LABS: Hepatitis C Virus Antibody Non-Reactive (Nonreactive)
[2024-05-10] VITALS (7 sets, daily range): BP systolic 106–135; BP diastolic 61–78; PULSE 68–73; RESP 15–18; TEMP 36.4–36.6; O2SAT 94–98; BMI 21.7
[2024-05-10] MEDS: cefepime 2,000 mg SDV 2000 MG IVP (02:30)
[2024-05-10 04:36] LABS: Basophils # 0.1 10^3/uL (0.0-0.1); Basophils % 0.4 %; Eosinophils # 2.2 10^3/uL (0.0-0.8); Eosinophils % 18.4 %; Hematocrit 38.1 % (37-53); Lymphocytes # 1.6 10^3/uL (0.8-4.8); Lymphocytes % 13.6 %; Mean Corpuscular HGB Conc 33.1 g/dL (30-55); Mean Corpuscular Hemoglobin 27.3 pg (27-33); Mean Corpuscular Volume 82.6 fl (82-101); Mean Platelet Volume 11.3 fL (7.4-10.4); Monocytes # 1.5 10^3/uL (0.2-0.9); Monocytes % 12.7 %; Neutrophils # 6.21 10^3/uL (1.8-7.7); Neutrophils % 52.1 %; Nucleated Red Blood Cells % 0 %; Platelet Count 427 10^3/cmm (157-399); Red Blood Count 4.61 10^6/uL (3.85-5.65); Red Cell Distribution Width 14.9 % (12.1-15.1); White Blood Count 11.95 10^3/uL (3.29-11.43)
[2024-05-10 05:02] LABS: Anion Gap 15.5 (5-19); Blood Urea Nitrogen 27 mg/dL (8-23); Calcium 8.7 mg/dL (8.5-10.5); Carbon Dioxide 21 mmol/L (22-29); Chloride 105 mmol/L (98-107); Creatinine Clr Calc Pharmacy 41.3908; Glucose 130 mg/dL (65-115); Magnesium 1.8 mg/dL (1.7-2.3); Osmolality Calculated 293 mOsm/kg (285-295); Potassium 3.5 mmol/L (3.5-5.1); Sodium 138 mmol/L (136-145)
[2024-05-10 05:17] LABS: 25 Hydroxy Vitamin D 16 ng/mL (30-100)
[2024-05-10] MEDS: lactated ringers 1,000 ML 100 ML IV (05:21)
[2024-05-10] MEDS: potassium chloride ER 10 mEq Tablet PO (05:21)
[2024-05-10 05:44] LABS: PROTEIN, TOTAL 5.8 g/dL (6.1-8.1)
[2024-05-10 07:03] LABS: MRSA PCR OZH (swab) NOT DETECTED (Negative)
[2024-05-10] MEDS: metoprolol succinate ER (24 HR) 25 mg Tablet 12.5 MG PO (09:34)
[2024-05-10] MEDS: apixaban 5 mg Tablet PO (09:35)
[2024-05-10] MEDS: pantoprazole DR 40 mg Tablet PO (09:35)
[2024-05-10] MEDS: atorvastatin 40 mg Tablet 20 MG PO (09:35)
[2024-05-10] MEDS: levofloxacin-dextrose 5 % 750 MG/150 ML PREMIX 100 MG IV (13:57)
--- NOTE | 2024-05-10 14:13 | P.PN_ITS ---
Vitals/I&O/Wt Last Vital Signs Temp 97.7 F 05/10/24 12:00 Pulse 71 05/10/24 12:00 Resp 18 05/10/24 12:00 BP 135/78 05/10/24 12:00 Pulse Ox 95 05/10/24 12:00 O2 Del Method Room Air 05/10/24 12:00 O2 Flow Rate 3 05/09/24 08:00 05/09/24 05/10/24 05/10/24 22:59 06:59 14:59 Intake Total 1316.25 / 2131.25 1125 / 3256.25 720 / 720 Output Total 225 / 585 700 / 1285 Balance 1091.25 / 1546.25 425 / 1971.25 720 / 720 Weight last 48 hrs Weight 70.579 kg Weight 70.443 kg Weight 70.443 kg Physical Exam 2 Narrative: General: No acute distress, AO x3 HEENT: PERRLA, pupils bilaterally equal and reactive, pallors not present Chest: Normal vesicular breath sounds, no added sounds, equal good air entry bilaterally, requiring 3 to nasal cannula at this time. CVS: S1-S2 regular, no murmurs, no tachycardia, no gallops, no rubs Abdomen: Soft, nontender, no organomegaly, bowel sounds present Neuro: No focal deficits, no facial deformity, AO x3, Data 05/10/24 04:10 05/10/24 04:10 Micro: Microbiology 05/08/24 11:40 Blood Culture - Preliminary Blood NEGATIVE TO DATE 05/08/24 10:48 Blood Culture - Preliminary Blood NEGATIVE TO DATE 05/08/24 13:20 Urine Culture - Preliminary Urine Catheterized A&P Assessment and plan (1) Afib: Qualifiers: Atrial fibrillation type: paroxysmal Qualified Code(s): I48.0 - Paroxysmal atrial fibrillation (2) Thrombocytopenia: (3) Pneumonia: (4) Acute hypoxemic respiratory failure: (5) Supplemental oxygen dependent: (6) Fever: (7) Immunosuppressed status: (8) Post-splenectomy: (9) Goals of care, counseling/discussion: Plan #Fever 101.7, pneumonia versus unknown origin #Acute hypoxia #Acute/subacute pneumonia #On rituximab, immunocompromise status #History of septic shock x 2 with strep bacteremia x 2 invasive. #Has had a UroLift procedure done in the past #History of A-fib #Post splenectomy status -Secondary immunocompromise status will place patient on broad-spectrum antibiotics at this time. Will place on vancomycin and cefepime, add dual pseudomonal coverage with levofloxacin ? Check blood cultures, sputum culture Gram stain, urine culture ? Will request records from [facility] going forward ? White count 14,000 which is most likely chronic for him as his white count 1 week ago at [facility] was also 14,000. It has been chronically elevated. ? Continue Eliquis metoprolol ? Patient might be on chronic suppression for cefadroxil 500 mg every 12 hours. Will need to reach out to his ID physician. ? We currently do not have infectious disease available at our hospital if patient deteriorates or has a continued need for ID consultation may consider transfer to [facility] pending clinical course. Family aware and prefer to go to [facility] however due to the weather they decided to come to [facility]. ? Potassium 3.0 today. Will replete with 40 oral. ? COVID flu RSV are negative. ? Check CT chest abdomen pelvis ? Patient's PICC line was removed 3 weeks ago and completed a 4-week course of antibiotics. Full code DVT prophylaxis: On Eliquis 05/09/2024 GIAN: Creatinine 1.6 today. WBC count 16,000. Was febrile overnight at 100.3. Continue antibiotics at this time. Await cultures. Patient does have right basilar pneumonia. Check speech therapy evaluation. Patient may have had aspirated. Discussed with . She states she already cuts episode at home. She says he does snore a lot and at times mouth does feel up with saliva. She would not be surprised if he actually did aspirate. Consult nephrology. 05/10/2024 Gotten 1.6 today. WBC count has come down to 11.95. He is now on room air lying flat in bed. Subjectively feeling better. Speech therapy also evaluated the patient. Patient only has 4 teeth in his mouth and is unable to chew properly. Dysphagia level 6 diet recommended at this time. MRSA nares negative. Vancomycin discontinued. Linezolid was also ordered empirically however since MRSA nares is negative low suspicion of MRSA pneumonia at this time. I will discontinue linezolid as well. Discussed with patient regarding a home oxygen evaluation and to discuss with nephrology going forward. May consider discharge home tomorrow. Patient's blood cultures urine culture negative to date. Sputum culture not obtained since patient is not expectorating much sputum at this time. Plan to send him home on levofloxacin at time of discharge. PDMP PDMP Reviewed: Not Reviewed Attestations 2 Medical Necessity Statement*: Patient presented with fever, acute hypoxia requiring supplemental oxygen. Will need broad-spectrum antibiotics and cultures. Will need continued hospitalization for broad-spectrum antibiotics at this time secondary to splenectomy status and immunocompromise due to chemotherapy. Diagnoses Paroxysmal atrial fibrillation I48.0 Atrial fibrillation type: paroxysmal Thrombocytopenia D69.6 Pneumonia J18.9 Acute hypoxemic respiratory failure J96.01 Supplemental oxygen dependent Z99.81 Fever R50.9 Immunosuppressed status D84.9 Post-splenectomy Z90.81 Goals of care, counseling/discussion Z71.89
[2024-05-10 14:30] LABS: KAPPA LIGHT CHAIN, FREE, SERUM 79.4 mg/L (3.3-19.4); KAPPA/LAMBDA LIGHT CHAINS FREE 4.29 (0.26-1.65); LAMBDA LIGHT CHAIN, FREE, SERU 18.5 mg/L (5.7-26.3)
[2024-05-10 14:30] LABS: Anti-Nuclear Antibody Screen NEGATIVE (NEGATIVE)
--- NOTE | 2024-05-10 17:03 | PM.DCS ---
Discharge Providers Date of Admission: 05/09/24 10:04 Date of Discharge: May 10, 2024 Attending Provider at Admission: Addis Nath MD Attending Provider at Discharge: Stacey Nunn MD Primary Care Provider: Mau Tucker DO Diagnoses at Discharge Discharge Diagnosis (1) Afib: Status: Acute Qualifiers: Atrial fibrillation type: paroxysmal Qualified Code(s): I48.0 - Paroxysmal atrial fibrillation (2) Thrombocytopenia: Status: Acute (3) Pneumonia: Status: Acute (4) Acute hypoxemic respiratory failure: Status: Resolved (5) Supplemental oxygen dependent: Status: Resolved (6) Fever: Status: Resolved (7) Immunosuppressed status: Status: Acute (8) Post-splenectomy: Status: Acute (9) Goals of care, counseling/discussion: Status: Acute Reason for Visit Reason for Visit: Fever Hospital Course Hospital Course Patient was admitted for a fever secondary to pneumonia and right base. Speech swallow evaluation was performed. Patient able to eat I did not show any signs of aspiration to the speech therapist. He is edentulous. He is on soft bite-size food at home. His cultures have been negative to date. Sputum culture not obtained secondary to no expectoration. Blood cultures negative to date. MRSA nares negative. Initially vancomycin was given and switch to linezolid however both discontinued going forward. He was kept on Zosyn during hospitalization secondary to status post splenectomy and chemo patient. He is immunocompromise. He went back to room air and was discharged home on levofloxacin to complete the course. Recommend to continue cefadroxil chronic suppression. Patient was recommended to follow-up with oncology and ID going forward as an outpatient. There was also suspicion of GIAN during hospitalization with creatinine 1.6 for which nephrology was consulted however we close she looks at all of his creatinine trend in the past. His creatinine is actually at baseline. He will be discharged home in stable condition at this time. Discussed with and patient at bedside were in agreement. Physical Exam Narrative: General: No acute distress, AO x3 HEENT: PERRLA, pupils bilaterally equal and reactive, pallors not present Chest: Normal vesicular breath sounds, no added sounds, equal good air entry bilaterally, currently on room air. CVS: S1-S2 regular, no murmurs, no tachycardia, no gallops, no rubs Abdomen: Soft, nontender, no organomegaly, bowel sounds present Neuro: No focal deficits, no facial deformity, AO x3, Discharge Data Studies Completed and Pending Completed Studies During Hospitalization Category Date Time Status CT chest abdomen pelvis [[place] [id number] Cat Scan 05/08/24 15:19 Completed ] Urgent XR chest 1V portable [id number] Stat Exams 05/08/24 07:36 Completed Pending at discharge Category Date Time Status Blood Culture Stat Lab 05/08/24 11:40 Results Immunofixation Serum Routine Lab 05/09/24 16:17 Received Serum Protien Electrophoresis [Total Protein Lab 05/09/24 16:17 Results Electrophoresis] Routine Sputum Culture and Gram Stain Stat Lab 05/08/24 15:16 Uncollected Vitamin D 1,25 Dihydroxy Routine Lab 05/09/24 16:17 Received Radiology Impressions Chest X-Ray 05/08/24 07:36 IMPRESSION: Possibly an acute/subacute pneumonitis superimposed on chronic interstitial lung disease. Chest/Abdomen/Pelvis CT 05/08/24 15:19 IMPRESSION: Right basilar pneumonia. IMPRESSION: No acute findings. Laboratory Results WBC 11.95 10^3/uL (3.29-11.43) H 05/10/24 04:10 RBC 4.61 10^6/uL (3.85-5.65) 05/10/24 04:10 Hgb 12.60 g/dL (11.27-16.99) 05/10/24 04:10 Hct 38.1 % (37-53) 05/10/24 04:10 MCV 82.6 fl (82-101) 05/10/24 04:10 MCH 27.3 pg (27-33) 05/10/24 04:10 MCHC 33.1 g/dL (30-55) 05/10/24 04:10 RDW 14.9 % (12.1-15.1) 05/10/24 04:10 Plt Count 427 10^3/cmm (157-399) H 05/10/24 04:10 MPV 11.3 fL (7.4-10.4) H 05/10/24 04:10 Neut % (Auto) 52.1 % 05/10/24 04:10 Lymph % (Auto) 13.6 % 05/10/24 04:10 [place] % (Auto) 12.7 % 05/10/24 04:10 Eos % (Auto) 18.4 % 05/10/24 04:10 Baso % (Auto) 0.4 % 05/10/24 04:10 Neut # (Auto) 6.21 10^3/uL (1.8-7.7) 05/10/24 04:10 Lymph # (Auto) 1.6 10^3/uL (0.8-4.8) 05/10/24 04:10 [place] # (Auto) 1.5 10^3/uL (0.2-0.9) H 05/10/24 04:10 Eos # (Auto) 2.2 10^3/uL (0.0-0.8) H 05/10/24 04:10 Baso # (Auto) 0.1 10^3/uL (0.0-0.1) 05/10/24 04:10 Nucleated RBC % (auto) 0 % 05/10/24 04:10 Nucleated RBCs # 0.0 /100WBC 05/10/24 04:10 PT 18.30 SECONDS (12.1-14.9) H 05/09/24 05:25 INR 1.42 (0.8-1.2) H 05/09/24 05:25 Sodium 138 mmol/L (136-145) 05/10/24 04:10 Potassium 3.5 mmol/L (3.5-5.1) 05/10/24 04:10 Chloride 105 mmol/L (98-107) 05/10/24 04:10 Carbon Dioxide 21 mmol/L (22-29) L 05/10/24 04:10 Anion Gap 15.5 (5-19) 05/10/24 04:10 BUN 27 mg/dL (8-23) H 05/10/24 04:10 Creatinine 1.6 mg/dL (0.7-1.2) H 05/10/24 04:10 GFR Calculation Not Reportable 05/10/24 04:10 Glucose 130 mg/dL (65-115) H 05/10/24 04:10 Calculated Osmolality 293 mOsm/kg (285-295) 05/10/24 04:10 Lactic Acid 1.6 mmol/L (0.5-2.2) 05/08/24 15:45 Uric Acid 4.6 mg/dL (3.4-7.0) 05/09/24 16:10 Calcium 8.7 mg/dL (8.5-10.5) 05/10/24 04:10 Magnesium 1.8 mg/dL (1.7-2.3) 05/10/24 04:10 Total Bilirubin 0.6 mg/dL (0.15-1.2) 05/09/24 05:25 AST 54 U/L (0-40) H 05/09/24 05:25 ALT 43 U/L (0-41) H 05/09/24 05:25 Alkaline Phosphatase 75 U/L (40-130) 05/09/24 05:25 Creatine Kinase 37 U/L (39-308) L 05/09/24 16:10 Total Protein 5.8 g/dL (6.1-8.1) L 05/09/24 16:17 Albumin 3.1 g/dL (3.5-5.2) L 05/09/24 05:25 Globulin 3.9 g/dL (1.3-4.6) 05/09/24 05:25 25-OH Vitamin D Total 16 ng/mL (30-100) L 05/10/24 04:10 Procalcitonin 0.38 ng/mL (0-0.5) 05/08/24 08:16 Urine Color Yellow (Yellow) 05/08/24 13:20 Urine Appearance Clear (CLEAR) 05/08/24 13:20 Urine pH 6.5 (5-7) 05/08/24 13:20 Ur Specific [place] 1.020 (1.005-1.030) 05/08/24 13:20 Urine Protein 2+ (Negative) A 05/08/24 13:20 Urine Glucose (UA) Negative (Normal) 05/08/24 13:20 Urine Ketones Negative (Negative) 05/08/24 13:20 Urine Blood Non-haemolysed trace (Negative) 05/08/24 13:20 Urine Nitrate Negative (Negative) 05/08/24 13:20 Urine Bilirubin Negative (Negative) 05/08/24 13:20 Urine Urobilinogen 1.0 mg/dL (Negative) 05/08/24 13:20 Ur Leukocyte Esterase Negative (Negative) 05/08/24 13:20 Urine RBC 6-10 /hpf (0-2) 05/08/24 13:20 Urine WBC 0-5 /hpf (0-5) 05/08/24 13:20 Ur Squamous Epith Cells 0-5 /hpf (0-5) 05/08/24 13:20 Amorphous Sediment Not Reportable 05/08/24 13:20 Urine Bacteria None seen /hpf (NONE) 05/08/24 13:20 Hyaline Casts 2.46 /lpf 05/08/24 13:20 Ur Random Sodium 43 mmol/L 05/09/24 16:45 Ur Random Sodium 43 mmol/L 05/09/24 16:45 Ur Random Potassium 19 mmol/L 05/09/24 16:45 Ur Random Chloride 22 mmol/L 05/09/24 16:45 Ur Random Chloride 22 mmol/L 05/09/24 16:45 Urine Creatinine 49 mg/dL (39-259) 05/09/24 16:45 Nasal MRSA (PCR) Not detected (Negative) 05/10/24 05:45 CHUCHO Screen Negative (NEGATIVE) 05/09/24 16:17 Complement C3 145 mg/dL (90-180) 05/09/24 16:10 Complement C4 43 mg/dL (10-40) H 05/09/24 16:10 Free [place] Light Chains 79.4 mg/L (3.3-19.4) H 05/09/24 16:10 Free [place] Light Chain 18.5 mg/L (5.7-26.3) 05/09/24 16:10 Free [place]/Lambda Ratio 4.29 (0.26-1.65) H 05/09/24 16:10 Coronavirus (PCR) Negative (Negative) 05/08/24 10:40 Hepatitis C Antibody Non-reactive (Nonreactive) 05/09/24 16:10 Influenza A (PCR) Negative (Negative) 05/08/24 10:40 Influenza Type B (PCR) Negative (Negative) 05/08/24 10:40 RSV (PCR) Negative (Negative) 05/08/24 10:40 Vitals Last Vital Signs Temp 97.7 F 05/10/24 12:00 Pulse 73 05/10/24 16:24 Resp 18 05/10/24 16:24 BP 132/77 05/10/24 16:24 Pulse Ox 98 05/10/24 16:49 O2 Del Method Room Air 05/10/24 16:24 O2 Flow Rate 3 05/09/24 08:00 Discharge Plan Discharge Patient Disposition: Home Condition: Stable Prescriptions: New levofloxacin 750 mg tablet 750 mg PO DAILY 4 Days Qty: 4 0RF Continued omeprazole 20 mg capsule,delayed release(DR/EC) 20 mg PO DAILY atorvastatin 20 mg tablet 20 mg PO EVERY OTHER DAY tizanidine 4 mg tablet 4 mg PO Q8H PRN (Reason: muscle spasms) hydrocodone-acetaminophen 5-325 mg tablet 1 tab PO Q6H PRN (Reason: Pain) ondansetron HCl 8 mg tablet 8 mg PO Q8H PRN (Reason: Nausea And Vomiting) potassium chloride 10 mEq tablet extended release 10 meq PO QAM cefadroxil 500 mg capsule 500 mg PO Q12H meclizine 25 mg Tablet 25 mg PO DAILY PRN (Reason: Dizziness) Eliquis 2.5 mg tablet 5 mg PO BID metoprolol succinate 25 mg tablet extended release 24 hr 12.5 mg PO DAILY Qty: 30 0RF Discharge Orders: Discharge Order (Routine); Ordered 05/10/24 Ordered By: Stacey Nunn Referrals: Mau Tucker DO [Primary Care Provider] - 05/15/24 1:30 pm (APPOINTMENT WITH [facility]) Discharge Diet: Cardiac Discharge Activity: Resume usual activity Patient Instructions: Levofloxacin (By mouth), Community Acquired Pneumonia (DC) Activity Restrictions/Additional Instructions: continue with PT as outpatient Discharge Attestations Time Spent in Discharge Care*: greater than 30 min Quality Metrics Clinical Quality Measures [ No reported AMI, CVA or VTE this stay] Coding Level of Care Code Acute Code for Chg Fwd Diagnoses Paroxysmal atrial fibrillation I48.0 Atrial fibrillation type: paroxysmal Thrombocytopenia D69.6 Pneumonia J18.9 Acute hypoxemic respiratory failure J96.01 Supplemental oxygen dependent Z99.81 Fever R50.9 Immunosuppressed status D84.9 Post-splenectomy Z90.81 Goals of care, counseling/discussion Z71.89
--- NOTE | 2024-05-10 17:09 | PC.NURSE ---
Discharge Note Patient discharged to home via private vehicle accompanied by . Discharge instructions reviewed with patient and/or leasing representative. Mobile pharmacy medications and/or prescriptions provided. Belongings/home medications returned.
--- NOTE | 2024-05-10 18:27 | PM.PN ---
Subjective Subjective: no new complaints Medications: Reviewed: Yes Vitals/I&O/Wt Last Vital Signs Temp 97.7 F 05/10/24 18:22 Pulse 71 05/10/24 18:22 Resp 18 05/10/24 18:22 BP 135/78 05/10/24 18:22 Pulse Ox 95 05/10/24 18:22 O2 Del Method Room Air 05/10/24 16:24 O2 Flow Rate 3 05/09/24 08:00 05/10/24 05/10/24 05/10/24 06:59 14:59 22:59 Intake Total 1125 / 3256.25 720 / 720 1000 / 1720 Output Total 700 / 1285 Balance 425 / 1971.25 720 / 720 1000 / 1720 Weight last 48 hrs Weight 70.579 kg Weight 70.443 kg Weight 70.443 kg Physical Exam Narrative: comfortable, TM 100f, vs noted heent- nc/at, eomi, anicteric neck -no jvp lungs clear heart reg abd soft, nt, nd, + bs ext no edema neuro a,a, o x 3 Data 05/10/24 04:10 05/10/24 04:10 Micro: Microbiology 05/08/24 13:20 Urine Culture - Final Urine Catheterized A&P Assessment and plan (1) GIAN (acute kidney injury): 73 year old male with lymphoma, 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 He is currently on Rituximab, autoimmune hemolytic anemia for which patient is on a high dose steroid taper, history of DVT admitted to the hospital on 03/03/24 with septic shock and Streptococcus bovis bacteremia. Patient has a history of A-fib, Echocardiogram Showed LVEF of 45 to 50%, moderate eccentric mitral regurgitation.+ type 2 DM. Patient is here w/ weakness, nausea, vomiting, fevers. 1. recurrent GIAN- in February 2024- cr peaked at 2.1 mg/dl. improved w/ fluids abx and steroids. -cr of 1.1- 1.2 mg/dl appears to be his baseline renal fxn- likely CKD stage 3a. - diff dx is prerenal azotemia, atn, no obstruction on CT scan -can be AIN from recurrent abx- however, cr was 1.2 mg/dl on 05-08-24 and heidi today to 1.6 mg/dl u/a w/ 2+ protein, 6-10 rbc, hyaline cast- if renal fxn does not improve, then consider sending serologies -check ck- unlikely rhabdomyolysis -monitor on ivf. hyaline casts on u/a is c/w prerenal azotemia -he denies NSAID use PPI can cause AIN creatinine is stable in the mid 1 range, patient follows with statistician applied, advised patient to see his statistician applied in 1 to 2 weeks. 2. mild inc LFT's- check ck. or can be shocked liver from hypotension 3. pt has inc AGMA- improved 4. hyponatremia- likely prerenal is improving seen and examined using audio/ visual equipment- telehealth visit aided by a RN pt consented to telehealth PDMP PDMP Reviewed: Not Reviewed Attestations Medical Necessity Statement*: per lori Coding Level of Care Code Acute Code for Chg Fwd Diagnoses GIAN (acute kidney injury) N17.9
[2024-05-10 21:13] LABS: ALBUMIN 2.7 g/dL (3.8-4.8); ALPHA 1 GLOBULIN 0.4 g/dL (0.2-0.3); ALPHA 2 GLOBULIN 0.8 g/dL (0.5-0.9); BETA 1 GLOBULIN 0.4 g/dL (0.4-0.6); BETA 2 GLOBULIN 0.3 g/dL (0.2-0.5); GAMMA GLOBULIN 1.1 g/dL (0.8-1.7)
[2024-05-14 17:05] LABS: Vit D 1,25 (Oh)2, Total 38 pg/mL (18-72); Vit D2 1,25 (Oh)2 <8 pg/mL; Vit D3 1,25 (Oh)2 38 pg/mL
== END 2024-05-10 18:27 | disposition home or self-care (01) | DRG 193 ==
LOC: ER 13:59 → ER IP 14:58 → MEDSURG 18:02
PROVIDERS: Internal Medicine Nephrology; Admitting Provider Internal Medicine; Emergency Provider Family Medicine; PCP Family Medicine; Visit Provider Internal Medicine
DX: J18.9 Pneumonia, unspecified organism (principal); J96.01 Acute respiratory failure with hypoxia; D59.10 Autoimmune hemolytic anemia, unspecified; D84.821 Immunodeficiency due to drugs; E87.1 Hypo-osmolality and hyponatremia; E87.20 Acidosis, unspecified; I48.0 Paroxysmal atrial fibrillation; D69.6 Thrombocytopenia, unspecified; I25.2 Old myocardial infarction; K52.9 Noninfective gastroenteritis and colitis, unspecified; K21.9 Gastro-esophageal reflux disease without esophagitis; N40.0 Benign prostatic hyperplasia without lower urinary tract symptoms; I34.0 Nonrheumatic mitral (valve) insufficiency; E11.22 Type 2 diabetes mellitus with diabetic chronic kidney disease; N18.31 Chronic kidney disease, stage 3a; K08.409 Partial loss of teeth, unspecified cause, unspecified class; Z86.711 Personal history of pulmonary embolism; Z99.81 Dependence on supplemental oxygen; Z90.81 Acquired absence of spleen; Z86.718 Personal history of other venous thrombosis and embolism; Z79.52 Long term (current) use of systemic steroids; Z85.72 Personal history of non-Hodgkin lymphomas; Z79.899 Other long term (current) drug therapy; Z79.01 Long term (current) use of anticoagulants; Z88.0 Allergy status to penicillin; Z88.8 Allergy status to other drugs, medicaments and biological substances; Z90.49 Acquired absence of other specified parts of digestive tract; Z87.891 Personal history of nicotine dependence; Z11.52 Encounter for screening for COVID-19; T45.1X5A Adverse effect of antineoplastic and immunosuppressive drugs, initial encounter; Z79.620 Long term (current) use of immunosuppressive biologic
CPT/HCPCS: 36415; 51798; 71045; 71250; 74176; 80048; 80053; 81001; 82306; 82436; 82550; 82570; 82652; 83605; 83735; 83883; 84133; 84145; 84155; 84165; 84300; 84550; 85025; 85610; 86038; 86160; 86334; 86803; 87040; 87086; 87637; 92610; 94760; 96365; 96367; 96375; 99285; G0378; J0692; J1956; J2405; J3370; J3372; J7030; J7050; J7120